=== PATIENT | male | born 1985 | race Caucasian/White ===

== ENCOUNTER 2020-01-31 09:28 | Outpatient (CLI) | payer MEDICARE, MEDICAID, SELFPAY ==
[2020-01-31 10:52] LABS: LDL Cholesterol Direct 64 mg/dL
[2020-01-31 11:15] LABS: Alanine Aminotransferase 65 U/L (4-50); Albumin Level 4.4 g/dL (3.5-5.1); Alkaline Phosphatase 94 U/L (38-126); Aspartate Amino Transferase 38 U/L (17-59); Bilirubin,Total 1.5 mg/dL (0.2-1.3); Blood Urea Nitrogen 21 mg/dL (9-20); Calcium 8.8 mg/dL (8.4-10.2); Carbon Dioxide 27 mmol/L (22-30); Chloride 106 mmol/L (98-107); Cholesterol 126 mg/dL (0-200); Estimated Glomerular Filt Rate > 60; Glucose 84 mg/dL (75-110); HDL Direct 26 mg/dL; Potassium 4.5 mmol/L (3.4-5.0); Sodium 139 mmol/L (137-145); Triglycerides 218 mg/dL (<150)
[2020-01-31 12:14] LABS: Hemoglobin A1C 4.8 % (<5.7)
== END 2020-01-31 09:29 | disposition home or self-care (01) ==
PROVIDERS: PCP Family Medicine Adolescent Medicine; Visit Provider Physician Assistant
DX: E11.9 Type 2 diabetes mellitus without complications (principal); I10 Essential (primary) hypertension; E78.01 Familial hypercholesterolemia
CPT/HCPCS: 36415; 80053; 80061; 83036

== ENCOUNTER 2020-03-25 13:49 | Emergency (ER) | payer MEDICARE, MEDICAID, SELFPAY ==
--- NOTE | ~2020-03-25 | XR_ITS ---
XR wrist RT min 3V 03/25/2020 14:27 INDICATION: Right wrist pain after recent trauma PROCEDURE: 4 views right wrist COMPARISON: No prior studies for comparison. FINDINGS: Fracture, dislocation or subluxation is not identified. The soft tissues appear within norm al limits. No foreign bodies are identified. IMPRESSION: 1: NO ACUTE BONE OR JOINT ABNORMALITY IDENTIFIED. Reviewed, dictated and finalized at location A.
[2020-03-25 13:52] VITALS: BP 128/94; PULSE 66; RESP 18; TEMP 36.7; O2SAT 98
--- NOTE | 2020-03-25 14:03 | ED.GENADULT ---
HPI - General Adult General Chief complaint: Extremity Injury, Upper Stated complaint: hand injury yesterday Time Seen by Provider: 03/25/20 13:50 Source: patient Mode of arrival: ambulatory Limitations: no limitations History of Present Illness HPI narrative: Patient is a 34-year-old male who presents to emergency department for evaluation of right wrist pain that began yesterday after falling onto the right wrist wall using his lawn more patient notes moderate aching pain worse with activity and movemen. Patient denies other injuries or complaints does note he has has intermittent numbness tingling in the hand patient has not taken anything for pain . t Related Data Home Medications Medication Instructions Recorded Confirmed clonazepam 1 mg PO BID 09/27/19 09/27/19 dicyclomine 20 mg PO Q6-8H PRN 09/27/19 09/27/19 glimepiride 4 mg PO DAILY 09/27/19 09/27/19 lamotrigine 150 mg PO BID 09/27/19 09/27/19 lisinopril 20 mg PO DAILY 09/27/19 09/27/19 metformin 1,000 mg PO BID 09/27/19 09/27/19 montelukast 10 mg PO DAILY 09/27/19 09/27/19 propranolol 160 mg PO DAILY 09/27/19 09/27/19 quetiapine [Seroquel] 200 mg PO BID 09/27/19 09/27/19 sumatriptan succinate 100 mg PO DIRECTED PRN 09/27/19 09/27/19 topiramate 50 mg PO BID 09/27/19 09/27/19 rosuvastatin mg 03/25/20 Allergies Allergy/AdvReac Type Severity Reaction Status Date / Time chlorpheniramine Allergy Unknown Other Verified 03/25/20 13:58 naproxen Allergy Unknown Other Verified 03/25/20 13:58 phenylephrine Allergy Unknown Other Verified 03/25/20 13:58 scopolamine Allergy Unknown Other Verified 03/25/20 13:58 ANTICHOLINERGICS,OTHER Allergy Unknown Other Uncoded 09/27/19 17:17 Review of Systems Review of Systems: All systems reviewed & are unremarkable except as noted in HPI and below PMFSH Past Medical History Medical History Eczema HTN (hypertension) Hyperlipidemia Mentally challenged Reflux gastritis Exam Narrative: Exam Narrative: GENERAL: Well-appearing, well-nourished, and in no acute distress. HEAD: Normocephalic, atraumatic. EYES: PERRLA and EOMI. EXTREMITIES: Normal range of motion. No edema. Tenderness of the right wrist no deformity noted SKIN: Warm, dry, no rash. NEURO: No focal deficits. Alert and oriented x3. Neurovascularly intact. Capillary refill less than 2 seconds PSYCH: Normal mood and affect. Course Course Emergency Course: Patient in the room aware of case findings treatment plan and diagnosis Vital Signs Vital signs: Vital Signs Temperature 98.1 F 03/25/20 13:52 Pulse Rate 66 03/25/20 13:52 Respiratory Rate 18 03/25/20 13:52 Blood Pressure 128/94 H 03/25/20 13:52 Pulse Oximetry 98 03/25/20 13:52 Temperature 98.1 F 03/25/20 13:52 Pulse Rate 66 03/25/20 13:52 Respiratory Rate 18 03/25/20 13:52 Blood Pressure 128/94 H 03/25/20 13:52 Pulse Oximetry 98 03/25/20 13:52 Medical Decision Making MDM Narrative Medical decision making narrative: Patients injury or pain is consistent with musculoskeletal etiology. No signs of neurological or vascular compromise on exam. Compartments and tisues are soft without signs of compartment syndrome. Pain is felt appropriate for further evaluation on an outpatient basis. Vital Signs Vital Signs: Vital Signs Temperature 98.1 F 03/25/20 13:52 Pulse Rate 66 03/25/20 13:52 Respiratory Rate 18 03/25/20 13:52 Blood Pressure 128/94 H 03/25/20 13:52 Pulse Oximetry 98 03/25/20 13:52 Temperature 98.1 F 03/25/20 13:52 Pulse Rate 66 03/25/20 13:52 Respiratory Rate 18 03/25/20 13:52 Blood Pressure 128/94 H 03/25/20 13:52 Pulse Oximetry 98 03/25/20 13:52 Imaging Data Radiologist's impression: ITS Impressions Wrist X-Ray 03/25/20 14:33 IMPRESSION: 1: NO ACUTE BONE OR JOINT ABNORMALITY IDENTIFIED. Discharge Plan Discharge Clinical Impression: Sprain an
[2020-03-25 15:01] VITALS: BP 107/76; PULSE 66; RESP 16; TEMP 36.4; O2SAT 95
== END 2020-03-25 15:19 | disposition home or self-care (01) ==
PROVIDERS: Emergency Provider Emergency Medicine; PCP Family Medicine Adolescent Medicine
DX: S63.501A Unspecified sprain of right wrist, initial encounter (principal); S66.911A Strain of unspecified muscle, fascia and tendon at wrist and hand level, right hand, initial encounter; I10 Essential (primary) hypertension; E78.5 Hyperlipidemia, unspecified; K21.9 Gastro-esophageal reflux disease without esophagitis; W18.39XA Other fall on same level, initial encounter; Y93.H2 Activity, gardening and landscaping
CPT/HCPCS: 73110; 99283

== ENCOUNTER 2021-01-15 12:08 | Outpatient (CLI) | payer MEDICARE, MEDICAID, SELFPAY ==
[2021-01-15 12:54] LABS: Alanine Aminotransferase 44 U/L (4-50); Albumin Level 4.3 g/dL (3.5-5.1); Alkaline Phosphatase 80 U/L (38-126); Anion Gap 7 mmol/L (8-16); Aspartate Amino Transferase 36 U/L (17-59); Bilirubin,Total 0.8 mg/dL (0.2-1.3); Blood Urea Nitrogen 19 mg/dL (9-20); Calcium 9.1 mg/dL (8.4-10.2); Carbon Dioxide 22 mmol/L (22-30); Chloride 112 mmol/L (98-107); Cholesterol 107 mg/dL (0-200); Estimated Glomerular Filt Rate > 60; Glucose 105 mg/dL (75-110); HDL Direct 31 mg/dL; Hemoglobin A1C 4.6 % (<5.7); Sodium 141 mmol/L (137-145); Triglycerides 144 mg/dL (<150)
[2021-01-15 13:08] LABS: LDL Cholesterol Direct 52 mg/dL
== END 2021-01-15 12:09 | disposition home or self-care (01) ==
PROVIDERS: PCP Family Medicine Adolescent Medicine; Visit Provider Physician Assistant
DX: E78.01 Familial hypercholesterolemia (principal); E11.9 Type 2 diabetes mellitus without complications; I10 Essential (primary) hypertension
CPT/HCPCS: 36415; 80053; 80061; 83036

== ENCOUNTER 2021-02-28 21:17 | Emergency (ER) | payer MEDICARE, MEDICAID, SELFPAY ==
--- NOTE | ~2021-02-28 | CT_ITS ---
EXAMINATION: CT abdomen pelvis w con EXAM DATE: 02/28/2021 22:52 INDICATION: Mid abdominal pain. TECHNIQUE: Spiral CT of the abdomen and pelvis was performed following intravenous injection of 100 m L Omnipaque 350. Axial, coronal and sagittal images of the abdomen and pelvis were reviewed. The do se-length product (DLP) for this examination was 1148.01 mGy-cm. The exposure was tailored according to patient size (auto mA exposure control), and iterative reconstruction (ASIR) was used as addition al dose reduction technique. Comparison is made to prior examination from 01/09/2015. FINDINGS: There is mild hepatic steatosis without suspicious focal lesion identified. Spleen, adrenal glands, pancreas are unremarkable. Gallbladder is unremarkable. No biliary obstruction. Portal an d splenic veins are patent. Kidneys enhance symmetrically. There is no hydronephrosis. Lobular marisela l contours bilaterally. The prostate is unremarkable. Small bilateral inguinal fat-containing hernia s. Some diffuse bladder wall thickening, could indicate chronic cystitis. Acute cystitis not excluda ble. There is no retroperitoneal or pelvic lymphadenopathy. The appendix is normal. The stomach and small bowel are unremarkable. There is expected amount of c olonic stool. No free intraperitoneal gas. The heart is normal in size. There are no pericardial or pleural effusions. The lung bases are unremarkable. The bones are unremarkable. IMPRESSION: 1. Mild diffuse bladder wall thickening, could indicate cystitis. Reviewed, dictated and finalized at location A.
[2021-02-28 21:24] VITALS: BP 124/81; PULSE 70; RESP 18; TEMP 36.2; O2SAT 100
[2021-02-28 21:40] LABS: Basophils Percent Auto 0.3 % (0.2-1.2); Eosinophils Absolute Auto 0.1 K/mm3 (0-0.3); Eosinophils Percent Auto 0.8 % (0-4.4); Hematocrit 46.6 % (42.0-52.0); Hemoglobin 16.1 g/dL (14.0-18.0); Immature Granulocyte Absolute 0.03 K/mm3 (0.00-0.031); Immature Granulocyte Percent A 0.3 % (0-0.5); Lymphocytes Absolute Auto 1.64 K/mm3 (0.9-3.2); Lymphocytes Percent Auto 16.1 % (18.3-44.2); Mean Corpuscular HGB Conc 34.5 g/dl (32-36); Mean Corpuscular Hemoglobin 31.1 pg (26-34); Mean Corpuscular Volume 90.1 fl (80-100); Mean Platelet Volume 9.6 fl (7.4-10.4); Monocytes Absolute Auto 0.4 K/mm3 (0.1-0.6); Monocytes Percent Auto 4.3 % (2.6-8.5); Neutrophils Percent Auto 78.2 % (45.5-73.1); Platelet Count Result 188 k/mm3 (150-375); Red Blood Count 5.17 M/mm3 (4.6-6.20); Red Cell Distribution Width 12.4 % (11.5-14.5); White Blood Count 10.2 K/mm3 (4.5-10.0)
[2021-02-28 21:56] LABS: Alanine Aminotransferase 60 U/L (4-50); Albumin Level 4.6 g/dL (3.5-5.1); Alkaline Phosphatase 88 U/L (38-126); Anion Gap 8 mmol/L (8-16); Aspartate Amino Transferase 38 U/L (17-59); Bilirubin,Total 1.3 mg/dL (0.2-1.3); Blood Urea Nitrogen 22 mg/dL (9-20); Calcium 9.1 mg/dL (8.4-10.2); Carbon Dioxide 25 mmol/L (22-30); Chloride 108 mmol/L (98-107); Estimated Glomerular Filt Rate 46; Glucose 138 mg/dL (75-110); Lipase 146 U/L (23-300); Sodium 141 mmol/L (137-145)
[2021-02-28 22:10] LABS: Add Urine Microscopic? YES; Appearance Urine Cloudy (Clear); Bacteria Urine Trace /hpf; Bilirubin Urine Negative (Negative); Blood Urine Negative (Negative); Color Urine Amber (Yellow); Glucose Urine UA Negative (Negative); Ketones Urine Negative (Negative); Leukocyte Esterase Ur Negative LEU/UL (Negative); Mucus Urine Heavy /lpf; Nitrate Urine Negative (Negative); Protein Urine 2+ mg/dL (Negative); RBC Urine 0-2 /hpf (0-2); Specific Grav Ur 1.027 (1.001-1.035); Squamous Epithelial Cell Urine Rare /hpf (Few); WBC Urine 0-3 /hpf
--- NOTE | 2021-02-28 22:20 | ED.GENADULT ---
HPI - General Adult General Chief complaint: Abdominal Pain Stated complaint: migraine, blood in stool and abd pain Time Seen by Provider: 02/28/21 22:16 Source: RN notes reviewed History of Present Illness HPI narrative: Patient presents emergency department from home for multiple complaints. Patient states over the past month has been having abdominal pain located around the periumbilical area associated with diarrhea. States that this is become worse today states that with this has been having intermittent blood in his stool that appears like popcorn patient also states he developed a frontal headache today consistent with his migraine headaches. States he took his home migraine medications well as Advil at home with no relief of his pain states is associated with nausea and vomiting denies any fevers or chills vision changes chest pain shortness of breath or any other symptoms Related Data Allergies Allergy/AdvReac Type Severity Reaction Status Date / Time No Known Allergies Allergy Verified 02/28/21 22:09 Review of Systems Review of Systems: Narrative: Gen.: Denies fevers or chills Eyes: Denies eye pain or visual change ENT: Denies congestion Respiratory: Denies shortness of breath or cough CV: Denies chest pain or palpitations GI: See HPI denies burning, urgency, frequency or hematuria Musculoskeletal: Denies back pain or muscle pain Neuro: Denies numbness, tingling, weakness or focal weakness reports headache Skin: Denies rash Except as documented, all other systems reviewed and negative [facility] Past Medical History Medical History (Updated 03/01/21 @ 01:40 by Nino Waters DO) ADHD Migraine headache Social History Social History (Updated 02/28/21 @ 22:21 by Nino Waters DO) Smoking status: Never smoker Exam Narrative: Exam Narrative: APPEARANCE: No acute distress, nontoxic, resting in bed EYES: EOMI, PERRL HEENT: Normocephalic, atraumatic, OMM RESPIRATORY: No respiratory distress Clear to auscultation bilaterally with no rhonchi wheezing or rales. CARDIOVASCULAR: Regular rate and rhythm without murmurs rubs or gallops. ABDOMINAL: Soft, nondistended, diffusely tender palpation no rebound or guarding Rectal: No hemorrhoids or fissures soft brown stool that is Hemoccult negative MUSCULOSKELETAl: Moves all extremities. No clubbing, cyanosis or edema. NEURO: Awake and alert x 4. Following commands, speech normal, no focal deficits SKIN:: Warm, dry. No rashes lesions or abrasions PSYCHIATRIC: Normal affect/mood, Course Course Emergency Course: : Discussed with Dr. Carranza for Dr. Santos presentation work-up discussed mildly elevated creatinine need for recheck as outpatient discussed CT results agrees with plan for Flagyl discharge to follow-up as an outpatient States she is feeling much better this time states headache has resolved Discussed with patient results of workup and diagnosis. Discussed need for follow-up with primary care, proper use of medication, and reasons to return to the emergency department. Patient understands and agrees to current treatment plan Vital Signs Vital signs: Vital Signs Temperature 97.2 F L 02/28/21 21:24 Pulse Rate 70 02/28/21 21:24 Respiratory Rate 18 02/28/21 21:24 Blood Pressure 124/81 02/28/21 21:24 Pulse Oximetry 100 02/28/21 21:24 Temperature 97.2 F L 02/28/21 21:24 Pulse Rate 70 02/28/21 21:24 Respiratory Rate 18 02/28/21 21:24 Blood Pressure 124/81 02/28/21 21:24 Pulse Oximetry 100 02/28/21 21:24 Medical Decision Making MDM Narrative Medical decision making narrative: Patient's headache was not sudden or maximal in onset. There are no focal deficits on exam. Subarachnoid hemorrhage is felt to be unlikely at this time. There is no history of fever and neck is supple to evaluation without meningismus. Meningitis is felt to be unlikely. No traumatic history or signs of trauma on evaluation. Risk factors for cerebral v
[2021-02-28] MEDS: SODIUM CHLORIDE 0.9% IV 1,000 ML 999 ML IV CONT (22:40)
[2021-02-28] MEDS: ONDANSETRON INJ 4 MG/2 ML VIAL IV PUSH (22:41)
[2021-03-01] MEDS: SODIUM CHLORIDE 0.9% IV 1,000 ML 999 ML IV CONT
[2021-03-01] MEDS: metroNIDAZOLE 250 MG TABLET 500 MG PO (01:34)
[2021-03-01] MEDS: PROMETHAZINE HCL 25 MG/ML AMPUL 12.5 MG IV PUSH (01:36)
[2021-03-01 02:01] VITALS: BP 119/79; PULSE 79; RESP 18; O2SAT 97
== END 2021-03-01 02:04 | disposition home or self-care (01) ==
PROVIDERS: Emergency Provider Emergency Medicine; PCP Family Medicine Adolescent Medicine
DX: K52.9 Noninfective gastroenteritis and colitis, unspecified (principal); G43.909 Migraine, unspecified, not intractable, without status migrainosus
CPT/HCPCS: 36415; 74177; 80053; 81001; 83690; 85025; 96361; 96365; 96375; 99284; A9270; J0131; J2405; J2550; J7030; Q9967

== ENCOUNTER 2021-03-18 10:09 | Outpatient (CLI) | payer MEDICARE, MEDICAID, SELFPAY ==
[2021-03-18 10:59] LABS: Add Urine Microscopic? YES; Appearance Urine Cloudy (Clear); Bilirubin Urine Negative (Negative); Blood Urine Negative (Negative); Color Urine Yellow (Yellow); Glucose Urine UA Negative (Negative); Ketones Urine Negative (Negative); Leukocyte Esterase Ur Negative LEU/UL (NEGATIVE); Mucus Urine Few /lpf; Nitrate Urine Negative (Negative); Protein Urine 1+ mg/dL (Negative); RBC Urine 0-2 /hpf (0-2); Specific Grav Ur 1.023 (1.001-1.035); Squamous Epithelial Cell Urine Rare /hpf (Few); Urobilinogen Urine Negative mg/dL (<2.0); WBC Urine 0-3 /hpf (0-3)
== END 2021-03-18 10:10 | disposition home or self-care (01) ==
PROVIDERS: PCP Family Medicine Adolescent Medicine; Visit Provider Physician Assistant
DX: R39.15 Urgency of urination (principal)
CPT/HCPCS: 81001; 87086

== ENCOUNTER 2021-06-23 17:43 | Emergency (ER) | payer MEDICARE, MEDICAID, SELFPAY ==
[2021-06-23 17:46] VITALS: BP 107/73; PULSE 77; RESP 18; TEMP 37; O2SAT 100
[2021-06-23] MEDS: TETANUS,DIPHTHERIA,AC PERTUSSIS ADULT (0.5 ML) BOOSTRIX IM (18:52)
[2021-06-23 18:53] LABS: Glucose Point of Care 116 mg/dl (65-105)
--- NOTE | 2021-06-23 19:20 | ED.SKABFB ---
HPI - Skin/Abscess/Foreign Bdy General Chief complaint: Skin/Abscess/Foreign Body Stated complaint: ? Spider Bite Time Seen by Provider: 06/23/21 18:32 History of Present Illness HPI narrative: Patient presents with concern for rash to the leg. He reports he was cutting his grass when his leg felt warm he looked down and saw some erythema in his leg felt heavy so he wanted come in for evaluation. He reports his initially had some itching to the area but that has now resolved and his symptoms are improving with exception of his leg feeling warm. Denies any fevers, chills, nausea, vomiting, dizziness Related Data Home Medications Medication Instructions Recorded Confirmed clonazepam 1 mg PO BID 09/27/19 09/27/19 dicyclomine 20 mg PO Q6-8H PRN 09/27/19 09/27/19 glimepiride 4 mg PO DAILY 09/27/19 09/27/19 lamotrigine 150 mg PO BID 09/27/19 09/27/19 lisinopril 20 mg PO DAILY 09/27/19 09/27/19 metformin 1,000 mg PO BID 09/27/19 09/27/19 montelukast 10 mg PO DAILY 09/27/19 09/27/19 propranolol 160 mg PO DAILY 09/27/19 09/27/19 quetiapine [Seroquel] 200 mg PO BID 09/27/19 09/27/19 sumatriptan succinate 100 mg PO DIRECTED PRN 09/27/19 09/27/19 topiramate 50 mg PO BID 09/27/19 09/27/19 rosuvastatin mg 03/25/20 Allergies Allergy/AdvReac Type Severity Reaction Status Date / Time chlorpheniramine Allergy Unknown Other Verified 06/23/21 17:50 naproxen Allergy Unknown Nose Bleed Verified 06/23/21 17:50 phenylephrine Allergy Unknown Other Verified 06/23/21 17:50 scopolamine Allergy Unknown Other Verified 06/23/21 17:50 ANTICHOLINERGICS,OTHER Allergy Unknown Other Uncoded 06/23/21 17:50 Review of Systems Review of Systems: CONSTITUTIONAL: Denies fever, chills, or sweats. EYES: Denies visual changes, redness, or discharge. ENT: Denies rhinorrhea, congestion, sore throat, or otalgia. CARDIOVASCULAR: Denies chest pain, palpitations, or edema. RESPIRATORY: Denies cough or dyspnea. GASTROINTESTINAL: Denies abdominal pain, nausea, vomiting, or diarrhea. GENITOURINARY: Denies dysuria or hematuria. SKIN: Denies current itching. MUSCULOSKELETAL: Denies back pain, joint pain, or myalgia. NEUROLOGIC: Denies headache, numbness, dizziness, or weakness. PSYCHIATRIC: Denies anxiety or depression. All systems reviewed & are unremarkable except as noted in HPI and below PMFSH Past Medical History Medical History (Updated 06/23/21 @ 19:24 by Akil Diaz MD) Eczema HTN (hypertension) Hyperlipidemia Mentally challenged Reflux gastritis Exam Narrative: GENERAL: Well-appearing, well-nourished, and in no acute distress. HEAD: Normocephalic, atraumatic. EYES: PERRLA and EOMI. ENT: Nares clear, no rhinorrhea or epistaxis. Mucous membranes moist. NECK: Supple. No adenopathy or masses. No carotid bruits or JVD ABDOMEN: Soft, nontender, nondistended, normal active bowel sounds. EXTREMITIES: Normal range of motion. No edema. SKIN: Small area of erythema on the anterior aspect of the lower leg approximately 2 cm x 2 cm there is no focal fluctuance there is no open or draining wounds there is no significant tenderness. NEURO: No focal deficits. Alert and oriented x3. PSYCH: Normal mood and affect. Course Reevaluation(s) Reevaluation #1: Patient looks clinically well glucose is reassuring Tdap was administered outpatient plan reviewed with patient Date: 06/23/21 Time: 19:22 Vital Signs Vital signs: Vital Signs Temperature 37.0 C 06/23/21 17:46 Pulse Rate 77 06/23/21 17:46 Respiratory Rate 18 06/23/21 17:46 Blood Pressure 107/73 06/23/21 17:46 Pulse Oximetry 100 06/23/21 17:46 Temperature 37.0 C 06/23/21 17:46 Pulse Rate 77 06/23/21 17:46 Respiratory Rate 18 06/23/21 17:46 Blood Pressure 107/73 06/23/21 17:46 Pulse Oximetry 100 06/23/21 17:46 MDM - Skin/Abscess/Foreign Bdy MDM Narrative Medical decision making narrative: H&P as above, vss, pt looks clinically well, exam without significant tende
== END 2021-06-23 19:33 | disposition home or self-care (01) ==
PROVIDERS: Emergency Provider Emergency Medicine; PCP Family Medicine Adolescent Medicine
DX: L25.9 Unspecified contact dermatitis, unspecified cause (principal); I10 Essential (primary) hypertension; E78.5 Hyperlipidemia, unspecified; Z23 Encounter for immunization
CPT/HCPCS: 82948; 90471; 90715; 99283

== ENCOUNTER 2021-07-06 19:22 | Emergency (ER) | payer MEDICARE, MEDICAID, SELFPAY ==
[2021-07-06 19:34] VITALS: BP 117/79; PULSE 68; RESP 16; TEMP 36.6; O2SAT 100
--- NOTE | 2021-07-06 19:51 | ED.GENADULT ---
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 He also reports being stung on right index finger. He reports right upper eyelid swelling, erythema, and itching. Related Data Home Medications Medication Instructions Recorded Confirmed clonazepam 1 mg PO BID 09/27/19 07/06/21 lamotrigine 150 mg PO BID 09/27/19 07/06/21 lisinopril 20 mg PO DAILY 09/27/19 07/06/21 metformin 1,000 mg PO BID 09/27/19 07/06/21 montelukast 10 mg PO DAILY 09/27/19 07/06/21 propranolol 160 mg PO DAILY 09/27/19 07/06/21 quetiapine [Seroquel] 200 mg PO BID 09/27/19 07/06/21 sumatriptan succinate 100 mg PO DIRECTED PRN 09/27/19 07/06/21 topiramate 50 mg PO BID 09/27/19 07/06/21 rosuvastatin 20 mg PO DAILY 03/25/20 07/06/21 Adult One Daily Multivitamin 1 cap PO DAILY 07/06/21 07/06/21 Allergies Allergy/AdvReac Type Severity Reaction Status Date / Time chlorpheniramine Allergy Unknown Other Verified 07/06/21 19:37 naproxen Allergy Unknown Nose Bleed Verified 07/06/21 19:37 phenylephrine Allergy Unknown Other Verified 07/06/21 19:37 scopolamine Allergy Unknown Other Verified 07/06/21 19:37 ANTICHOLINERGICS,OTHER Allergy Unknown Other Uncoded 07/06/21 19:37 Review of Systems Review of Systems: Denies fever, chills, sweats, change in appetite, malaise, poor p.o. intake, recent weight loss, change in appetite, myalgias, lymphadenopathy, LOC, dizziness, vision changes, eye drainage, burning sensation, petechiae, blistering, streaking, warmth, lesions, easy bruising, lip/tongue/throat swelling, facial swelling, abdominal pain, nausea, vomiting, numbness, tingling, loss of sensation, cough, wheezing, chest pain, and heart palpitations/murmurs. [facility] Past Medical History Medical History (Updated 07/06/21 @ 20:07 by Randall Gomez, OLI, ) Eczema HTN (hypertension) Hyperlipidemia Mentally challenged Reflux gastritis Comments I have reviewed and agree with the patient's past medical, surgical, social, and family hx as documented by the RN. There is no relevant family history pertinent to the presenting complaint. Exam Narrative: GENERAL: Well-appearing, well-nourished, and in no acute distress. HEAD: Normocephalic, atraumatic. No facial swelling appreciated. EYES: PERRLA and EOMI. Moderate erythema and swelling noted to right upper eyelid. Small puncture wound consistent with insect sting noted to lateral aspect of right upper eyelid. Puncture wound measures approximately 1 mm in size. No evidence of drainage. ENT: Nares clear, no rhinorrhea or epistaxis.Mucous membranes moist and pink. Uvula is midline without erythema and swelling. No evidence of obstruction, petechial rash, cobblestoning, lesions, ulcers, erythema, swelling, exudates, peritonsillar abscess, tenting, or drooling. Breath odor and voice normal. NECK: Supple. No Lymphadenopathy or nuchal rigidity appreciated. CHEST: Bilateral lung conn are clear to auscultation. No respiratory distress. No evidence of cough or pleuritic cp upon examination. HEART: Regular rate and rhythm. No murmur, gallop, or rub heard. EXTREMITIES: Normal range of motion. No edema. SKIN: Warm, dry. Right index finger with mild erythema. Small puncture wound noted to medial aspect of proximal phalanx of right index finger. Puncture wound consistent with insect sting. Measures approx 1 mm in size. No evidence of cellulitis, abscess, streaking, induration, abrasions/lacerations, petechiae, hematoma, contusion, drainage, or bleeding. NEURO: No focal deficits. Alert and oriented x3. Course Vital Signs Vital signs: Vital Signs Tempera
[2021-07-06] MEDS: methylPREDNISolone SOD SUCC 125 MG VIAL IM (20:02)
== END 2021-07-06 20:17 | disposition home or self-care (01) ==
PROVIDERS: Emergency Provider Nurse Practitioner Family; PCP Family Medicine Adolescent Medicine
DX: T63.441A Toxic effect of venom of bees, accidental (unintentional), initial encounter (principal); I10 Essential (primary) hypertension; E78.5 Hyperlipidemia, unspecified; F99 Mental disorder, not otherwise specified; K21.9 Gastro-esophageal reflux disease without esophagitis
CPT/HCPCS: 96372; 99213; G0463; J2930

== ENCOUNTER 2022-06-05 19:09 | Emergency (ER) | payer MEDICARE, MEDICAID, SELFPAY ==
[2022-06-05 19:20] VITALS: BP 124/95; PULSE 69; RESP 16; TEMP 36.6; O2SAT 100
--- NOTE | 2022-06-05 19:30 | ED.SKABFB ---
HPI - Skin/Abscess/Foreign Bdy General Chief complaint: Skin/Abscess/Foreign Body Stated complaint: chemical burn Time Seen by Provider: 06/05/22 19:30 Source: patient, RN notes reviewed and old records reviewed Mode of arrival: ambulatory History of Present Illness HPI narrative: Patient reports he was cleaning at his grandmother's house using oxy-clean and he had it in his pocket and it broke going onto his skin on his right upper thigh, which occurred last night. patient reports that he went and showered immediately after it happened. Patient has red irregular shaped irritated skin area to the lateral aspect of his right thigh with no present drainage noted, small scab area noted, area measures 14 cm X 4 cm. patient denies any acute pain to area or any chills or sweats, denies any fevers. MD complaint: rash Onset (ago): day(s) (1) Tetanus up to date: yes Location: RLE (lateral thigh) Related Data Home Medications Medication Instructions Recorded Confirmed clonazepam 1 mg tablet 1 mg PO BID 09/27/19 06/05/22 quetiapine 200 mg tablet (Seroquel) 200 mg PO BID 09/27/19 06/05/22 Allergies Allergy/AdvReac Type Severity Reaction Status Date / Time chlorpheniramine Allergy Unknown Other Verified 06/05/22 19:18 naproxen Allergy Unknown Nose Bleed Verified 06/05/22 19:18 phenylephrine Allergy Unknown Other Verified 06/05/22 19:18 scopolamine Allergy Unknown Other Verified 06/05/22 19:18 ANTICHOLINERGICS,OTHER Allergy Unknown Other Uncoded 06/05/22 19:18 [facility] Past Medical History Medical History (Updated 06/05/22 @ 20:00 by Debora Enrique NP) ADHD Anxiety and depression Diabetes type 2, controlled Eczema History of arm fracture left distal radius 04/1990 History of chickenpox 04/1990 HTN (hypertension) Mentally challenged Migraine headache Reflux gastritis Surgical History Surgical History (Updated 05/11/22 @ 08:07 by Earnest Santos MD) History of tonsillectomy (2007) Social History Social History (Updated 06/05/22 @ 20:00 by Debora Enrique NP) Smoking status: Never smoker Substance use type: does not use Living arrangements: with family Gender identity (if verbalized by the patient): Male Comments At time of signature, agree with nursing past medical, surgical, social and family history. There is no relevant family history pertinent to the presenting complaint Exam Narrative: GENERAL: Well-appearing, well-nourished, and in no acute distress. HEAD: Normocephalic, atraumatic. EYES: PERRLA and EOMI. ENT: Nares clear, no rhinorrhea or epistaxis. Mucous membranes moist. TMs normal with good light reflex throat pink with no exudates or lesions no tonsils present NECK: Supple. No lymphadenopathy CHEST: Clear to auscultation. No respiratory distress. No cough or congestion SaO2 100% on room air HEART: Regular rate and rhythm. No murmur heard. Normal peripheral pulses. ABDOMEN: Soft, nontender, nondistended, normal active bowel sounds. EXTREMITIES: Normal range of motion. No edema. SKIN: Warm, dry, no rash. 14 cm x 4 cm red irritated area to lateral right thigh no drainage noted some scabbing denies any acute pain to area NEURO: No focal deficits. Alert and oriented x3. Course Course Level of Care: Express Care Visit Vital Signs Vital signs: Vital Signs Temperature 36.6 C 06/05/22 19:20 Pulse Rate 69 06/05/22 19:20 Respiratory Rate 16 06/05/22 19:20 Blood Pressure 124/95 H 06/05/22 19:20 Pulse Oximetry 69 L 06/05/22 19:20 Temperature 36.6 C 06/05/22 19:20 Pulse Rate 69 06/05/22 19:20 Respiratory Rate 16 06/05/22 19:20 Blood Pressure 124/95 H 06/05/22 19:20 Pulse Oximetry 69 L 06/05/22 19:20 MDM - Skin/Abscess/Foreign Bdy Differential Diagnosis Differential diagnosis: Likely abscess of skin or subcutaneous tissue, cellulitis, eczema and contact dermatitis Medical Records Attestation: I reviewed the patient's medical records. Critical C
== END 2022-06-05 19:48 | disposition home or self-care (01) ==
PROVIDERS: Emergency Provider Registered Nurse; PCP Family Medicine Adolescent Medicine
DX: L24.0 Irritant contact dermatitis due to detergents (principal); E11.9 Type 2 diabetes mellitus without complications; I10 Essential (primary) hypertension; F41.9 Anxiety disorder, unspecified; F32.A Depression, unspecified; F79 Unspecified intellectual disabilities
CPT/HCPCS: 99213; G0463

== ENCOUNTER 2022-08-03 15:22 | Outpatient (CLI) | payer MEDICARE, MEDICAID, SELFPAY ==
[2022-08-03 16:07] LABS: Hemoglobin A1C 5.6 % (<5.7)
[2022-08-03 16:13] LABS: Alanine Aminotransferase 49 U/L (6-50); Albumin Level 4.8 g/dL (3.5-5.1); Alkaline Phosphatase 99 U/L (38-126); Anion Gap 13 mmol/L (8-16); Aspartate Amino Transferase 35 U/L (17-59); Bilirubin,Total 1.2 mg/dL (0.2-1.3); Blood Urea Nitrogen 25 mg/dL (9-20); Calcium 9.6 mg/dL (8.4-10.2); Carbon Dioxide 18 mmol/L (22-30); Chloride 111 mmol/L (98-107); Cholesterol 160 mg/dL (0-200); Estimated Glomerular Filt Rate > 60; Glucose 118 mg/dL (65-110); HDL Direct 36 mg/dL; Potassium 4.1 mmol/L (3.4-5.0); Sodium 142 mmol/L (137-145); Triglycerides 143 mg/dL (<150)
[2022-08-03 16:24] LABS: LDL Cholesterol Direct 81 mg/dL
== END 2022-08-03 15:23 | disposition home or self-care (01) ==
PROVIDERS: PCP Family Medicine Adolescent Medicine; Visit Provider Family Medicine Adolescent Medicine
DX: G62.9 Polyneuropathy, unspecified (principal); E11.9 Type 2 diabetes mellitus without complications; K76.0 Fatty (change of) liver, not elsewhere classified; E78.01 Familial hypercholesterolemia; I10 Essential (primary) hypertension
CPT/HCPCS: 36415; 80053; 80061; 82607; 83036; 84443

== ENCOUNTER 2023-02-05 13:52 | Emergency (ER) | payer MEDICARE, MEDICAID, SELFPAY ==
[2023-02-05 14:42] VITALS: BP 131/94; PULSE 71; RESP 16; TEMP 36.9; O2SAT 99
--- NOTE | 2023-02-05 15:16 | ED.URI ---
HPI - URI/Sore Throat General Chief Complaint: Upper Respiratory Infection Stated Complaint: CHEST CONGESITON/VOMITING Time Seen by Provider: 02/05/23 15:16 Source: patient and RN notes reviewed Mode of arrival: ambulatory Limitations: no limitations History of Present Illness HPI Narrative: 37-year-old male with a history of diabetes and hypertension presented for complaint of sinus congestion, drainage, and cough for about 1 month. Reports a brief episode of vomiting last week, which resolved on its own. He denies associated shortness of breath, nausea, diarrhea, fevers or chills. Reports taking multiple [id number] medications for symptoms. Denies sick contacts. MD elicited complaint: cough Related Data Home Medications Medication Instructions Recorded Confirmed clonazepam 1 mg tablet 1 mg PO BID 09/27/19 02/05/23 quetiapine 200 mg tablet (Seroquel) 200 mg PO TID 07/27/22 02/05/23 lamotrigine 150 mg tablet 150 mg PO DAILY 02/05/23 02/05/23 Allergies Allergy/AdvReac Type Severity Reaction Status Date / Time chlorpheniramine Allergy Unknown Other Verified 02/05/23 15:12 naproxen Allergy Unknown Nose Bleed Verified 02/05/23 15:12 phenylephrine Allergy Unknown Other Verified 02/05/23 15:12 scopolamine Allergy Unknown Other Verified 02/05/23 15:12 ANTICHOLINERGICS,OTHER Allergy Unknown Other Uncoded 02/05/23 15:12 Review of Systems Review of Systems: CONSTITUTIONAL: Denies malaise, chills, sweats, fever EYES: Denies visual changes, redness, or discharge ENT: Reports rhinorrhea, congestion, sinus pain, denies otalgia, sore throat CARDIOVASCULAR: Denies chest pain, palpitations, edema RESPIRATORY: Reports cough, post nasal drainage. Denies dyspnea GASTROINTESTINAL: Denies abdominal pain, nausea, vomiting, diarrhea SKIN: Denies rash or itching MUSCULOSKELETAL: Denies myalgia NEUROLOGIC: Denies headache PMFSH Past Medical History Medical History ADHD Anxiety and depression Diabetes type 2, controlled Eczema History of arm fracture left distal radius 04/1990 History of chickenpox 04/1990 HTN (hypertension) Mentally challenged Migraine headache Reflux gastritis Surgical History Surgical History History of tonsillectomy (2007) Social History Social History Smoking status: Never smoker Second hand tobacco smoke exposure: No Alcohol intake: never Substance use: never Substance use type: does not use Living arrangements: with family Occupation/Education: other Gender identity (if verbalized by the patient): Male Exam Narrative: GENERAL: mildly Ill-appearing, nontoxic no acute distress. HEAD: Normocephalic EYES: PERRLA, conjunctivae clear ENT: Mucous membranes moist. TMs pearly riojas with dull light reflex bilaterally; no tragal tenderness. Oropharynx without lesions or exudate CHEST: Clear to auscultation, breath sounds equal. No wheezing, rhonchi, rales, or stridor. No respiratory distress, speaks in full sentences. HEART: Regular rate and rhythm. No murmur heard. SKIN: Warm, dry, no rash. NEURO: Alert and oriented x3. PSYCH: Normal mood and affect Course Course Emergency Course: Patient is aware of diagnosis, understands and agrees to treatment plan. Anticipatory guidance given. Patient agrees to follow-up as directed and is aware of reasons to seek care at the emergency department. Portions of this record may have been created with voice recognition software Level of Care: Express Care Visit Vital Signs Vital signs: Vital Signs Temperature 98.4 F 02/05/23 14:42 Pulse Rate 71 02/05/23 14:42 Respiratory Rate 16 02/05/23 14:42 Blood Pressure 131/94 H 02/05/23 14:42 Pulse Oximetry 99 02/05/23 14:42 Temperature 98.4 F 02/05/23 14:42 Pulse Rate 71 02/05/23 14:42 Respiratory Rate
== END 2023-02-05 15:26 | disposition home or self-care (01) ==
PROVIDERS: Emergency Provider Nurse Practitioner Family; PCP Family Medicine Adolescent Medicine
DX: J06.9 Acute upper respiratory infection, unspecified (principal); F41.9 Anxiety disorder, unspecified; F32.A Depression, unspecified; I10 Essential (primary) hypertension; E11.9 Type 2 diabetes mellitus without complications
CPT/HCPCS: 99213; G0463

== ENCOUNTER 2023-04-19 11:04 | Emergency (ER) | payer MEDICARE, MEDICAID, SELFPAY ==
--- NOTE | 2023-04-19 11:11 | ED.URI ---
HPI - URI/Sore Throat General Chief Complaint: Upper Respiratory Infection Stated Complaint: congestion,cough Time Seen by Provider: 04/19/23 11:55 Source: patient and RN notes reviewed Mode of arrival: ambulatory Limitations: no limitations History of Present Illness HPI Narrative: 38-year-old male presents with concern for cough, chest congestion, vomiting for 1 week. Reports he has been using DayQuil and NyQuil without relief. Reports he is able to keep down rice and Sprite. He has not vomited last couple days. He denies abdominal pain, headache, fever, aches, chills, sweats, sick contacts MD elicited complaint: cough and sore throat Related Data Home Medications Medication Instructions Recorded Confirmed clonazepam 1 mg tablet 1 mg PO BID 09/27/19 04/19/23 quetiapine 200 mg tablet (Seroquel) 200 mg PO TID 07/27/22 04/19/23 lamotrigine 150 mg tablet 150 mg PO DAILY 02/05/23 04/19/23 Allergies Allergy/AdvReac Type Severity Reaction Status Date / Time chlorpheniramine Allergy Unknown Other Verified 04/19/23 11:22 naproxen Allergy Unknown Nose Bleed Verified 04/19/23 11:22 phenylephrine Allergy Unknown Other Verified 04/19/23 11:22 scopolamine Allergy Unknown Other Verified 04/19/23 11:22 ANTICHOLINERGICS,OTHER Allergy Unknown Other Uncoded 04/19/23 11:22 Review of Systems Review of Systems: CONSTITUTIONAL: Reports malaise. Denies chills, sweats, or fever. EYES: Denies visual changes, redness, or discharge. ENT: Reports rhinorrhea, congestion, sore throat. Sinus pain, otalgia CARDIOVASCULAR: Denies chest pain, palpitations, or edema. RESPIRATORY: Reports cough. Denies dyspnea. GASTROINTESTINAL: Denies abdominal pain, diarrhea. Reports nausea and vomiting SKIN: Denies rash or itching. MUSCULOSKELETAL: Reports myalgia. NEUROLOGIC: Denies headache. All systems reviewed & are unremarkable except as noted in HPI and below PMFSH Past Medical History Medical History ADHD Anxiety and depression Diabetes type 2, controlled Eczema History of arm fracture left distal radius 04/1990 History of chickenpox 04/1990 HTN (hypertension) Mentally challenged Migraine headache Reflux gastritis Surgical History Surgical History History of tonsillectomy (2008) Social History Social History Smoking status: Never smoker Second hand tobacco smoke exposure: No Alcohol intake: never Substance use: never Substance use type: does not use Living arrangements: with family Occupation/Education: other Gender identity (if verbalized by the patient): Male Comments At time of signature, agree with nursing past medical, surgical, social and family history. There is no relevant family history pertinent to the presenting complaint Exam Narrative: GENERAL: Well-appearing, well-nourished, and in no acute distress. HEAD: Normocephalic EYES: PERRLA, conjunctivae clear ENT: Nares clear, clear discharge. Mucous membranes moist. TM pearly riojas with dull light reflex bilaterally; no tragal tenderness. Oropharynx erythematous without lesions. Tonsils not enlarged and without exudate, no drooling, no hoarseness, no trismus, uvula midline. NECK: Supple. No lymphadenopathy CHEST: Clear to auscultation, breath sounds equal. No wheezing, rhonchi, rales, or stridor. No respiratory distress, speaks in full sentences. HEART: Regular rate and rhythm. No murmur heard. SKIN: Warm, dry, no rash. NEURO: Alert and oriented x3. PSYCH: Normal mood and affect Course Course Emergency Course: Patient is aware of diagnosis, understands and agrees to treatment plan. Anticipatory guidance given. Patient agrees to follow-up as directed and is aware of reasons to seek care at the emergency department. Portions of this record may have been created with voice recogni
[2023-04-19 11:17] VITALS: BP 111/85; PULSE 75; RESP 16; TEMP 36.4; O2SAT 100
== END 2023-04-19 12:16 | disposition home or self-care (01) ==
PROVIDERS: Emergency Provider Nurse Practitioner; PCP Family Medicine Adolescent Medicine
DX: J02.0 Streptococcal pharyngitis (principal); F41.9 Anxiety disorder, unspecified; F32.A Depression, unspecified; E11.9 Type 2 diabetes mellitus without complications; I10 Essential (primary) hypertension; Z20.822 Contact with and (suspected) exposure to COVID-19
CPT/HCPCS: 87426; 87804; 87880; 99213; C9803; G0463

== ENCOUNTER 2023-08-12 12:44 | Emergency (ER) | payer MEDICARE, MEDICAID, SELFPAY ==
--- NOTE | 2023-08-12 12:53 | ED.URI ---
HPI - URI/Sore Throat General Chief Complaint: Upper Respiratory Infection Stated Complaint: Nausea;Congestion;Pain on right of face Source: patient and RN notes reviewed History of Present Illness HPI Narrative: 38 yo M presents to urgent care with mom at side. Pt states he has been sick with a runny nose since some day last week. Pt states it has gotten worse now and he is unable to breathe out of the right side of his nose. Pt states it feels like there is something blocking his right side of nose. Pt also reports a slight sore throat and nausea. Denies any vomiting, fevers, diarrhea, chest pain, or SOB. Related Data Home Medications Medication Instructions Recorded Confirmed clonazepam 1 mg tablet 1 mg PO BID 09/27/19 08/12/23 quetiapine 200 mg tablet (Seroquel) 200 mg PO TID 07/27/22 08/12/23 lamotrigine 150 mg tablet 150 mg PO DAILY 02/05/23 08/12/23 Allergies Allergy/AdvReac Type Severity Reaction Status Date / Time chlorpheniramine Allergy Unknown Other Verified 08/12/23 12:55 naproxen Allergy Unknown Nose Bleed Verified 08/12/23 12:55 phenylephrine Allergy Unknown Other Verified 08/12/23 12:55 scopolamine Allergy Unknown Other Verified 08/12/23 12:55 ANTICHOLINERGICS,OTHER Allergy Unknown Other Uncoded 08/12/23 12:55 Review of Systems Review of Systems: Pertinent positives and pertinent negatives per HPI. [facility] Past Medical History Medical History ADHD Anxiety and depression Diabetes type 2, controlled Eczema History of arm fracture left distal radius 04/1990 History of chickenpox 04/1990 HTN (hypertension) Mentally challenged Migraine headache Reflux gastritis Surgical History Surgical History History of tonsillectomy (2007) Social History Social History Smoking status: Never smoker Second hand tobacco smoke exposure: No Alcohol intake: never Substance use: never Substance use type: does not use Living arrangements: with family Occupation/Education: other Gender identity (if verbalized by the patient): Male Comments At the time of my signature, I reviewed and agree with the nursing past medical, surgical, social, and family history. There is no relevant family history pertinent to the patient complaint. Exam Narrative: GENERAL: This is a well-nourished, well-developed patient, in no apparent distress. HEAD: normocephalic, atraumatic. EYES: Sclera clear/white. Vision is grossly intact. EARS: External ears normal, auditory canals clear and without drainage, TMs normal without perforation. Hearing grossly intact. NOSE: 1 cm polyp noted to right lateral nare. tenderness noted to right maxillary sinus. THROAT: Mucous membranes moist, posterior pharynx clear. NECK: Neck supple, non-tender without lymphadenopathy, masses or thyromegaly. CARDIOVASCULAR: Regular rate and rhythm without murmurs, gallops, or rubs. RESPIRATORY: Clear to auscultation. Breath sounds equal bilaterally. No wheezes, rales, or rhonchi. GASTROINTESTINAL: Abdomen soft, non-tender, nondistended. Bowel sounds are active. No hepato-splenomegaly, or palpable masses. No guarding. SKIN: erythremic skin over nose, uncertain if this is normal for pt or not. NEURO: awake, alert, and oriented to person, place and time. There were no obvious focal neurologic abnormalities. Course Course Level of Care: Express Care Visit Vital Signs Vital signs: reviewed MDM - URI/Sore Throat MDM Narrative Medical decision making narrative: take the antibiotics as directed. Increase your Vitamin C and water and electrolyte intake. Follow up with ENT if symptoms persist after antibiotics are complete. Differential Diagnosis Differential diagnosis: Likely upper respiratory infection, sinusitis and viral infection Critical Care Time Critical Care
[2023-08-12 12:57] VITALS: BP 115/90; PULSE 74; RESP 16; TEMP 35.9; O2SAT 100
== END 2023-08-12 13:11 | disposition home or self-care (01) ==
PROVIDERS: Emergency Provider Nurse Practitioner Family; PCP Family Medicine Adolescent Medicine
DX: J33.9 Nasal polyp, unspecified (principal); B34.9 Viral infection, unspecified; J32.9 Chronic sinusitis, unspecified; E11.9 Type 2 diabetes mellitus without complications; I10 Essential (primary) hypertension; F41.9 Anxiety disorder, unspecified; F32.A Depression, unspecified; F79 Unspecified intellectual disabilities
CPT/HCPCS: 99213; G0463

== ENCOUNTER 2023-10-23 18:03 | Emergency (ER) | payer MEDICARE, MEDICAID, SELFPAY ==
[2023-10-23 18:16] VITALS: BP 113/84; PULSE 69; RESP 16; TEMP 37.7; O2SAT 100
--- NOTE | 2023-10-23 18:18 | ED.URI ---
HPI - URI/Sore Throat General Chief Complaint: Upper Respiratory Infection Stated Complaint: COUGH/CONGESTION/VOMITING Time Seen by Provider: 10/23/23 18:18 Source: patient, RN notes reviewed and old records reviewed Mode of arrival: ambulatory Limitations: no limitations History of Present Illness HPI Narrative: 38 year old male presents to [facility] care accompanied by mother with complaint of cough with congestion nasal drainage for 2 week duration. Mother reports that patient has been taking OTC medications without improvement. Patient reports 3 day history of vomiting with no diarrhea or any complaints of abdominal pain. Patient reports that he has been able to keep some food and fluids down today. Patient reports no known recent fevers, chills or any body aches.Patient reports some chest discomfort when he vomits. MD elicited complaint: cough and other (congestion and vomiting) Pertinent past history: pneumonia and other (strep) Onset (ago): week(s) (2) Severity: moderate Able to tolerate fluids by mouth: Yes Treatments prior to arrival: cold medicine Related Data Home Medications Medication Instructions Recorded Confirmed clonazepam 1 mg tablet 1 mg PO BID 09/27/19 08/16/23 quetiapine 200 mg tablet (Seroquel) 200 mg PO TID 07/27/22 08/16/23 lamotrigine 150 mg tablet 150 mg PO DAILY 02/05/23 08/16/23 montelukast 10 mg tablet 10 mg PO DAILY 08/16/23 08/16/23 (Singulair) Allergies Allergy/AdvReac Type Severity Reaction Status Date / Time chlorpheniramine Allergy Unknown Other Verified 10/23/23 18:13 naproxen Allergy Unknown Nose Bleed Verified 10/23/23 18:13 phenylephrine Allergy Unknown Other Verified 10/23/23 18:13 scopolamine Allergy Unknown Other Verified 10/23/23 18:13 ANTICHOLINERGICS,OTHER Allergy Unknown Other Uncoded 10/23/23 18:13 Review of Systems Review of Systems: CONSTITUTIONAL:Reports malaise, chills, sweats, or fever. EYES: Denies visual changes, redness, or discharge. ENT: Reports rhinorrhea, congestion, sinus pain, no otalgia and some sore throat. CARDIOVASCULAR: Denies chest pain, palpitations, or edema.states chest soreness whe he vomits RESPIRATORY: Reports cough.? Denies dyspnea. GASTROINTESTINAL: Denies abdominal pain, positive for nausea, vomiting,no diarrhea SKIN: Denies rash or itching. MUSCULOSKELETAL: Denies myalgia. NEUROLOGIC: Denies headache. All systems reviewed & are unremarkable except as noted in HPI and below PMFSH Past Medical History Medical History ADHD Anxiety and depression Diabetes type 2, controlled Eczema History of arm fracture left distal radius 04/1990 History of chickenpox 04/1990 HTN (hypertension) Mentally challenged Migraine headache Reflux gastritis Surgical History Surgical History History of tonsillectomy (2007) Family History Family History Other Diabetes mellitus Heart disease Hypertension Social History Social History Smoking status: Never smoker Second hand tobacco smoke exposure: No Alcohol intake: never Substance use: never Substance use type: does not use Lack of Transportation: No Lack of Food: Never True Current Housing: I Have Housing Concerned About Future Housing: No Difficulty Paying Gas/Electric Bills: No Difficulty Paying for Meds: No Currently Unemployed: No Education: High School Diploma/GED Difficulty w/ Childcare or Family Care: No Living arrangements: with family Occupation/Education: other Gender identity (if verbalized by the patient): Male Comments At time of signature, agree with nursing past medical, surgical, social and family history. There is no relevant family history pertinent to the presenting complaint Exam Narrative: GEN
== END 2023-10-23 18:58 | disposition home or self-care (01) ==
PROVIDERS: Emergency Provider Registered Nurse; PCP Family Medicine Adolescent Medicine
DX: J06.9 Acute upper respiratory infection, unspecified (principal); R11.2 Nausea with vomiting, unspecified; E11.9 Type 2 diabetes mellitus without complications; I10 Essential (primary) hypertension; F41.9 Anxiety disorder, unspecified; F32.A Depression, unspecified; F79 Unspecified intellectual disabilities
CPT/HCPCS: 87081; 87880; 99213; G0463

== ENCOUNTER 2023-11-15 12:30 | Outpatient (CLI) | payer MEDICARE, MEDICAID, SELFPAY ==
[2023-11-15 13:06] LABS: Alanine Aminotransferase 38 U/L (6-50); Albumin Level 4.4 g/dL (3.5-5.1); Alkaline Phosphatase 103 U/L (38-126); Anion Gap 10 mmol/L (8-16); Aspartate Amino Transferase 32 U/L (17-59); Bilirubin,Total 1.7 mg/dL (0.2-1.3); Blood Urea Nitrogen 24 mg/dL (9-20); Carbon Dioxide 24 mmol/L (22-30); Chloride 104 mmol/L (98-107); Cholesterol 143 mg/dL (0-200); Estimated Glomerular Filt Rate > 60; Glucose 248 mg/dL (65-110); HDL Direct 41 mg/dL; Sodium 138 mmol/L (137-145); Triglycerides 165 mg/dL (<150)
[2023-11-15 13:17] LABS: LDL Cholesterol Direct 73 mg/dL
[2023-11-15 13:21] LABS: Hemoglobin A1C 7.4 % (<5.7)
== END 2023-11-15 12:31 | disposition home or self-care (01) ==
PROVIDERS: PCP Family Medicine Adolescent Medicine; Visit Provider Nurse Practitioner Family
DX: E11.42 Type 2 diabetes mellitus with diabetic polyneuropathy (principal); K76.0 Fatty (change of) liver, not elsewhere classified; E78.01 Familial hypercholesterolemia
CPT/HCPCS: 36415; 80053; 80061; 82607; 83036

== ENCOUNTER 2023-12-20 10:34 | Emergency (ER) | payer MEDICARE, MEDICAID, SELFPAY ==
--- NOTE | ~2023-12-20 | XR_ITS ---
XR chest 2V DATE: 12/20/2023 11:03 INDICATION: Productive cough for one month TECHNIQUE: 2 views COMPARISON: 10/06/2016 CT pulmonary scan 10/06/2016 PA and lateral chest FINDINGS: There is minimal infiltrate or atelectasis at the lung bases. The lungs otherwise appear cl ear. No pleural effusion or pulmonary vascular congestion or pneumothorax. Normal heart size. No hilar or mediastinal enlargement. Included skeletal structures are unremarkable. IMPRESSION: Minimal infiltrate or atelectasis at the lung bases Reviewed, dictated and finalized at location L. [facility] [employer]
--- NOTE | 2023-12-20 10:40 | ED.URI ---
HPI - URI/Sore Throat General Chief Complaint: Upper Respiratory Infection Stated Complaint: Covid test Time Seen by Provider: 12/20/23 10:50 Source: patient Mode of arrival: ambulatory Limitations: no limitations History of Present Illness HPI Narrative: Carlos is a 38-year-old male patient presenting to the clinic today with complaints of a cough and nasal congestion x1 month. Mother reports symptoms have been going on for 1 month. Patient reports he is bringing up some green phlegm. Denies any fever or chills. Does report a sore throat as well. MD elicited complaint: cough, sore throat and nasal congestion Related Data Home Medications Medication Instructions Recorded Confirmed clonazepam 1 mg tablet 1 mg PO BID 09/27/19 12/20/23 quetiapine 200 mg tablet (Seroquel) 200 mg PO TID 07/27/22 12/20/23 lamotrigine 150 mg tablet 150 mg PO DAILY 02/05/23 12/20/23 montelukast 10 mg tablet 10 mg PO DAILY 08/16/23 12/20/23 (Singulair) fluorometholone 0.1 % eye 1 drp ophthalmic (eye) DIRECTED 12/20/23 12/20/23 drops,suspension Allergies Allergy/AdvReac Type Severity Reaction Status Date / Time chlorpheniramine Allergy Unknown Other Verified 12/20/23 10:57 naproxen Allergy Unknown Nose Bleed Verified 12/20/23 10:57 phenylephrine Allergy Unknown Other Verified 12/20/23 10:57 scopolamine Allergy Unknown Other Verified 12/20/23 10:57 ANTICHOLINERGICS,OTHER Allergy Unknown Other Uncoded 12/20/23 10:57 Review of Systems Review of Systems: Pertinent positives per HPI. Patient denies any fever, chills, rash, headache, visual changes, dizziness, chest pain, palpitations, diarrhea, constipation, abdominal pain, or any urinary issues. [facility] Past Medical History Medical History ADHD Anxiety and depression Diabetes type 2, controlled Eczema History of arm fracture left distal radius 04/1990 History of chickenpox 04/1990 HTN (hypertension) Mentally challenged Migraine headache Reflux gastritis Surgical History Surgical History History of tonsillectomy (2007) Family History Family History Other Diabetes mellitus Heart disease Hypertension Social History Social History Smoking status: Never smoker Second hand tobacco smoke exposure: No Alcohol intake: never Substance use: never Substance use type: does not use Lack of Transportation: No Lack of Food: Never True Current Housing: I Have Housing Concerned About Future Housing: No Difficulty Paying Gas/Electric Bills: No Difficulty Paying for Meds: No Currently Unemployed: No Education: High School Diploma/GED Difficulty w/ Childcare or Family Care: No Living arrangements: with family Occupation/Education: other Gender identity (if verbalized by the patient): Male Comments At the time of my signature, I reviewed and agree with the nursing past medical, surgical, social, and family history. There is no relevant family history pertinent to the patient complaint. Exam Narrative: General: Well-developed, obese, in no apparent distress Head: Normocephalic, atraumatic Eyes: Pupils equally round and reactive to light bilaterally, EOM intact, sclera and conjunctive clear, no discharge, lids normal Ears: TMs intact and congested, ear canals clear, no drainage, grossly hearing normal. Nose: Nares patent, clear discharge, no inflammation, no sinus tenderness. Mouth: Oral pharynx may without lesions or masses, good dentition, MMM. Neck: Supple, trachea midline, no enlargement of anterior or posterior cervical nodes, no thyroid masses or goiter palpable. Cardio: Regular rate and rhythm, s1 and s2 normal, no murmur appreciated. Resp: Diminished in the lower bases, no rhonchi, rales, wheez
[2023-12-20 10:43] VITALS: BP 117/86; PULSE 73; RESP 16; TEMP 36.6; O2SAT 97
[2023-12-20 10:49] VITALS: BP 117/86; PULSE 73; RESP 16; TEMP 36.6; O2SAT 97
== END 2023-12-20 11:25 | disposition home or self-care (01) ==
PROVIDERS: Emergency Provider Nurse Practitioner Family; PCP Family Medicine Adolescent Medicine
DX: J02.0 Streptococcal pharyngitis (principal); J18.9 Pneumonia, unspecified organism; Z20.822 Contact with and (suspected) exposure to COVID-19; F41.9 Anxiety disorder, unspecified; F32.A Depression, unspecified; E11.9 Type 2 diabetes mellitus without complications; Z79.84 Long term (current) use of oral hypoglycemic drugs; I10 Essential (primary) hypertension; F79 Unspecified intellectual disabilities
CPT/HCPCS: 71046; 87426; 87804; 87880; 99213; G0463

== ENCOUNTER 2024-04-11 13:15 | Emergency (ER) | payer MEDICARE, MEDICAID, SELFPAY ==
--- NOTE | ~2024-04-11 | XR_ITS ---
EXAMINATION: XR chest 2V DATE: 04/11/2024 13:51 INDICATION: Coarse lower lung sounds. Cough. TECHNIQUE: Frontal and lateral views of the chest were obtained. COMPARISON: Chest 2 views 12/20/2023, CT abdomen and pelvis 02/28/2021 FINDINGS: There is no pneumonia, pleural effusion, or pneumothorax. The heart size is normal. IMPRESSION: 1. No acute cardiopulmonary disease. Reviewed, dictated and finalized at location A.
[2024-04-11 13:25] VITALS: BP 127/88; PULSE 69; RESP 14; TEMP 36.2; O2SAT 99
--- NOTE | 2024-04-11 13:33 | ED.URI ---
HPI - URI/Sore Throat General Chief Complaint: Upper Respiratory Infection Stated Complaint: COUGH/CONGESTION Time Seen by Provider: 04/11/24 13:33 Source: patient, RN notes reviewed and old records reviewed Mode of arrival: ambulatory Limitations: no limitations History of Present Illness HPI Narrative: 39-year-old male to Express Care for sinus congestion, headache, productive cough for 2 weeks. Patient endorses history pneumonia earlier this year. Patient states that he has tried various [id number] medications without much relief. Patient denies chest pain, shortness of breath, ear pain, GI complaints. Patient able to tolerate fluids by mouth. Respirations even and nonlabored. No signs of acute distress. Related Data Home Medications Medication Instructions Recorded Confirmed clonazepam 1 mg tablet 1 mg PO BID 09/27/19 04/11/24 quetiapine 200 mg tablet (Seroquel) 200 mg PO TID 07/27/22 04/11/24 lamotrigine 150 mg tablet 150 mg PO DAILY 02/05/23 04/11/24 montelukast 10 mg tablet 10 mg PO DAILY 08/16/23 04/11/24 (Singulair) Allergies Allergy/AdvReac Type Severity Reaction Status Date / Time chlorpheniramine Allergy Unknown Other Verified 04/11/24 13:25 naproxen Allergy Unknown Nose Bleed Verified 04/11/24 13:25 phenylephrine Allergy Unknown Other Verified 04/11/24 13:25 scopolamine Allergy Unknown Other Verified 04/11/24 13:25 ANTICHOLINERGICS,OTHER Allergy Unknown Other Uncoded 04/11/24 13:25 Review of Systems Review of Systems: All systems reviewed & are unremarkable except as noted in HPI and below Constitutional: Constitutional: Reports as per HPI and Reports headache(s) Eyes: Eyes: Reports no additional eye complaints ENT: Reports as per HPI and Reports nasal congestion Cardiovascular: Cardiovascular: Reports no additional cardiovascular complaints, Denies chest pain and Denies dyspnea Respiratory: Respiratory: Reports as per HPI, Reports cough and Denies dyspnea Musculoskeletal: Musculoskeletal: Reports no additional musculoskeletal complaints Neurologic: Reports system reviewed and no additional complaints, except as documented Psychiatric: Psychiatric: Reports no additional psychiatric complaints PMFSH Past Medical History Medical History ADHD Anxiety and depression Diabetes type 2, controlled Eczema History of arm fracture left distal radius 04/1990 History of chickenpox 04/1990 HTN (hypertension) Mentally challenged Migraine headache Reflux gastritis Surgical History Surgical History History of tonsillectomy (2007) Family History Family History Other Diabetes mellitus Heart disease Hypertension Social History Social History Smoking status: Never smoker Second hand tobacco smoke exposure: No Alcohol intake: never Substance use: never Substance use type: does not use Lack of Transportation: No Lack of Food: Never True Current Housing: I Have Housing Concerned About Future Housing: No Difficulty Paying Gas/Electric Bills: No Difficulty Paying for Meds: No Currently Unemployed: No Education: High School Diploma/GED Difficulty w/ Childcare or Family Care: No Living arrangements: with family Occupation/Education: other Gender identity (if verbalized by the patient): Male Comments At the time of my signature, I reviewed and agree with the nursing past medical, surgical, social, and family history. There is no relevant family history pertinent to the patient complaint. Exam Const: General: cooperative, no acute distress, alert, tired appearing, uncomfortable and well nourished Nutritional Appearance: well nourished Orientation/consciousness: patient oriented x3 Limitations: no limitatio
== END 2024-04-11 14:15 | disposition home or self-care (01) ==
PROVIDERS: Emergency Provider Nurse Practitioner Family; PCP Family Medicine Adolescent Medicine
DX: J01.90 Acute sinusitis, unspecified (principal); E11.9 Type 2 diabetes mellitus without complications; I10 Essential (primary) hypertension; F41.9 Anxiety disorder, unspecified; F32.A Depression, unspecified
CPT/HCPCS: 71046; 99213; G0463

== ENCOUNTER 2024-06-09 11:03 | Emergency (ER) | payer MEDICARE, MEDICAID, SELFPAY ==
[2024-06-09 11:12] VITALS: BP 112/74; PULSE 71; RESP 16; TEMP 35.8; O2SAT 99
--- NOTE | 2024-06-09 11:38 | ED.SKABFB ---
HPI - Skin/Abscess/Foreign Bdy General Chief complaint: Skin/Abscess/Foreign Body Stated complaint: INSECT BITE Time Seen by Provider: 06/09/24 11:41 Source: patient, RN notes reviewed and old records reviewed Mode of arrival: ambulatory Limitations: no limitations History of Present Illness HPI narrative: patient presents with complaints of right arm redness and swelling. He reports that he was stung by a flying insect, he is unsure whether it was a wasp or a bee, 2 days ago. Reports that a stinger was left in him, he did remove this. He has been taking Benadryl daily since the time of the incident, but awakened this morning to find redness, swelling, warmth to the arm, moving upward. He denies other injury and trauma. He denies any fever, chills, sweats. He voices no other concerns or complaints right now Related Data Home Medications Medication Instructions Recorded Confirmed clonazepam 1 mg tablet 1 mg PO BID 09/27/19 06/09/24 quetiapine 200 mg tablet (Seroquel) 200 mg PO TID 07/27/22 06/09/24 lamotrigine 150 mg tablet 150 mg PO DAILY 02/05/23 06/09/24 Allergies Allergy/AdvReac Type Severity Reaction Status Date / Time chlorpheniramine Allergy Unknown Other Verified 06/09/24 11:37 naproxen Allergy Unknown Nose Bleed Verified 06/09/24 11:37 phenylephrine Allergy Unknown Other Verified 06/09/24 11:37 scopolamine Allergy Unknown Other Verified 06/09/24 11:37 ANTICHOLINERGICS,OTHER Allergy Unknown Other Uncoded 06/09/24 11:37 Review of Systems Review of Systems: All systems reviewed & are unremarkable except as noted in HPI and below Constitutional: Constitutional: Reports as per HPI and Reports no additional constitutional complaints ENT: Reports system reviewed and no additional complaints, except as documented Cardiovascular: Cardiovascular: Reports no additional cardiovascular complaints Respiratory: Respiratory: Reports no additional respiratory complaints Gastrointestinal: Gastrointestinal: Reports no additional gastrointestinal complaints Musculoskeletal: Musculoskeletal: Reports as per HPI, Denies deformity, Denies arthralgias and Denies limited range of motion Integumentary/Breasts: Skin/Breast: Reports change in pigmentation PMFSH Past Medical History Medical History ADHD Anxiety and depression Diabetes type 2, controlled Eczema History of arm fracture left distal radius 04/1990 History of chickenpox 04/1990 HTN (hypertension) Mentally challenged Migraine headache Reflux gastritis Surgical History Surgical History History of tonsillectomy (2007) Family History Family History Other Diabetes mellitus Heart disease Hypertension Social History Social History Smoking status: Never smoker Second hand tobacco smoke exposure: No Alcohol intake: never Substance use: never Substance use type: does not use Lack of Transportation: No Lack of Food: Never True Current Housing: I Have Housing Concerned About Future Housing: No Difficulty Paying Gas/Electric Bills: No Difficulty Paying for Meds: No Currently Unemployed: No Education: High School Diploma/GED Difficulty w/ Childcare or Family Care: No Living arrangements: with family Occupation/Education: other Gender identity (if verbalized by the patient): Male Comments At the time of my signature, I reviewed and agree with the nursing past medical, surgical, social, and family history. There is no relevant family history pertinent to the patient complaint. Exam Const: General: cooperative, no acute distress, alert and awake Orientation/consciousness: oriented to person, oriented to place and oriented to time HENMT: Head: normal to inspection Resp: Effort & Inspection
== END 2024-06-09 11:47 | disposition home or self-care (01) ==
PROVIDERS: Emergency Provider Nurse Practitioner Family; PCP Family Medicine Adolescent Medicine
DX: L03.113 Cellulitis of right upper limb (principal); E11.9 Type 2 diabetes mellitus without complications; I10 Essential (primary) hypertension; F99 Mental disorder, not otherwise specified; F41.9 Anxiety disorder, unspecified; F32.A Depression, unspecified
CPT/HCPCS: 99213; G0463

== ENCOUNTER 2024-06-12 08:45 | Outpatient (CLI) | payer MEDICARE, MEDICAID, SELFPAY ==
[2024-06-12 09:16] LABS: Hematocrit 46.4 % (42.0-52.0); Hemoglobin 15.5 g/dL (14.0-18.0); Mean Corpuscular HGB Conc 33.4 g/dl (32-36); Mean Corpuscular Hemoglobin 30.4 pg (26-34); Mean Platelet Volume 9.7 fl (7.4-10.4); Platelet Count Result 168 k/mm3 (150-375); Red Cell Distribution Width 12.5 % (11.5-14.5)
[2024-06-12 09:29] LABS: Alanine Aminotransferase 30 U/L (6-50); Albumin Level 4.5 g/dL (3.5-5.1); Alkaline Phosphatase 105 U/L (38-126); Anion Gap 11 mmol/L (4-12); Aspartate Amino Transferase 24 U/L (17-59); Bilirubin,Total 1.3 mg/dL (0.2-1.3); Blood Urea Nitrogen 23 mg/dL (9-20); Calcium 8.9 mg/dL (8.4-10.2); Carbon Dioxide 26 mmol/L (22-30); Chloride 102 mmol/L (98-107); Cholesterol 125 mg/dL (0-200); Estimated Glomerular Filt Rate > 60; Glucose 173 mg/dL (65-110); HDL Direct 35 mg/dL; Potassium 3.9 mmol/L (3.4-5.0); Sodium 139 mmol/L (137-145); Triglycerides 179 mg/dL (<150)
[2024-06-12 09:40] LABS: LDL Cholesterol Direct 63 mg/dL
[2024-06-12 09:44] LABS: Creatinine Urine 196.6 mg/dL
[2024-06-12 09:49] LABS: MALB Creatinine Ratio < 3.1 mg/g (0-30); Microalbumin Urine Random < 6.0 mg/L (0-16.7)
[2024-06-12 10:19] LABS: Hemoglobin A1C 7.6 % (<5.7)
== END 2024-06-12 08:46 | disposition home or self-care (01) ==
PROVIDERS: PCP Family Medicine Adolescent Medicine; Visit Provider Nurse Practitioner Family
DX: E11.9 Type 2 diabetes mellitus without complications (principal); E78.01 Familial hypercholesterolemia; G40.409 Other generalized epilepsy and epileptic syndromes, not intractable, without status epilepticus; G43.909 Migraine, unspecified, not intractable, without status migrainosus; I10 Essential (primary) hypertension
CPT/HCPCS: 36415; 80053; 80061; 82043; 83036; 84443; 85027

== ENCOUNTER 2024-06-26 19:44 | Emergency (ER) | payer MEDICARE, MEDICAID, SELFPAY ==
--- NOTE | ~2024-06-26 | CT_ITS ---
Non-contrast CT scan of the Abdomen and Pelvis Clinical indication: Left flank pain, hematuria Technique: 2.5 mm axial scans were obtained through the abdomen and pelvis without intravenous or or al contrast. Dose reduction technique was used on this scan by utilizing automated exposure control a nd iterative reconstruction technique. The dose-length product (DLP) was 1003.56 mGy-cm. COMPARISON: 02/28/2021 Findings: Images through the lung bases reveal no abnormalities. There is a 3 mm stone which is either at the left UVJ, with just within the urinary bladder. No left hydroureteronephrosis. There is a 2 mm nonobstructing right renal stone. No right ureteral stone or r ight hydronephrosis. The liver, spleen, pancreas, gallbladder, and adrenals appear normal. There is no aortic aneurysm. There is no evidence of bowel obstruction. Normal appendix. Images through the pelvis were performed. There is no evidence of ascites or lymphadenopathy. Urinary bladder otherwise unremarkable. No pelvic mass seen. Impression: 3 mm stone which is either at the left UVJ, or else just within the urinary bladder. No significant l eft hydronephrosis. 2 mm nonobstructing right renal stone. Reviewed, dictated and finalized at location . Impression: 3 mm stone which is either at the left UVJ, or else just within the urinary brandon dder. No significant left hydronephrosis. 2 mm nonobstructing right renal stone.
[2024-06-26 19:48] VITALS: BP 125/78; PULSE 91; RESP 16; TEMP 36.7; O2SAT 100
[2024-06-26 20:21] LABS: Basophils Percent Auto 0.5 % (0.2-1.2); Eosinophils Percent Auto 0.5 % (0-4.4); Hematocrit 47.9 % (42.0-52.0); Hemoglobin 15.7 g/dL (14.0-18.0); Immature Granulocyte Absolute 0.02 K/mm3 (0.00-0.031); Immature Granulocyte Percent A 0.3 % (0-0.5); Lymphocytes Absolute Auto 2.08 K/mm3 (0.9-3.2); Lymphocytes Percent Auto 26.4 % (18.3-44.2); Mean Corpuscular HGB Conc 32.8 g/dl (32-36); Mean Corpuscular Hemoglobin 29.9 pg (26-34); Mean Corpuscular Volume 91.2 fl (80-100); Mean Platelet Volume 9.4 fl (7.4-10.4); Monocytes Absolute Auto 0.6 K/mm3 (0.1-0.6); Neutrophils Absolute Auto 5.2 K/mm3 (1.3-6.7); Neutrophils Percent Auto 65.3 % (45.5-73.1); Platelet Count Result 227 k/mm3 (150-375); Red Blood Count 5.25 M/mm3 (4.6-6.20); Red Cell Distribution Width 12.2 % (11.5-14.5); White Blood Count 7.9 K/mm3 (4.5-10.0)
[2024-06-26 20:32] LABS: Alanine Aminotransferase 43 U/L (6-50); Albumin Level 5.1 g/dL (3.5-5.1); Alkaline Phosphatase 117 U/L (38-126); Anion Gap 14 mmol/L (4-12); Aspartate Amino Transferase 35 U/L (17-59); Bilirubin,Total 1.7 mg/dL (0.2-1.3); Blood Urea Nitrogen 25 mg/dL (9-20); Carbon Dioxide 26 mmol/L (22-30); Chloride 99 mmol/L (98-107); Estimated CRCL calculation 58 ml/min; Estimated Glomerular Filt Rate 37; Glucose 173 mg/dL (65-110); Lipase 160 U/L (23-300); Potassium 4.8 mmol/L (3.4-5.0); Sodium 139 mmol/L (137-145)
[2024-06-26 21:10] LABS: Add Urine Microscopic? YES; Appearance Urine Turbid (Clear); Bacteria Urine None Seen /hpf; Bilirubin Urine 1+ (Negative); Blood Urine 3+ (Negative); Color Urine Dark Yellow (Yellow); Glucose Urine UA Negative (Negative); Ketones Urine Trace mg/dL (Negative); Leukocyte Esterase Ur 1+ LEU/UL (Negative); Mucus Urine Present /lpf; Need Manual Microscopic Reviewed; Nitrate Urine Negative (Negative); Non Pathogenic Casts >20; Protein Urine 1+ mg/dL (Negative); RBC Urine >100 /hpf (0-2); Specific Grav Ur 1.024 (1.001-1.035); Squamous Epithelial Cell Urine None Seen /hpf (Few)
--- NOTE | 2024-06-27 02:12 | ED.GENADULT ---
HPI - General Adult General Chief complaint: Urogenital-Male Stated complaint: hematuria Time Seen by Provider: 06/27/24 02:07 Source: patient Mode of arrival: ambulatory Limitations: no limitations History of Present Illness HPI narrative: This is a 39-year-old male With PMH of DM type 2 who presents to the ED for chief complaint of left flank pain beginning around 1400 today. Reports that shortly after he saw some blood in his urine. States the pain radiates from the lower left abdomen into the left flank. States it was difficult to urinate. denies N/ V/ D, fevers, chills, chest pain, cough. Related Data Home Medications Medication Instructions Recorded Confirmed clonazepam 1 mg tablet 1 mg PO BID 09/27/19 06/09/24 quetiapine 200 mg tablet (Seroquel) 200 mg PO TID 07/27/22 06/09/24 lamotrigine 150 mg tablet 150 mg PO DAILY 02/05/23 06/09/24 Allergies Allergy/AdvReac Type Severity Reaction Status Date / Time chlorpheniramine Allergy Unknown Other Verified 06/27/24 02:42 naproxen Allergy Unknown Nose Bleed Verified 06/27/24 02:42 phenylephrine Allergy Unknown Other Verified 06/27/24 02:42 scopolamine Allergy Unknown Other Verified 06/27/24 02:42 ANTICHOLINERGICS,OTHER Allergy Unknown Other Uncoded 06/27/24 02:42 Review of Systems Review of Systems: All systems as dictated in HPI [facility] Past Medical History Medical History ADHD Anxiety and depression Diabetes type 2, controlled Eczema History of arm fracture left distal radius 04/1990 History of chickenpox 04/1990 HTN (hypertension) Mentally challenged Migraine headache Reflux gastritis Surgical History Surgical History History of tonsillectomy (2007) Family History Family History Other Diabetes mellitus Heart disease Hypertension Social History Social History Smoking status: Never smoker Second hand tobacco smoke exposure: No Alcohol intake: never Substance use: never Substance use type: does not use Lack of Transportation: No Lack of Food: Never True Current Housing: I Have Housing Concerned About Future Housing: No Difficulty Paying Gas/Electric Bills: No Difficulty Paying for Meds: No Currently Unemployed: No Education: High School Diploma/GED Difficulty w/ Childcare or Family Care: No Living arrangements: with family Occupation/Education: other Gender identity (if verbalized by the patient): Male Exam Narrative: GENERAL: Well-appearing, well-nourished, and in no acute distress. HEAD: Normocephalic, atraumatic. EYES: PERRLA and EOMI. ENT: Nares clear, no rhinorrhea or epistaxis. Mucous membranes moist. Oropharynx without tonsillar hypertrophy exudate or other lesions. NECK: Supple. No adenopathy or masses. CHEST: No respiratory distress. Clear to auscultation. No wheezes rales or rhonchi HEART: Regular rate and rhythm. No murmur heard. Normal peripheral pulses. ABDOMEN: Soft, nontender, nondistended, normal active bowel sounds. MSK: Normal range of motion. No edema. SKIN: Warm, dry, no rash. NEURO: Alert and oriented x4. No focal deficits. PSYCH: Normal mood and affect. Course Vital Signs Vital signs: Vital Signs Temperature 98.0 F 06/26/24 19:48 Pulse Rate 91 06/26/24 19:48 Respiratory Rate 16 06/26/24 19:48 Blood Pressure 125/78 06/26/24 19:48 Pulse Oximetry 100 06/26/24 19:48 Oxygen Delivery Room Air 06/26/24 19:48 Temperature 98.0 F 06/26/24 19:48 Pulse Rate 70 06/27/24 02:41 Respiratory Rate 18 06/27/24 02:41 Blood Pressure 126/86 06/27/24 02:41 Pulse Oximetry 100 06/27/24 02:41 Oxygen Delivery Room Air 06/26/24 19:48 Medical Decision Making MDM Narrative Medical decision making narrat
[2024-06-27 02:41] VITALS: BP 126/86; PULSE 70; RESP 18; O2SAT 100
[2024-06-27] MEDS: MORPHINE SULFATE (*CRX) 4 MG/ML INJ IV PUSH (02:51)
[2024-06-27] MEDS: ONDANSETRON INJ 4 MG/2 ML VIAL IV PUSH (02:51)
== END 2024-06-27 03:59 | disposition home or self-care (01) ==
PROVIDERS: Emergency Medicine; Emergency Provider Physician Assistant; PCP Family Medicine Adolescent Medicine
DX: N13.2 Hydronephrosis with renal and ureteral calculous obstruction (principal); I10 Essential (primary) hypertension; E11.9 Type 2 diabetes mellitus without complications; F41.9 Anxiety disorder, unspecified; F32.A Depression, unspecified; F90.9 Attention-deficit hyperactivity disorder, unspecified type; Z79.84 Long term (current) use of oral hypoglycemic drugs; Z79.899 Other long term (current) drug therapy
CPT/HCPCS: 36415; 74176; 80053; 81001; 83690; 85025; 87086; 96374; 96375; 99284; J2270; J2405

== ENCOUNTER 2024-07-17 12:59 | Outpatient (CLI) | payer MEDICARE, MEDICAID, SELFPAY ==
--- NOTE | ~2024-07-17 | CT_ITS ---
EXAMINATION: CT abdomen pelvis wo con DATE: 07/17/2024 13:42 INDICATION: Calculus of kidney. TECHNIQUE: Computed tomography (CT) of the abdomen and pelvis was performed without intravenous contr ast. Automated exposure control and iterative reconstruction technique were employed. The dose-length product was 543.43 mGy-cm. COMPARISON: CT abdomen and pelvis 06/27/24 FINDINGS: The visualized portions of lung bases demonstrate mild atelectasis. No pleural effusion. Th e heart size is normal. There is a trace pericardial effusion. There is mild bilateral gynecomastia. The liver, gallbladder, spleen, pancreas, and adrenal glands are normal. There is cortical thinning o f the kidneys. There is a 2 mm stone in right kidney. There are no dilated loops of bowel. The append ix is normal. There are no pathologically enlarged lymph nodes. There is no free intraperitoneal flui d. There is mild thoracic and lumbar spondylosis. IMPRESSION: 1. 2 mm nonobstructing right kidney stone. Reviewed, dictated and finalized at location A.
[2024-07-17 14:06] LABS: Uric Acid 5.1 mg/dL (3.5-8.5)
== END 2024-07-17 13:00 | disposition home or self-care (01) ==
LOC: ANHIMG 13:01
PROVIDERS: PCP Family Medicine Adolescent Medicine; Visit Provider Family Medicine Adolescent Medicine
DX: N20.0 Calculus of kidney (principal)
CPT/HCPCS: 36415; 74176; 84550

== ENCOUNTER 2024-09-28 13:32 | Emergency (ER) | payer MEDICARE, MEDICAID, SELFPAY ==
--- NOTE | ~2024-09-28 | XR_ITS ---
EXAMINATION: XR chest 2V 09/28/2024 15:02 INDICATION: Cough PROCEDURE: View chest COMPARISON: Comparison to multiple prior studies sequentially, with oldest reviewed study dated 09/21. FINDINGS: The lungs are clear. The cardiomediastinal silhouette is within normal limits. There are no pleural effusions. There is no pneumothorax suspected. IMPRESSION: 1: NO ACUTE CARDIOPULMONARY DISEASE. Reviewed, dictated and finalized at location B. [employer]
[2024-09-28 14:25] VITALS: BP 134/99; PULSE 69; RESP 17; TEMP 37; O2SAT 98
--- NOTE | 2024-09-28 14:38 | ED_ITS ---
HPI - URI/Sore Throat General Chief Complaint: Upper Respiratory Infection Stated Complaint: nasal congestion Time Seen by Provider: 09/28/24 14:39 Source: patient and RN notes reviewed Mode of arrival: ambulatory Limitations: no limitations History of Present Illness HPI Narrative: 39-year-old male presents with concern for nasal congestion, cough for 5 days. He has concern for pneumonia. He denies fever, body aches, chills, sweats. Reports postnasal drainage and nasal congestion. Reports she has tried [id number] cold medicines without relief MD elicited complaint: cough and nasal congestion Related Data Home Medications Medication Instructions Recorded Confirmed clonazepam 1 mg tablet 1 mg PO BID 09/27/19 07/11/24 quetiapine 200 mg tablet (Seroquel) 200 mg PO TID 07/27/22 07/11/24 lamotrigine 150 mg tablet 150 mg PO DAILY 02/05/23 07/11/24 Allergies Allergy/AdvReac Type Severity Reaction Status Date / Time chlorpheniramine Allergy Unknown Other Verified 09/28/24 14:59 naproxen Allergy Unknown Nose Bleed Verified 09/28/24 14:59 phenylephrine Allergy Unknown Other Verified 09/28/24 14:59 scopolamine Allergy Unknown Other Verified 09/28/24 14:59 ANTICHOLINERGICS,OTHER Allergy Unknown Other Uncoded 09/28/24 14:59 Review of Systems Review of Systems: CONSTITUTIONAL: Reports malaise, chills, sweats. Denies fever. EYES: Denies visual changes, redness, or discharge. ENT: Reports rhinorrhea, congestion. Denies sinus pain, otalgia and sore throat. CARDIOVASCULAR: Denies chest pain, palpitations, or edema. RESPIRATORY: Reports cough. Denies dyspnea. GASTROINTESTINAL: Denies abdominal pain, nausea, vomiting, diarrhea SKIN: Denies rash or itching. MUSCULOSKELETAL: Reports myalgia. NEUROLOGIC: Reports headache. All systems reviewed & are unremarkable except as noted in HPI and below PMFSH Past Medical History Medical History (Updated 09/28/24 @ 15:17 by Ramona Macario NP) ADHD Anxiety and depression Diabetes type 2, controlled Eczema History of arm fracture left distal radius 04/1990 History of chickenpox 04/1990 History of urinary stone (06/2024) Left ureteral stone HTN (hypertension) Mentally challenged Migraine headache Reflux gastritis Surgical History Surgical History History of tonsillectomy (2008) Family History Family History Other Diabetes mellitus Heart disease Hypertension Social History Social History Smoking status: Never smoker Second hand tobacco smoke exposure: No Alcohol intake: never Substance use: never Substance use type: does not use Lack of Transportation: No Lack of Food: Never True Current Housing: I Have Housing Concerned About Future Housing: No Difficulty Paying Gas/Electric Bills: No Difficulty Paying for Meds: No Currently Unemployed: No Education: High School Diploma/GED Difficulty w/ Childcare or Family Care: No Living arrangements: with family Occupation/Education: other Gender identity (if verbalized by the patient): Male Comments At time of signature, agree with nursing past medical, surgical, social and family history. There is no relevant family history pertinent to the presenting complaint Exam Narrative: GENERAL: Well-appearing, well-nourished, and in no acute distress. HEAD: Normocephalic EYES: PERRLA, conjunctivae clear ENT: Nares clear. Mucous membranes moist. TM pearly riojas with dull light reflex bilaterally; no tragal tenderness. Oropharynx not erythematous without lesions. Tonsils not enlarged and without exudate, no drooling, no hoarseness, no trismus, uvula midline. NECK: Supple. No lymphadenopathy CHEST: Clear to auscultation, breath sounds equal. No wheezing, rhonchi, rales, or stridor. No respiratory distress, speaks in full sentences. HEART: Regular rate and rhythm. No murmur heard. SKIN: Warm, dry, no rash. NEURO: Alert and oriented x3. PSYCH: Normal mood and affect Course Course Emergency Course: Patient is aware of diagnosis, understands and agrees to treatment plan. Anticipatory guidance given. Patient agrees to follow-up as directed and is aware of reasons to seek care at the emergency department. Portions of this record may have been created with voice recognition software Level of Care: Express Care Visit Vital Signs Vital signs: Vital Signs Temperature 98.6 F 09/28/24 14:25 Pulse Rate 69 09/28/24 14:25 Respiratory Rate 17 09/28/24 14:25 Blood Pressure 134/99 H 09/28/24 14:25 Pulse Oximetry 98 09/28/24 14:25 Temperature 98.6 F 09/28/24 14:25 Pulse Rate 69 09/28/24 14:25 Respiratory Rate 17 09/28/24 14:25 Blood Pressure 134/99 H 09/28/24 14:25 Pulse Oximetry 98 09/28/24 14:25 Reviewed. MDM - URI/Sore Throat MDM Narrative Medical decision making narrative: Differential diagnosis considered: Estrada virus, strep pharyngitis, allergic rhinitis, upper respiratory tract infection, sinusitis, rhinosinusitis, nasopharyngitis. viral pharyngitis, otitis media, otitis externa, pneumonia, bronchitis, viral cough syndrome, viral syndrome, and influenza. Exam findings show no acute concerns or changes; patient is non-toxic appearing and is in no distress. Patient is appropriate for outpatient treatment and follow-up. Lab Data Attestation: I reviewed the patient's lab results. Critical Care Time Critical Care Time Critical Care Time: No Discharge Plan Discharge Clinical Impression: Upper respiratory infection Patient Disposition: Home, Self-Care Condition: Stable Instructions: Upper Respiratory Infection (ED) Additional Instructions: Your chest x-ray is normal, you do not have pneumonia Viral illness may last between 7-21 days; antibiotics do not cure viral illness and are NOT recommended at this time. Recommend antihistamine such as Benadryl at night time and Zyrtec or [place]ow during the day Also, recommend symptomatic treatment includes: rest, fluids, and increase humidity of the air at home. Recommend Acetaminophen as directed on the bottle to reduce fever, pain, headache. Avoid smoking/second-hand smoke. Please schedule a follow-up visit with your personal physician for further evaluation and treatment within 3-5days. Including recheck and discussion of your blood pressure. If your symptoms persist, change or worsen significantly before you can contact your personal physician then please, without delay, go to the emergency department for further evaluation. Prescriptions: New dextromethorphan-guaifenesin [Mucinex DM] 60-1,200 mg tablet extended release 12 hr 1 tablet PO Q12H Qty: 12 0RF No Action clonazepam 1 mg tablet 1 mg PO BID quetiapine [Seroquel] 200 mg tablet 200 mg PO TID lamotrigine 150 mg tablet 150 mg PO DAILY (DME) blood-glucose meter [Accu-Chek Merary Plus Meter] [facility] [place] See Rx Instructions .Route Qty: 1 0RF Rx Instructions: two times daily montelukast [Singulair] 10 mg tablet 10 mg PO DAILY Qty: 90 3RF hydrocodone-acetaminophen 5-325 mg tablet 1 tablet PO Q8H PRN (Reason: pain) Qty: 12 0RF ondansetron 4 mg tablet,disintegrating 4 mg PO Q8H PRN (Reason: nausea and vomiting) Qty: 10 0RF (DME) Accu-Chek Guide test strips Strip See Rx Instructions .ROUTE .COMPLEX Qty: 100 0RF Dose Instruction: USE TO TEST BLOOD SUGAR TWICE DAILY Rx Instructions: USE TO TEST BLOOD SUGAR TWICE DAILY (DME) lancets [Accu-Chek Softclix Lancets] [facility] [place] See Rx Instructions .ROUTE .COMPLEX Qty: 100 12RF Dose Instruction: USE TO TEST BLOOD SUGAR TWICE DAILY Rx Instructions: USE TO TEST BLOOD SUGAR TWICE DAILY propranolol 160 mg capsule,extended release 24 hr 160 mg PO DAILY Qty: 90 3RF pantoprazole 40 mg tablet,delayed release (DR/EC) See Rx Instructions .ROUTE .COMPLEX Qty: 180 2RF Dose Instruction: TAKE 1 TABLET BY MOUTH TWICE DAILY Rx Instructions: TAKE 1 TABLET BY MOUTH TWICE DAILY glimepiride 2 mg tablet See Rx Instructions .ROUTE .COMPLEX Qty: 90 1RF Dose Instruction: TAKE 1 TABLET BY MOUTH EVERY MORNING WITH BREAKFAST Rx Instructions: TAKE 1 TABLET BY MOUTH EVERY MORNING WITH BREAKFAST ezetimibe 10 mg tablet See Rx Instructions .ROUTE .COMPLEX Qty: 90 1RF Dose Instruction: TAKE 1 TABLET BY MOUTH DAILY Rx Instructions: TAKE 1 TABLET BY MOUTH DAILY metformin 500 mg tablet extended release 24 hr 1,000 mg PO BID Qty: 360 2RF eletriptan 40 mg tablet See Rx Instructions PO .COMPLEX Qty: 14 2RF Rx Instructions: take 1 tab at onset of headache; if no relief, may repeat 1 tab after at least 2 hrs; max = 2 tabs/24 hrs PO nortriptyline 25 mg capsule 25 mg PO QHS Qty: 90 2RF tamsulosin [Flomax] 0.4 mg capsule 0.4 mg PO DAILY Qty: 20 0RF rosuvastatin 20 mg tablet 20 mg PO DAILY Qty: 90 2RF lisinopril 20 mg tablet 20 mg PO DAILY Qty: 90 2RF Follow-up/Referrals: Earnest Santos MD [Primary Care Provider] - Time of Disposition: 15:19
== END 2024-09-28 15:25 | disposition home or self-care (01) ==
PROVIDERS: Emergency Provider Nurse Practitioner; PCP Family Medicine Adolescent Medicine
DX: J06.9 Acute upper respiratory infection, unspecified (principal); E11.9 Type 2 diabetes mellitus without complications; I10 Essential (primary) hypertension; F41.9 Anxiety disorder, unspecified; F79 Unspecified intellectual disabilities
CPT/HCPCS: 71046; 99213; G0463

== ENCOUNTER 2024-10-02 09:23 | Outpatient (CLI) | payer MEDICARE, MEDICAID, SELFPAY ==
[2024-10-02 10:02] LABS: Basophils Percent Auto 0.7 % (0.2-1.2); Eosinophils Absolute Auto 0.1 K/mm3 (0-0.3); Eosinophils Percent Auto 1.6 % (0-4.4); Hematocrit 43.8 % (42.0-52.0); Immature Granulocyte Absolute 0.02 K/mm3 (0.00-0.031); Immature Granulocyte Percent A 0.4 % (0-0.5); Lymphocytes Absolute Auto 2.07 K/mm3 (0.9-3.2); Lymphocytes Percent Auto 36.6 % (18.3-44.2); Mean Corpuscular HGB Conc 34.2 g/dl (32-36); Mean Corpuscular Hemoglobin 30.4 pg (26-34); Mean Corpuscular Volume 88.8 fl (80-100); Mean Platelet Volume 9.4 fl (7.4-10.4); Monocytes Absolute Auto 0.5 K/mm3 (0.1-0.6); Monocytes Percent Auto 8.1 % (2.6-8.5); Neutrophils Percent Auto 52.6 % (45.5-73.1); Platelet Count Result 164 k/mm3 (150-375); Red Blood Count 4.93 M/mm3 (4.6-6.20); Red Cell Distribution Width 12.7 % (11.5-14.5); White Blood Count 5.7 K/mm3 (4.5-10.0)
[2024-10-02 10:05] LABS: Alanine Aminotransferase 34 U/L (6-50); Albumin Level 4.4 g/dL (3.5-5.1); Alkaline Phosphatase 92 U/L (38-126); Anion Gap 7 mmol/L (4-12); Aspartate Amino Transferase 26 U/L (17-59); Bilirubin,Total 1.5 mg/dL (0.2-1.3); Blood Urea Nitrogen 18 mg/dL (9-20); Calcium 8.7 mg/dL (8.4-10.2); Carbon Dioxide 31 mmol/L (22-30); Chloride 103 mmol/L (98-107); Cholesterol 113 mg/dL (0-200); Estimated Glomerular Filt Rate > 60; Glucose 130 mg/dL (65-110); HDL Direct 36 mg/dL; Potassium 4.2 mmol/L (3.4-5.0); Sodium 141 mmol/L (137-145); Triglycerides 104 mg/dL (<150)
[2024-10-02 10:16] LABS: LDL Cholesterol Direct 53 mg/dL
[2024-10-02 10:24] LABS: Hemoglobin A1C 6.7 % (<5.7)
== END 2024-10-02 09:24 | disposition home or self-care (01) ==
PROVIDERS: PCP Family Medicine Adolescent Medicine
DX: Z79.899 Other long term (current) drug therapy (principal)
CPT/HCPCS: 36415; 80053; 80061; 83036; 84443; 85025

== ENCOUNTER 2024-11-28 14:11 | Emergency (ER) | payer MEDICARE, MEDICAID, SELFPAY ==
--- NOTE | 2024-11-28 14:13 | ED_ITS ---
HPI - URI/Sore Throat General Chief Complaint: Upper Respiratory Infection Stated Complaint: BODY ACHES/SORE THROAT Time Seen by Provider: 11/28/24 14:37 Source: patient and RN notes reviewed Mode of arrival: ambulatory Limitations: no limitations History of Present Illness HPI Narrative: 39-year-old male presents with concern sore throat, body aches, head congestion, cough. Reports symptoms for about 4 days. MD elicited complaint: sore throat Related Data Home Medications ?Medication ?Instructions ?Recorded ?Confirmed ?Last Taken ?Type clonazepam 1 mg tablet 1 mg PO BID 09/27/19 11/28/24 Unknown History quetiapine 200 mg tablet (Seroquel) 200 mg PO TID 07/27/22 11/28/24 Unknown History lamotrigine 150 mg tablet 150 mg PO DAILY 02/05/23 11/28/24 Unknown History Allergies Allergy/AdvReac Type Severity Reaction Status Date / Time chlorpheniramine Allergy Unknown Other Verified 11/28/24 14:18 naproxen Allergy Unknown Nose Bleed Verified 11/28/24 14:18 phenylephrine Allergy Unknown Other Verified 11/28/24 14:18 scopolamine Allergy Unknown Other Verified 11/28/24 14:18 ANTICHOLINERGICS,OTHER Allergy Unknown Other Uncoded 11/28/24 14:18 Review of Systems Review of Systems: CONSTITUTIONAL: Denies malaise, chills, sweats, or fever. EYES: Denies visual changes, redness, or discharge. ENT: Reports rhinorrhea, congestion, and sore throat. CARDIOVASCULAR: Denies chest pain, palpitations, or edema. RESPIRATORY: Reports cough. Denies dyspnea. GASTROINTESTINAL: Denies abdominal pain, nausea, vomiting, diarrhea SKIN: Denies rash or itching. MUSCULOSKELETAL: Reports myalgia. NEUROLOGIC: Denies headache. All systems reviewed & are unremarkable except as noted in HPI and below PMFSH Past Medical History Medical History (Updated 11/28/24 @ 14:45 by Ramona Macario NP) History of urinary stone (06/2024) Left ureteral stone Anxiety and depression History of arm fracture left distal radius 04/1990 History of chickenpox 04/1990 Diabetes type 2, controlled Migraine headache ADHD Eczema Reflux gastritis HTN (hypertension) Mentally challenged Surgical History Surgical History History of tonsillectomy (2007) Family History Family History Other Diabetes mellitus Heart disease Hypertension Social History Social History Smoking status: Never smoker Second hand tobacco smoke exposure: No Alcohol intake: never Substance use: never Substance use type: does not use Lack of Transportation: No Lack of Food: Never True Current Housing: I Have Housing Concerned About Future Housing: No Difficulty Paying Gas/Electric Bills: No Difficulty Paying for Meds: No Currently Unemployed: No Education: High School Diploma/GED Difficulty w/ Childcare or Family Care: No Living arrangements: with family Occupation/Education: other Gender identity (if verbalized by the patient): Male Comments At time of signature, agree with nursing past medical, surgical, social and family history. There is no relevant family history pertinent to the presenting complaint Exam Narrative: GENERAL: Well-appearing, well-nourished, and in no acute distress. HEAD: Normocephalic EYES: PERRLA, conjunctivae clear ENT: Nares clear. Mucous membranes moist. TM pearly riojas with dull light reflex bilaterally; no tragal tenderness. Oropharynx not erythematous without lesions. Tonsils not present, no drooling, no hoarseness, no trismus, uvula midline. NECK: Supple. No lymphadenopathy CHEST: Clear to auscultation, breath sounds equal. No wheezing, rhonchi, rales, or stridor. No respiratory distress, speaks in full sentences. HEART: Regular rate and rhythm. No murmur heard. SKIN: Warm, dry, no rash. NEURO: Alert and oriented x3. PSYCH: Normal mood and affect Course Course Emergency Course: Patient is aware of diagnosis, understands and agrees to treatment plan. Anticipatory guidance given. Patient agrees to follow-up as directed and is aware of reasons to seek care at the emergency department. Portions of this record may have been created with voice recognition software Level of Care: Express Care Visit Vital Signs Vital signs: Reviewed. MDM - URI/Sore Throat MDM Narrative Medical decision making narrative: Differential diagnosis considered: Estrada virus, strep pharyngitis, allergic rhinitis, upper respiratory tract infection, sinusitis, rhinosinusitis, nasopharyngitis. viral pharyngitis, otitis media, otitis externa, pneumonia, bronchitis, viral cough syndrome, viral syndrome, and influenza. Exam findings show no acute concerns or changes; patient is non-toxic appearing and is in no distress. Patient is appropriate for outpatient treatment and follow-up. Lab Data Attestation: I reviewed the patient's lab results. Critical Care Time Critical Care Time Critical Care Time: No Discharge Plan Discharge Clinical Impression: Acute streptococcal pharyngitis Patient Disposition: Home, Self-Care Condition: Stable Instructions: Antibiotic Form, Strep Throat (ED) Additional Instructions: -Take the medication as prescribed. Throw away the toothbrush after 24hours of antibiotic. -Eat and drink things that are easy to swallow, like tea or soup, or popsicles to suck on. -Oral rinses such as: Salt water gargles and/or may use topical anesthetic (eg. Chloraseptic spray) or lozenges to relieve dryness or throat pain). -Take Tylenol and ibuprofen as needed for pain and fever as directed. -Frequent hand washing or hand travel ticketing reviewer is one of the best ways to prevent spread of infection. -Follow up with primary care provider in 2-3 days if condition is not improving; or seek ER visit if you have trouble breathing, cannot drink enough fluids, have muffled voice, difficulty opening your mouth, or severe swelling. Patient Language: Bruneian Prescriptions: New penicillin V potassium 500 mg tablet 500 mg PO Q12H 10 Days Qty: 20 0RF No Action clonazepam 1 mg tablet 1 mg PO BID quetiapine [Seroquel] 200 mg tablet 200 mg PO TID lamotrigine 150 mg tablet 150 mg PO DAILY dextromethorphan-guaifenesin [Mucinex DM] 60-1,200 mg tablet extended release 12 hr 1 tablet PO Q12H Qty: 12 0RF (DME) blood-glucose meter [Accu-Chek Merary Plus Meter] Misc See Rx Instructions .Route Qty: 1 0RF Rx Instructions: two times daily montelukast [Singulair] 10 mg tablet 10 mg PO DAILY Qty: 90 3RF hydrocodone-acetaminophen 5-325 mg tablet 1 tablet PO Q8H PRN (Reason: pain) Qty: 12 0RF (DME) Accu-Chek Guide test strips Strip See Rx Instructions .ROUTE .COMPLEX Qty: 100 0RF Dose Instruction: USE TO TEST BLOOD SUGAR TWICE DAILY Rx Instructions: USE TO TEST BLOOD SUGAR TWICE DAILY (DME) lancets [Accu-[place]k [place]cl[place] Lancets[place] [facility] [place]TE .COMPLEX Qty: 100 12RF Dose Instruction: USE TO TEST BLOOD SUGAR TWICE DAILY Rx Instructions: USE TO TEST BLOOD SUGAR TWICE DAILY propranolol 160 mg capsule,extended release 24 hr 160 mg PO DAILY Qty: 90 3RF metformin 500 mg tablet extended release 24 hr 1,000 mg PO BID Qty: 360 2RF eletriptan 40 mg tablet See Rx Instructions PO .COMPLEX Qty: 14 2RF Rx Instructions: take 1 tab at onset of headache; if no relief, may repeat 1 tab after at least 2 hrs; max = 2 tabs/24 hrs PO nortriptyline 25 mg capsule 25 mg PO QHS Qty: 90 2RF tamsulosin [Flomax] 0.4 mg capsule 0.4 mg PO DAILY Qty: 20 0RF rosuvastatin 20 mg tablet 20 mg PO DAILY Qty: 90 2RF lisinopril 20 mg tablet 20 mg PO DAILY Qty: 90 2RF ezetimibe 10 mg tablet 10 mg PO DAILY Qty: 90 2RF glimepiride 2 mg tablet 2 mg PO DAILY Qty: 90 2RF pantoprazole 40 mg tablet,delayed release (DR/EC) See Rx Instructions .ROUTE .COMPLEX Qty: 180 2RF Dose Instruction: TAKE 1 TABLET BY MOUTH TWICE DAILY Rx Instructions: TAKE 1 TABLET BY MOUTH TWICE DAILY Follow-up/Referrals: Earnest Santos MD [Primary Care Provider] - Time of Disposition: 14:45
[2024-11-28 14:27] VITALS: BP 136/84; PULSE 126; RESP 16; TEMP 36.3; O2SAT 100
[2024-11-28 14:45] LABS: EDCOVIDSCREEN Negative (Negative); EDINFLUASCREEN Negative (Negative); EDINFLUBSCREEN Negative (Negative); EDSTREPNEGPOS1 Negative (Negative)
== END 2024-11-28 14:48 | disposition home or self-care (01) ==
PROVIDERS: Emergency Provider Nurse Practitioner; PCP Family Medicine Adolescent Medicine
DX: J02.0 Streptococcal pharyngitis (principal); I10 Essential (primary) hypertension; Z79.899 Other long term (current) drug therapy; Z20.822 Contact with and (suspected) exposure to COVID-19
CPT/HCPCS: 87426; 87804; 87880; 99213; G0463

== ENCOUNTER 2024-12-22 09:07 | Emergency (ER) | payer MEDICARE, MEDICAID, SELFPAY ==
[2024-12-22 09:18] VITALS: BP 117/87; PULSE 78; RESP 16; TEMP 36.6; O2SAT 100
--- NOTE | 2024-12-22 09:27 | ED.URI ---
HPI - URI/Sore Throat General Chief Complaint: Upper Respiratory Infection Stated Complaint: Flu Symptoms Time Seen by Provider: 12/22/24 09:25 Source: patient Mode of arrival: ambulatory Limitations: no limitations History of Present Illness HPI Narrative: Carlos is a 39-year-old male patient presenting to the clinic today with complaints of flu-like symptoms. He reports he has sore throat, body aches, chills, fatigue, nausea, diarrhea, and burning with urination. Burning with urination is been over the past 3 days. His other symptoms he states has been going on for approximately 2 weeks. He has had influenza A exposure. History of kidney stones. MD elicited complaint: sore throat and nasal congestion Related Data Home Medications ?Medication ?Instructions ?Recorded ?Confirmed ?Last Taken ?Type clonazepam 1 mg tablet 1 mg PO BID 09/27/19 11/28/24 Unknown History quetiapine 200 mg tablet (Seroquel) 200 mg PO TID 07/27/22 11/28/24 Unknown History lamotrigine 150 mg tablet 150 mg PO DAILY 02/05/23 11/28/24 Unknown History clonazepam 0.5 mg tablet mg 12/22/24 Unknown History Allergies Allergy/AdvReac Type Severity Reaction Status Date / Time chlorpheniramine Allergy Unknown Other Verified 12/22/24 09:17 naproxen Allergy Unknown Nose Bleed Verified 12/22/24 09:17 phenylephrine Allergy Unknown Other Verified 12/22/24 09:17 scopolamine Allergy Unknown Other Verified 12/22/24 09:17 ANTICHOLINERGICS,OTHER Allergy Unknown Other Uncoded 12/22/24 09:17 Review of Systems Review of Systems: Pertinent positives per HPI. Patient denies any rash, headache, visual changes, dizziness, shortness of breath, chest pain, palpitations, constipation, abdominal pain. [facility] Past Medical History Medical History History of urinary stone (06/2024) Left ureteral stone Anxiety and depression History of arm fracture left distal radius 04/1990 History of chickenpox 04/1990 Diabetes type 2, controlled Migraine headache ADHD Eczema Reflux gastritis HTN (hypertension) Mentally challenged Surgical History Surgical History History of tonsillectomy (2007) Family History Family History Other Diabetes mellitus Heart disease Hypertension Social History Social History Smoking status: Never smoker Second hand tobacco smoke exposure: No Alcohol intake: never Substance use: never Substance use type: does not use Lack of Transportation: No Lack of Food: Never True Current Housing: I Have Housing Concerned About Future Housing: No Difficulty Paying Gas/Electric Bills: No Difficulty Paying for Meds: No Currently Unemployed: No Education: High School Diploma/GED Difficulty w/ Childcare or Family Care: No Living arrangements: with family Occupation/Education: other Gender identity (if verbalized by the patient): Male Comments At the time of my signature, I reviewed and agree with the nursing past medical, surgical, social, and family history. There is no relevant family history pertinent to the patient complaint. Exam Narrative: General: Well-developed, well nourished, in no apparent distress Head: Normocephalic, atraumatic Eyes: Pupils equally round and reactive to light bilaterally, EOM intact, sclera and conjunctive clear, no discharge, lids normal Ears: TMs intact and clear, ear canals clear, no drainage, grossly hearing normal. Nose: Nares patent, clear nasal discharge, no inflammation, no sinus tenderness. Mouth: Oral pharynx red without lesions or masses, good dentition, MMM. Neck: Supple, trachea midline, no enlargement of anterior or posterior cervical nodes, no thyroid masses or goiter palpable. Cardio: Regular rate and rhythm, s1 and s2 normal, no murmur appreciated. Resp: Clear to auscultation bilaterally, no rhonchi, rales, wheezing or rubs Abdomen: Soft, pliable, bowel sounds present in all quadrants, suprapubic tender to palpation, no organomegly, no CVAT tenderness. Course Course Emergency Course: Portions of this record may have been created with voice recognition software. Level of Care: Express Care Visit Vital Signs Vital signs: Vital Signs Oxygen Delivery Room Air 12/22/24 09:15 Temperature 36.6 C 12/22/24 09:18 Pulse Rate 78 12/22/24 09:18 Respiratory Rate 16 02/01/25 09:18 Blood Pressure 117/87 02/01/25 09:18 Pulse Oximetry 100 12/22/24 09:18 Oxygen Delivery Room Air 12/22/24 09:15 Vital signs reviewed MDM - URI/Sore Throat MDM Narrative Medical decision making narrative: At the time of visit patient is resting comfortably on the exam table. Patient appears to be nontoxic. Labs: COVID, influenza, strep, and urinalysis was performed.. COVID influenza and strep testing was negative. We will send strep for culture. Urinalysis shows trace of ketones, 1+ glucose, and protein 1+. Plan: I suspect patient has viral syndrome/gastroenteritis. Prescription for Zofran was sent to pharmacy. Supportive measures were discussed with the patient and they voiced understanding discharge instructions and agrees to treatment plan. Return precautions reviewed Differential Diagnosis Differential diagnosis: Likely upper respiratory infection, otitis media, sinusitis, viral infection, bronchitis, influenza, pharyngitis and other (UTI) Lab Data Labs: Lab Results 12/22/24 Range/Units 09:36 POC Urine Color Yellow POC Urine Clarity Clear POC Urine pH 5.5 POC Ur Specif [place] 1.025 POC Urine Protein 1+ (Negative) POC Ur Glucose (UA) 1+ (Negative) POC Urine Ketones Trace (Negative) POC Urine Blood Negative (Negative) POC Urine Nitrite Negative (Negative) POC Urine Bilirubin Negative (Negative) POC Urine Urobilinogen 0.2 POC U Leukocyte Esteras Negative (Negative) POC Influenza A Ag Negative (Negative) POC Influenza B Ag Negative (Negative) POC SARS CoV-2 Ag Negative (Negative) POC Grp A Strep Screen Negative (Negative) Discharge Plan Discharge Clinical Impression: Gastroenteritis, Acute viral syndrome Patient Disposition: Home, Self-Care Condition: Stable Instructions: Antibiotic Form, Gastroenteritis (ED), Viral Syndrome (ED) Additional Instructions: COVID, influenza, and strep test were all negative in the clinic today. We will send strep for culture if this comes back positive we will contact you in place you on antibiotics at that time. Urinalysis shows 1+ protein, trace of ketone, and 1+ glucose. We will send urine for culture. Keep a tight control in your blood sugars. Take prescription medications only as prescribed-ondansetron May take Imodium as needed for diarrhea as long as there is no blood in your stool. Increase fluids and stay well hydrated Tylenol/motrin for pain/fever Flonase and OTC antihistamines as directed Vicks vapor rub to open sinuses Sinus rinses for congestion Cepacol spray, cough drops, throat lozenges, warm tea with honey/lemon, gargle salt water to soothe throat BRAT diet for diarrhea Clear liquids x 24 hours then advance as tolerated for nausea/vomiting Go to the ED if you develop a worsening in your condition- high fever not controlled by Tylenol or Motrin, dehydration, weakness, lethargy, shortness of breath, or chest pain. Follow up with your PCP in 3-5 days if symptoms persist. Patient Language: Albanian Prescriptions: New ondansetron 4 mg tablet,disintegrating 4 mg PO Q6H PRN (Reason: nausea and vomiting) 3 Days Qty: 12 0RF No Action clonazepam 1 mg tablet 1 mg PO BID quetiapine [Seroquel] 200 mg tablet 200 mg PO TID clonazepam 0.5 mg tablet lamotrigine 150 mg tablet 150 mg PO DAILY dextromethorphan-guaifenesin [Mucinex DM] 60-1,200 mg tablet extended release 12 hr 1 tablet PO Q12H Qty: 12 0RF (DME) blood-glucose meter [Accu-Chek Merary Plus Meter] [facility] [place] See Rx Instructions .Route Qty: 1 0RF Rx Instructions: two times daily montelukast [Singulair] 10 mg tablet 10 mg PO DAILY Qty: 90 3RF (DME) Accu-Chek Guide test strips Strip See Rx Instructions .ROUTE .COMPLEX Qty: 100 0RF Dose Instruction: USE TO TEST BLOOD SUGAR TWICE DAILY Rx Instructions: USE TO TEST BLOOD SUGAR TWICE DAILY (DME) lancets [Accu-Chek Softclix Lancets] [facility] [place] See Rx Instructions .ROUTE .COMPLEX Qty: 100 12RF Dose Instruction: USE TO TEST BLOOD SUGAR TWICE DAILY Rx Instructions: USE TO TEST BLOOD SUGAR TWICE DAILY propranolol 160 mg capsule,extended release 24 hr 160 mg PO DAILY Qty: 90 3RF metformin 500 mg tablet extended release 24 hr 1,000 mg PO BID Qty: 360 2RF eletriptan 40 mg tablet See Rx Instructions PO .COMPLEX Qty: 14 2RF Rx Instructions: take 1 tab at onset of headache; if no relief, may repeat 1 tab after at least 2 hrs; max = 2 tabs/24 hrs PO nortriptyline 25 mg capsule 25 mg PO QHS Qty: 90 2RF tamsulosin [Flomax] 0.4 mg capsule 0.4 mg PO DAILY Qty: 20 0RF rosuvastatin 20 mg tablet 20 mg PO DAILY Qty: 90 2RF lisinopril 20 mg tablet 20 mg PO DAILY Qty: 90 2RF ezetimibe 10 mg tablet 10 mg PO DAILY Qty: 90 2RF glimepiride 2 mg tablet 2 mg PO DAILY Qty: 90 2RF pantoprazole 40 mg tablet,delayed release (DR/EC) See Rx Instructions .ROUTE .COMPLEX Qty: 180 2RF Dose Instruction: TAKE 1 TABLET BY MOUTH TWICE DAILY Rx Instructions: TAKE 1 TABLET BY MOUTH TWICE DAILY Follow-up/Referrals: Earnest Santos MD [Primary Care Provider] - Time of Disposition: 09:51 Quality NIHSS Nursing Documentation ED NIHSS nursing documentation: reviewed/agree
[2024-12-22 09:38] LABS: EDCOVIDSCREEN Negative (Negative); EDINFLUASCREEN Negative (Negative); EDINFLUBSCREEN Negative (Negative); EDSTREPNEGPOS1 Negative (Negative); EDUAAPPEAR Clear; EDUABILI Negative (Negative); EDUABLOOD Negative (Negative); EDUACOLOR1 Yellow; EDUAGLUCOSE 1+ (Negative); EDUAKETONE Trace (Negative); EDUALEUKO Negative (Negative); EDUANITRATE Negative (Negative); EDUAPH 5.5; EDUAPROTEIN 1+ (Negative); EDUASPGRAVITY 1.025; EDUAUROBILI 0.2
== END 2024-12-22 09:52 | disposition home or self-care (01) ==
PROVIDERS: Emergency Provider Nurse Practitioner Family; PCP Family Medicine Adolescent Medicine
DX: K52.9 Noninfective gastroenteritis and colitis, unspecified (principal); B34.9 Viral infection, unspecified; Z20.822 Contact with and (suspected) exposure to COVID-19; E11.9 Type 2 diabetes mellitus without complications; I10 Essential (primary) hypertension; F41.9 Anxiety disorder, unspecified; F32.A Depression, unspecified; F79 Unspecified intellectual disabilities
CPT/HCPCS: 81003; 87081; 87086; 87426; 87804; 87880; 99213; G0463

== ENCOUNTER 2025-05-03 10:29 | Inpatient (IN) | payer MEDICARE, MEDICAID, SELFPAY ==
[2025-05-03] VITALS (10 sets, daily range): BP systolic 123–143; BP diastolic 83–95; PULSE 66–75; RESP 14–22; TEMP 36.1–36.5; O2SAT 93–99; BMI 29.7
--- NOTE | ~2025-05-03 | MR_ITS ---
EXAMINATION: MR brain/brain stem wo con DATE: 05/04/2025 15:57 INDICATION: Strokelike symptoms TECHNIQUE: Magnetic resonance imaging (MRI) of the brain and brainstem was performed without intraven ous contrast, utilizing standard technique. COMPARISON: 06/24/2010. FINDINGS: Restricted diffusion is identified within the right temporoparietal lobe, within the distribution of the right middle cerebral artery, consistent with acute cerebral infarction. No additional restricted diffusion is present. No abnormal signal intensity on gradient echo imaging to suggest acute or subacute hemorrhage. Marked enlargement of the pituitary gland, an interval change from 2009 examination. No abnormal signal intensity is identified within the periventricular white matter. The ventricles are symmetric and normal in size. There are no abnormal extra-axial fluid collections. Flow voids are seen in the cerebral arteries on the T2-weighted sequences consistent with their expec liam patency. Visualized orbits and soft tissues are unremarkable. IMPRESSION: Acute cerebral infarction involving the right middle cerebral artery. Marked enlargement of the pituitary gland, as detailed above. Reviewed, dictated and finalized at location A.
--- NOTE | ~2025-05-03 | XR_ITS ---
XR abdomen/kub 1V Ordering provider: Schuyler Lynn MD History: . Constipation . Comparison: August 23, 2010 FINDINGS: BOWEL: Residual contrast seen in the large bowel. Nonobstructive bowel gas pattern. ORGANOMEGALY: None. SIGNIFICANT PATHOLOGIC CALCIFICATIONS: None. OTHER: No free air is seen under the diaphragm. IMPRESSION: NO ACUTE ABDOMINAL FINDINGS. Fecal material seen in the right side of the colon which may indicate constipation. Reviewed, dictated and finalized at location A. IMPRESSION: NO ACUTE ABDOMINAL FINDINGS. Fecal material seen in the right side of the colon which may indicate constipat ion.
--- NOTE | ~2025-05-03 | XR_ITS ---
MODIFIED ESOPHAGRAM HISTORY: Stroke TECHNIQUE: Modified barium esophagram was performed on 05/06/2025. I administered fluoroscopy and perf ormed the exam with speech pathologist. Patient was seated for lateral fluoroscopic imaging for darryl stion of thin liquids, pudding, solids and quantified amounts, followed by thin liquids in uncontroll ed amounts. This was recorded on tape. A single fluoroscopic spot image was also recorded. The DAP fo r this procedure was 1.64 Gycm2. The amount of fluoroscopy time used during this procedure was 3.0 mi nutes. FINDINGS: Oral stage: The oral stage is severely delayed with delayed oral transit on all consistencies. Reduce d labial seal/lip tension and reduced lingual movement. Bolus formation was best with pudding consist ency.. Pharyngeal stage: Reduced laryngeal elevation and adduction. Reduced tongue base retraction. There is vallecular residue. Laryngeal penetration and aspiration with thin liquids. Cervical/esophageal stage: Adequate function. IMPRESSION: Oropharyngeal dysphagia with laryngeal penetration and aspiration with thin liquids. Ple ase correlate with speech pathologist findings and specific feeding recommendations. Reviewed, dictated and finalized at location A. IMPRESSION: Oropharyngeal dysphagia with laryngeal penetration and aspiration w ith thin liquids. Please correlate with speech pathologist findings and specif ic feeding recommendations.
--- NOTE | ~2025-05-03 | CT_ITS ---
Non-contrast Head CT History: CVA Technique: Axial non-contrast imaging of the brain was performed. Dose reduction technique was used on this scan by utilizing automated exposure control and iterative reconstruction technique. The dose -length product (DLP) was 605.33 mGy-cm. Findings: There is no evidence of intracranial hemorrhage, mass lesion, or acute infarct. Brain par enchyma appears normal. The ventricles and subarachnoid spaces are normal in size. The calvarium ap pears normal. The visualized paranasal sinuses and mastoid air cells are clear. Impression: No significant abnormality seen. Case discussed with Dr. Hale at 10:45 AM on 05/03/2025. Reviewed, dictated and finalized at location . Impression: No significant abnormality seen. Case discussed with Dr. Hale at 10:45 AM on 05/03/2025.
--- NOTE | ~2025-05-03 | XR_ITS ---
XR chest 1V portable 05/03/2025 10:58 Indication: Slurred speech and facial droop Procedure: AP portable chest Comparison: 09/28/2024 Findings: Low lung volumes, consistent with expiratory film. Bibasilar infiltrates may represent atel ectasis or less likely pneumonia. No pleural effusion or pneumothorax. Impression: 1: Bibasilar infiltrates may represent atelectasis or less likely pneumonia. Reviewed, dictated and finalized at location B. Impression: 1: Bibasilar infiltrates may represent atelectasis or less likely pneumonia.
--- NOTE | ~2025-05-03 | CT_ITS ---
EXAMINATION: CTA BRAIN/CAROTID DATE: 05/03/2025 10:45 INDICATION: Left-sided facial droop and slurred speech TECHNIQUE: Computed tomographic angiography (CTA) of the head and neck was performed with 100 mL Omni paque-350 intravenous contrast. Multiplanar reconstructions and maximum intensity projection 3D-recon structions of the carotid arteries and of the intracranial arteries were created by the technologist on a separate workstation. Precontrast CT of the head was also obtained. Automated exposure control and iterative reconstruction technique were employed.The dose-length product was 1099.41 mGy-cm. COMPARISON: None. FINDINGS: Carotid arteries: Visualized aortic arch antegrade vessels arising from the arch are normal in caliber with no atherosc lerotic plaque or dissection. There is no atherosclerotic plaque with 0% stenosis of the right and le ft carotid bulbs relative to normal distal artery lumen diameter (NASCET criteria). Normal azygos lob e and fissure at the medial right apex. Cervical soft tissues are unremarkable. Likely positional str aightening of the normal cervical lordosis with minimal spondylosis. Intracranial arteries Vertebral arteries are codominant. There is no hemodynamically significant stenosis in the vertebral, basilar and internal carotid arteries. Both A1 and P1 segments are patent. The right A1 segment is r elatively small with likely collateral flow to the more distal right anterior cerebral artery supplie d via a patent anterior communicating artery. There are no aneurysms identified. Cerebral arterial a rborization appears symmetric. No abnormally enhancing brain lesions identified. IMPRESSION: 1. No evident atherosclerotic plaque with 0% stenosis of the right and left carotid bulbs relative to normal distal artery lumen diameter (NASCET criteria). 2. Unremarkable cerebral CT angiogram with no hemodynamically significant stenosis, thrombosis or ane urysm. Reviewed, dictated and finalized at location A. IMPRESSION: 1. No evident atherosclerotic plaque with 0% stenosis of the right and left car otid bulbs relative to normal distal artery lumen diameter (NASCET criteria). 2. Unremarkable cerebral CT angiogram with no hemodynamically significant steno sis, thrombosis or aneurysm.
--- NOTE | ~2025-05-03 | XR_ITS ---
EXAMINATION: XR chest 2V 05/04/2025 08:07 INDICATION: Aspiration. PROCEDURE: 2 view chest COMPARISON: 05/03/2015 FINDINGS: Shallow inspiration with crowding of the pulmonary vessels. Allowing for confluence of vess els, no definite infiltrates are identified. The cardiomediastinal silhouette is within normal limits . There are no pleural effusions. There is no pneumothorax suspected. IMPRESSION: 1: NO ACUTE CARDIOPULMONARY DISEASE. Reviewed, dictated and finalized at location B.
--- NOTE | 2025-05-03 10:29 | ECG_ITS ---
Test Date: 2025-05-03 11:06:41 Measurements Intervals [place] Rate: 67 P: -79 NH: 201 QRS: -5 QRSD: 117 T: -1 QT: 390 QTc: 413 Interpretive Statements SINUS RHYTHM INTRAVENTRICULAR CONDUCTION DELAY BORDERLINE T WAVE ABNORMALITY- INFERIOR LEADS BORDERLINE ECG No previous ECG available for comparison Electronically Signed On 05-03-2025 11:17:24 CDT by Jeremie Martinez D.O.
--- NOTE | 2025-05-03 10:34 | ED_ITS ---
HPI - Neuro Symptoms/Deficit General Chief Complaint: Suspected CVA Stated Complaint: r/o CVA Time Seen by Provider: 05/03/25 10:31 History of Present Illness HPI Narrative: 40-year-old male with no prior history CVA presents to the emergency department for evaluation for left-sided deficit. Patient states when he went to bed last night at 11:00 p.m. he had no deficit when he woke up this morning he has left- sided facial droop left arm weakness. Patient does have prior history of grand mal seizures. Related Data Home Medications ?Medication ?Instructions ?Recorded ?Confirmed ?Last Taken ?Type quetiapine 200 mg tablet (Seroquel) 200 mg PO HS 07/27/22 05/03/25 Unknown History lamotrigine 150 mg tablet 150 mg PO BID 02/05/23 05/03/25 Unknown History clonazepam 0.5 mg tablet 0.5 mg PO BID 12/22/24 05/03/25 05/02/25 History eletriptan 40 mg tablet See Rx Instructions PO .COMPLEX 05/03/25 05/03/25 Unknown History PRN migraine headache propranolol 160 mg capsule,24 160 mg PO HS 05/03/25 05/03/25 Unknown History hr,extended release Allergies Allergy/AdvReac Type Severity Reaction Status Date / Time chlorpheniramine Allergy Unknown Other Verified 05/03/25 15:22 naproxen Allergy Unknown Nose Bleed Verified 05/03/25 15:22 phenylephrine Allergy Unknown Other Verified 05/03/25 15:22 scopolamine Allergy Unknown Other Verified 05/03/25 15:22 ANTICHOLINERGICS,OTHER Allergy Unknown Other Uncoded 05/03/25 15:22 Review of Systems 2 Review of Systems: All systems reviewed & are unremarkable except as noted in HPI and below PMFSH Past Medical History Medical History History of urinary stone (06/2024) Left ureteral stone Anxiety and depression History of arm fracture left distal radius 04/1990 History of chickenpox 04/1990 Diabetes type 2, controlled Migraine headache ADHD Eczema Reflux gastritis HTN (hypertension) Mentally challenged Surgical History Surgical History History of tonsillectomy (2007) Family History Family History (Updated 05/03/25 @ 15:12 by Shanda Moscoso RN) Mother Diabetes mellitus Hypertension Pulmonary embolism Seizure Father Diabetes mellitus Heart disease Hypertension Grandparent Diabetes mellitus Heart disease Hypertension Kidney failure Social History Social History Smoking status: Never smoker Second hand tobacco smoke exposure: No Alcohol intake: never Substance use: never Substance use type: does not use Do You Feel Safe in your Home?: Yes Lack of Transportation: No Lack of Food: Never True Current Housing: I Have Housing Concerned About Future Housing: No Difficulty Paying Gas/Electric Bills: No Difficulty Paying for Meds: No Currently Unemployed: No Education: Don't Know Difficulty w/ Childcare or Family Care: No Living arrangements: with family Occupation/Education: other Gender identity (if verbalized by the patient): Male Spiritual care concerns: No Exam 2 Narrative: APPEARANCE: Well appearing, no pain, no distress, well-nourished. HEAD: normocephalic, atraumatic. EYES: PERRLA/EOMI, conjunctivae clear. NOSE: Normal no drainage EARS:TMS clear with good light reflex. THROAT: Pharynx clear, no exudate. NECK: Supple. No adenopathy, no masses. RESPIRATORY: Airway patent, respirations nonlabored. Clear to auscultation bilaterally, no rales, rhonchi, wheezing. CARDIOVASCULAR: Regular rate and rhythm without murmurs rubs or gallops. ABDOMINAL: Soft, nontender, nondistended, normal bowel sounds MUSCULOSKELETAL: Moves all extremities. Strength/ROM intact, No edema, No calf tenderness. NEURO: Left-sided facial droop, left arm weakness SKIN: Warm, dry. Normal Color Course Vital Signs Vital signs: Vital Signs Temperature 97.5 F L 05/03/25 10:50 Pulse Rate 66 05/03/25 10:50 Respiratory Rate 18 05/03/25 10:50 Blood Pressure 136/95 H 05/03/25 10:50 Pulse Oximetry 99 05/03/25 10:50 Oxygen Delivery Room Air 05/03/25 10:50 Temperature 97.5 F L 05/03/25 14:00 Pulse Rate 68 05/03/25 16:52 Respiratory Rate 18 05/03/25 14:00 Blood Pressure 123/83 05/03/25 14:00 Pulse Oximetry 95 05/03/25 14:00 Oxygen Delivery Room Air 05/03/25 10:50 MDM - Neuro Symptoms/Deficit MDM Narrative Medical decision making narrative: 40-year-old male present to the emergency department for evaluation for left- sided weakness for the last normal approximately 11:00 p.m. or 12 hours prior to arrival. CT and CTA were negative for acute abnormalities. Patient still does have left-sided facial droop left arm flaccid paralysis with no significant involvement of the left leg. Patient failed his swallow study so he was treated with rectal aspirin. Patient and family are updated the results of the imaging and plan for admission. MRI was ordered. Patient was admitted for further stroke evaluation. Differential Diagnosis Differential diagnosis: Likely other (TIA, CVA, epilepsy, Ruddy's paralysis) Lab Data Attestation: I reviewed the patient's lab results. 05/03/25 11:22 05/03/25 11:22 Labs: Lab Results 05/03/25 05/03/25 05/03/25 Range/Units 10:33 10:37 11:22 WBC 5.9 (4.5-10.0) K/mm3 RBC 4.69 (4.6-6.20) M/mm3 Hgb 14.2 (14.0-18.0) g/dL Hct 41.6 L (42.0-52.0) % MCV 88.7 (80-100) fl MCH 30.3 (26-34) pg MCHC 34.1 (32-36) g/dl RDW 12.3 (11.5-14.5) % Plt Count 150 (150-375) k/mm3 MPV 9.6 (7.4-10.4) fl Immature Gran % (Auto) 1.4 H (0-0.5) % Neut % (Auto) 54.5 (45.5-73.1) % Lymph % (Auto) 34.1 (18.3-44.2) % [place] % (Auto) 7.4 (2.6-8.5) % Eos % (Auto) 1.9 (0-4.4) % Baso % (Auto) 0.7 (0.2-1.2) % Lymph # (Auto) 2.02 (0.9-3.2) K/mm3 [place] # (Auto) 0.4 (0.1-0.6) K/mm3 Eos # (Auto) 0.1 (0-0.3) K/mm3 Baso # (Auto) 0.0 (0.0-0.1) K/mm3 Abs Immat Gran (auto) 0.08 H (0.00-0.031) K/mm3 Absolute Neuts (auto) 3.2 (1.3-6.7) K/mm3 Absolute Nucleated RBC 0.000 (0.0-0.012) K/mm3 Nucleated RBC % 0.0 (0.0-0.2) % PT 12.8 (11.1-14.7) Seconds INR 1.0 APTT 24.6 (22.3-36.8) Seconds Sodium 133 L (137-145) mmol/L Potassium 4.1 (3.4-5.0) mmol/L Chloride 101 (98-107) mmol/L Carbon Dioxide 23 (22-30) mmol/L Anion Gap 9 (4-12) mmol/L BUN 20 (9-20) mg/dL Creatinine 1.10 0.95 (0.8-1.5) mg/dL Estim Creat Clear Calc Not Reportable 118 Estimated GFR > 60 > 60 (59 - ) Glucose 324 H (65-110) mg/dL POC Capillary Glucose 315 H (65-105) mg/dl Calcium 8.6 (8.4-10.2) mg/dL Total Bilirubin 1.0 (0.2-1.3) mg/dL AST 33 (17-59) U/L ALT 47 (6-50) U/L Alkaline Phosphatase 112 (38-126) U/L Troponin I < 0.012 (0.000-0.034) ng/mL Total Protein 6.0 L (6.3-8.2) g/dL Albumin 3.8 (3.5-5.1) g/dL Imaging Data Radiologist's impression: Impressions Head CT 05/03/25 10:45 Impression: No significant abnormality seen. Case discussed with Dr. Hale at 10:45 AM on 05/03/2025. Head/Neck CTA 05/03/25 11:11 IMPRESSION: 1. No evident atherosclerotic plaque with 0% stenosis of the right and left carotid bulbs relative to normal distal artery lumen diameter (NASCET criteria). 2. Unremarkable cerebral CT angiogram with no hemodynamically significant stenosis, thrombosis or aneurysm. Chest X-Ray 05/03/25 11:12 Impression: 1: Bibasilar infiltrates may represent atelectasis or less likely pneumonia. ECG Data EKG #1: EKG Interpretation: normal rate, sinus rhythm, non-specific ST changes, normal QRS, normal QT and NL axis Discharge Plan Discharge Clinical Impression: Acute CVA (cerebrovascular accident), Pneumonia Patient Disposition: Still a Patient Condition: Serious Quality Stroke Scale Stroke Scale 1: 1a Level of consciousness: alert-0 1b Level of consciousness questions: answers both correctly-0 1c Level of consciousness commands: obeys both correctly-0 2 Best gaze: normal-0 3 Visual: no visual loss-0 4 Facial palsy: partial paralysis-2 5a Motor: left arm: no movement-4 5b Motor: right arm: no drift-0 6a Motor: left leg: no drift-0 6b Motor: right leg: no drift-0 7 Limb ataxia: present in one limb-1 8 Sensory: normal-0 9 Best language: some loss of fluency-1 10 Dysarthria: slurs some words-1 11 Extinction and inattention: no abnormality-0 Level:: 9
[2025-05-03 10:42] LABS: Estimated Glomerular Filt Rate > 60
[2025-05-03 10:54] LABS: Glucose Point of Care 315 mg/dl (65-105)
--- NOTE | 2025-05-03 11:22 | PC.NURSE ---
Bedside report received from Jeanne BROWNE
[2025-05-03 11:31] LABS: Basophils Percent Auto 0.7 % (0.2-1.2); Eosinophils Absolute Auto 0.1 K/mm3 (0-0.3); Eosinophils Percent Auto 1.9 % (0-4.4); Hematocrit 41.6 % (42.0-52.0); Hemoglobin 14.2 g/dL (14.0-18.0); Immature Granulocyte Absolute 0.08 K/mm3 (0.00-0.031); Immature Granulocyte Percent A 1.4 % (0-0.5); Lymphocytes Absolute Auto 2.02 K/mm3 (0.9-3.2); Lymphocytes Percent Auto 34.1 % (18.3-44.2); Mean Corpuscular HGB Conc 34.1 g/dl (32-36); Mean Corpuscular Hemoglobin 30.3 pg (26-34); Mean Corpuscular Volume 88.7 fl (80-100); Mean Platelet Volume 9.6 fl (7.4-10.4); Monocytes Absolute Auto 0.4 K/mm3 (0.1-0.6); Monocytes Percent Auto 7.4 % (2.6-8.5); Neutrophils Absolute Auto 3.2 K/mm3 (1.3-6.7); Neutrophils Percent Auto 54.5 % (45.5-73.1); Platelet Count Result 150 k/mm3 (150-375); Red Blood Count 4.69 M/mm3 (4.6-6.20); Red Cell Distribution Width 12.3 % (11.5-14.5); White Blood Count 5.9 K/mm3 (4.5-10.0)
[2025-05-03 11:41] LABS: Alanine Aminotransferase 47 U/L (6-50); Albumin Level 3.8 g/dL (3.5-5.1); Alkaline Phosphatase 112 U/L (38-126); Anion Gap 9 mmol/L (4-12); Aspartate Amino Transferase 33 U/L (17-59); Blood Urea Nitrogen 20 mg/dL (9-20); Calcium 8.6 mg/dL (8.4-10.2); Carbon Dioxide 23 mmol/L (22-30); Chloride 101 mmol/L (98-107); Estimated CRCL calculation 118 ml/min; Estimated Glomerular Filt Rate > 60; Glucose 324 mg/dL (65-110); Partial Thromboplastin Time 24.6 Seconds (22.3-36.8); Potassium 4.1 mmol/L (3.4-5.0); Prothrombin Time 12.8 Seconds (11.1-14.7); Sodium 133 mmol/L (137-145)
[2025-05-03 11:54] LABS: Troponin I < 0.012 ng/mL (0.000-0.034)
--- NOTE | 2025-05-03 12:14 | PC.NURSE ---
Patient failed swallow study
[2025-05-03] MEDS: ONDANSETRON INJ 4 MG/2 ML VIAL IV PUSH (12:34)
[2025-05-03] MEDS: LACTATED RINGERS 1,000 ML 125 ML IV CONT ×2 (12:37→20:49)
[2025-05-03] MEDS: ASPIRIN 300 MG SUPPOSITORY RECTAL (12:59)
[2025-05-03 13:13] LABS: Magnesium 1.9 mg/dL (1.6-2.3)
[2025-05-03] MEDS: AZITHROMYCIN 500 MG/NS 250 ML 500 MG/250 ML BAG 250 MG IVPB (13:18)
--- NOTE | 2025-05-03 13:36 | P.HP_ITS ---
H&P: HPI History of Present Illness Date/Time: 05/03/25 13:36 Chief Complaint: Left-sided deficits Narrative: 40-year-old male past medical history of diabetes type 2, ADHD, hypertension and mentally challenged presents the hospital with left-sided facial droop and left arm weakness. Last seen wall was 11:00 p.m. last night. Patient woke up this morning and family knows of left facial droop and left arm weakness and brought him to the hospital. Patient states that he was in an able to drink this morning or take his pills. He states that normally has no issues with swallowing or his left arm mobility. Denies fever chills Lab work shows sodium of 133, glucose 324, TSH pending. CT have no acute findings, CTA no acute findings,No evident atherosclerotic plaque with 0% stenosis of the right and left carotid bulbs relative to normal distal artery lumen diameter (NASCET criteria). EKG shows sinus rhythm with borderline T-wave abnormalities rate of 67. Chest x-ray shows infiltrates possibly atelectasis versus pneumonia. Review of Systems Review of Systems: 12 systems were reviewed and are negativ e except for as per HPI. [facility] Past Medical History Medical History History of urinary stone (06/2024) Left ureteral stone Anxiety and depression History of arm fracture left distal radius 04/1990 History of chickenpox 04/1990 Diabetes type 2, controlled Migraine headache ADHD Eczema Reflux gastritis HTN (hypertension) Mentally challenged Surgical History Surgical History History of tonsillectomy (2007) Family History Family History (Updated 05/03/25 @ 15:12 by Shanda Moscoso RN) Mother Diabetes mellitus Hypertension Pulmonary embolism Seizure Father Diabetes mellitus Heart disease Hypertension Grandparent Diabetes mellitus Heart disease Hypertension Kidney failure Social History Social History Smoking status: Never smoker Second hand tobacco smoke exposure: No Alcohol intake: never Substance use: never Substance use type: does not use Do You Feel Safe in your Home?: Yes Lack of Transportation: No Lack of Food: Never True Current Housing: I Have Housing Concerned About Future Housing: No Difficulty Paying Gas/Electric Bills: No Difficulty Paying for Meds: No Currently Unemployed: No Education: Don't Know Difficulty w/ Childcare or Family Care: No Living arrangements: with family Occupation/Education: other Gender identity (if verbalized by the patient): Male Spiritual care concerns: No Meds Home Medications and Allergies Home Medications ?Medication ?Instructions ?Recorded ?Confirmed ?Type quetiapine 200 mg tablet (Seroquel) 200 mg PO HS 07/27/22 05/03/25 History lamotrigine 150 mg tablet 150 mg PO BID 02/05/23 05/03/25 History blood-glucose meter (Accu-Chek #1 ea 08/16/23 05/03/25 Rx Merary Plus Meter) blood sugar diagnostic (Accu-Chek #100 strips 10/03/23 05/03/25 Rx Guide test strips) lancets (Accu-Chek Softclix #100 ea 10/03/23 05/03/25 Rx Lancets) rosuvastatin 20 mg tablet 20 mg PO DAILY #90 tabs 08/13/24 05/03/25 Rx lisinopril 20 mg tablet 20 mg PO DAILY #90 tabs 09/10/24 05/03/25 Rx ezetimibe 10 mg tablet 10 mg PO DAILY #90 tabs 10/15/24 05/03/25 Rx glimepiride 2 mg tablet 2 mg PO DAILY #90 tabs 10/15/24 05/03/25 Rx pantoprazole 40 mg tablet,delayed See Rx Instructions .Route 10/15/24 05/03/25 Rx release .COMPLEX #180 tabs clonazepam 0.5 mg tablet 0.5 mg PO BID 12/22/24 05/03/25 History metformin 500 mg tablet,extended 1,000 mg (2 x 500 mg) PO BID #360 01/14/25 05/03/25 Rx release 24 hr tabs montelukast 10 mg tablet 10 mg PO DAILY #90 tabs 03/09/25 05/03/25 Rx (Singulair) nortriptyline 25 mg capsule 25 mg PO QHS #90 caps 03/10/25 05/03/25 Rx eletriptan 40 mg tablet See Rx Instructions PO .COMPLEX 05/03/25 05/03/25 History PRN migraine headache propranolol 160 mg capsule,24 160 mg PO HS 05/03/25 05/03/25 History hr,extended release Allergies Allergy/AdvReac Type Severity Reaction Status Date / Time chlorpheniramine Allergy Unknown Other Verified 05/03/25 15:22 naproxen Allergy Unknown Nose Bleed Verified 05/03/25 15:22 phenylephrine Allergy Unknown Other Verified 05/03/25 15:22 scopolamine Allergy Unknown Other Verified 05/03/25 15:22 ANTICHOLINERGICS,OTHER Allergy Unknown Other Uncoded 05/03/25 15:22 Vital Signs Vital Signs - 24 hr 05/03/25 10:50 05/03/25 12:00 05/03/25 12:11 Temperature 97.5 F L Pulse Rate 66 68 Respiratory Rate 18 19 Blood Pressure 136/95 H 143/91 H Pulse Oximetry 99 94 94 Oxygen Delivery Room Air Exam Narrative: General: well appearing, appears stated age. HEENT: normocephalic, atraumatic. Mucous membranes moist. EOMI, PERRLA, bilateral sclera anicteric, no conjunctival injection. Neck supple without JVD, lymphadenopathy, or bruit. Asymmetrical smile, dysarthria Respiratory: clear to ascultation bilaterally. No rales/rhonic/wheezes. Cardiovascular: Regular rate and rhythm, normal S1-S2 upon ascultation. No murmurs, rubs, or clicks. PMI is nondisplaced, capillary refill less than 3 second. Abdomen: Soft, round, no pulsatile masses, nondistended and nontender. No rebound, no guarding. No CVA tenderness, no hepatosplenomegaly. Bowel sounds present to all four quadrants. No high pitch or tinkling sounds, resonant to percussion. Extremities: No cyanosis, clubbing, or edema present. Pulses are palpable 2/2. Right arm 5/5, left arm 4/5, lower extremities 5/5 Neuro: Alert and orientated x 4. PERRLA. Cranial nerves 2-12 intact without focal deficit. Skin: Warm, dry, and intact, without rash, erythema, or lesion. Psych: pleasant, cooperative, normal speech, normal affect, no hallucinations, no dysarthia H&P: Results Labs Labs: Short CBC 05/03/25 Range/Units 11:22 WBC 5.9 (4.5-10.0) K/mm3 Hgb 14.2 (14.0-18.0) g/dL Hct 41.6 L (42.0-52.0) % Plt Count 150 (150-375) k/mm3 BMP 05/03/25 05/03/25 10:37 11:22 Sodium 133 L Potassium 4.1 Chloride 101 Carbon Dioxide 23 BUN 20 Creatinine 1.10 0.95 Glucose 324 H Calcium 8.6 Cardiac Enzymes 05/03/25 Range/Units 11:22 Troponin I < 0.012 (0.000-0.034) ng/mL Liver Function 05/03/25 Range/Units 11:22 Total Bilirubin 1.0 (0.2-1.3) mg/dL AST 33 (17-59) U/L ALT 47 (6-50) U/L Alkaline Phosphatase 112 (38-126) U/L Albumin 3.8 (3.5-5.1) g/dL Assessment and Plan Assessment and plan (1) Acute CVA (cerebrovascular accident): Code(s): I63.9 - Cerebral infarction, unspecified Status: Acute Assessment and Plan: Outside of window for tPA Neurology consult MR brain in the morning Swallow study by speech. Foods and crushed medications PT OT Aspirin (2) Aspiration pneumonia: Code(s): J69.0 - Pneumonitis due to inhalation of food and vomit Status: Acute Assessment and Plan: Atelectasis versus pneumonia on chest x-ray read however it appears to be and right lower lobe were aspiration pneumonia is most likely Patient has failed bedside swallow Pureed Diet crush meds Repeat chest x-ray in a.m. Blood cultures pending Continue Rocephin, azithromycin changed to doxy due to patient being on Seroquel (3) HTN (hypertension): Code(s): I10 - Essential (primary) hypertension Status: Acute Assessment and Plan: Continue lisinopril (4) Diabetes type 2, controlled: Code(s): E11.9 - Type 2 diabetes mellitus without complications Status: Acute Assessment and Plan: Puree Diet A.c. HS Accu-Cheks SSI Hold oral metformin (5) Grand mal seizure disorder: Code(s): G40.409 - Other generalized epilepsy and epileptic syndromes, not intractable, without status epilepticus Status: Acute Assessment and Plan: Continue Klonopin and nortriptyline Plan Unable to crush Flomax willing to restart once patient is able swallow whole pills Quality VTE Prophylaxis VTE prophylaxis: mechanical ordered and pharmacologic ordered Stroke Date of last known normal: 05/02/25 Time of last known normal: 11:00 Stroke Scale Stroke scale date:: 05/03/25 Stroke scale time:: 20:00 1a Level of conciousness: alert-0 1b Level of consciousness: answers both correctly-0 1c Level of consciousness: obeys both correctly-0 2 Best gaze: normal-0 3 Visual: no visual loss-0 4 Facial palsy: minor paralysis-1 5a Motor: left arm: drift-1 5b Motor: right arm: no drift-0 6a Motor: left leg: no drift-0 6b Motor: right leg: no drift-0 7 Limb ataxia: present in one limb-1 8 Sensory: pinprick less sharp-1 9 Best language: some loss of fluency-1 10 Dysarthria: slurs some words-1 11 Extinction and inattention: no abnormality-0 Level:: 6 Hospitalist [facility] Advance Care Plan I have confirmed that the patient's Advanced Care Plan is present, code status is documented, or surrogate decision maker is listed in patient medical record.: Yes Medication Reconciliation I have utilized all available resources to obtain, update and review the patients current medications (includes all prescriptions, OTC, herbals, cannabis, and nutritional supplements).: Yes
--- NOTE | 2025-05-03 15:08 | ADMGEN ---
This patient, Carlos Cohn, was admitted to 3 [facility] Surg Room 326-01. Patient/family oriented to hospital policies and general routines including ID bracelet, bed and alarms, visiting hours, pain management, procedures, bathroom and other care routines, personal items, smoking policy, room service/diet, and visiting hours. Information on how to activate the Rapid Response Team has been discussed. Patient/Family are encouraged to report perceived risks to care and to ask questions if they do not understand what they are told or what they should do. Report from trent in ER.
--- NOTE | 2025-05-03 15:37 | PCSTNOTE ---
Please refer to the Bedside Swallow Evaluation in the EMR. Please note, silent aspiration cannot be ruled out at bedside. The patient is a 40 yr old male admitted with new onset CVA with left side weakness and left facial droop. Orders received to complete a BSS exam and r/o aspiration risk. The patient was positioned upright in bed, with family present. The patient was then presented trials of water via tsp, water controlled cup amounts by BILLING ADMINISTRATOR, and puree texture (applesauce & pudding). When presented initial tsp amount thin liquid and puree textures the patient had an open mouth posture with some difficulty completing labial seal. Oral transit was delayed but the swallow reflex appeared timely and vocal quality was clear. When presented tsp trials of pudding the patient had a notably delayed oral transit time with the bolus remaining on the anterior portion of the tongue. Verbal cues were need to initiate oral transit. Again once swallow initiation was complete for pudding and applesauce trials the swallow initiation appeared timely with a clear vocal quality. Additional trials of puree applesauce were attempted to increase oral awareness with a more tart taste and presented on the right side of the mouth with some improvement in oral awareness, oral transit, and reduced oral residual. Again swallow reflex was timely once initiated with a clear vocal quality following. When presented small controlled sips by BILLING ADMINISTRATOR of thin liquid via a cup the patient had loss of liquid due to decreased labial seal on the left and right but was able to transfer the bolus posteriorly for the swallow and swallow initiation appeared timely with a clear vocal quality following. Reviewed results and recommendations with nursing and the patient's parent present in the room. Recommendations Include: 1. Puree Diet (Level 4) 2. Thin Liquid (Level 0) 3. Tsp amounts liquid and puree 4. Staff to assist with all feeding 5. Positioned Upright 6. Slow rate of presentation 7. Alternate bites and drinks 8. Crushed Medication 8. Speech therapy to initiate oral motor exercises, Speech Communication Evaluation, Re-assess Swallow function if oral awareness improves.
[2025-05-03] MEDS: PROPRANOLOL HCL 40 MG TABLET PO ×2 (16:52→22:59)
[2025-05-03] MEDS: clonazePAM (*CRX) 0.5 MG TABLET PO (16:52)
[2025-05-03 18:32] LABS: Glucose Point of Care 238 mg/dl (65-105)
[2025-05-03] MEDS: INSULIN ASPART (*BKC) 100 UNITS/ML SUB-Q (18:40)
[2025-05-03] MEDS: NORTRIPTYLINE HCL 25 MG CAPSULE PO (20:44)
[2025-05-03] MEDS: lamoTRIgine 50 MG TABLET 150 MG PO (20:44)
--- NOTE | 2025-05-03 22:28 | ECG_ITS ---
Test Date: 2025-05-03 22:54:17 Measurements Intervals [place] Rate: 64 P: 21 IN: 206 QRS: -9 QRSD: 119 T: 1 QT: 393 QTc: 407 Interpretive Statements SINUS RHYTHM BORDERLINE AV CONDUCTION DELAY INTRAVENTRICULAR CONDUCTION DELAY BORDERLINE T WAVE ABNORMALITY- INFERIOR LEADS BORDERLINE ECG Compared to ECG 05/03/2025 11:06:41 No significant changes Electronically Signed On 05-04-2025 07:17:06 CDT by Jeremie Martinez D.O.
[2025-05-03 22:50] LABS: Glucose Point of Care 126 mg/dl (65-105)
[2025-05-03] MEDS: ACETAMINOPHEN 325 MG TABLET 650 MG PO (22:54)
[2025-05-04] VITALS (11 sets, daily range): BP systolic 124–144; BP diastolic 87–94; PULSE 62–78; RESP 16–20; TEMP 36.1–36.7; O2SAT 98–100
[2025-05-04] MEDS: LACTATED RINGERS 1,000 ML 125 ML IV CONT ×2 (04:48→18:13)
[2025-05-04] MEDS: PROPRANOLOL HCL 40 MG TABLET PO ×3 (05:33→18:13)
[2025-05-04] MEDS: ACETAMINOPHEN 325 MG TABLET 650 MG PO ×2 (05:33→20:27)
[2025-05-04 06:34] LABS: Basophils Percent Auto 0.4 % (0.2-1.2); Eosinophils Absolute Auto 0.2 K/mm3 (0-0.3); Eosinophils Percent Auto 1.9 % (0-4.4); Hematocrit 43.6 % (42.0-52.0); Immature Granulocyte Absolute 0.06 K/mm3 (0.00-0.031); Immature Granulocyte Percent A 0.7 % (0-0.5); Lymphocytes Absolute Auto 1.96 K/mm3 (0.9-3.2); Lymphocytes Percent Auto 23.3 % (18.3-44.2); Mean Corpuscular HGB Conc 34.4 g/dl (32-36); Mean Corpuscular Hemoglobin 30.4 pg (26-34); Mean Corpuscular Volume 88.4 fl (80-100); Mean Platelet Volume 9.6 fl (7.4-10.4); Monocytes Absolute Auto 0.6 K/mm3 (0.1-0.6); Monocytes Percent Auto 7.6 % (2.6-8.5); Neutrophils Absolute Auto 5.6 K/mm3 (1.3-6.7); Neutrophils Percent Auto 66.1 % (45.5-73.1); Platelet Count Result 167 k/mm3 (150-375); Red Blood Count 4.93 M/mm3 (4.6-6.20); Red Cell Distribution Width 12.1 % (11.5-14.5); White Blood Count 8.4 K/mm3 (4.5-10.0)
[2025-05-04 06:47] LABS: Anion Gap 9 mmol/L (4-12); Blood Urea Nitrogen 17 mg/dL (9-20); Calcium 8.6 mg/dL (8.4-10.2); Carbon Dioxide 25 mmol/L (22-30); Chloride 102 mmol/L (98-107); Estimated CRCL calculation 126 ml/min; Estimated Glomerular Filt Rate > 60; Glucose 178 mg/dL (65-110); Potassium 3.8 mmol/L (3.4-5.0); Sodium 136 mmol/L (137-145)
[2025-05-04 07:54] LABS: Glucose Point of Care 237 mg/dl (65-105)
[2025-05-04] MEDS: lamoTRIgine 50 MG TABLET 150 MG PO ×2 (09:17→20:28)
[2025-05-04] MEDS: EZETIMIBE 10 MG TABLET PO (09:17)
[2025-05-04] MEDS: ACETAMINOPHEN/BUTALBITAL/CAFFEINE 325-50-40 MG TABLET (FIORICET) 1 TAB PO (09:18)
[2025-05-04] MEDS: ROSUVASTATIN 20 MG TABLET PO (09:18)
[2025-05-04] MEDS: MONTELUKAST SODIUM 10 MG TABLET PO (09:19)
[2025-05-04] MEDS: clonazePAM (*CRX) 0.5 MG TABLET PO ×2 (09:19→18:13)
[2025-05-04] MEDS: lisinopriL 20 MG TABLET PO (09:19)
[2025-05-04] MEDS: ENOXAPARIN 40 MG/0.4 ML SYRINGE SUB-Q (09:19)
[2025-05-04] MEDS: INSULIN ASPART (*BKC) 100 UNITS/ML SUB-Q ×3 (09:30→18:13)
[2025-05-04 11:56] LABS: Glucose Point of Care 271 mg/dl (65-105)
--- NOTE | 2025-05-04 13:42 | P.PNIM_ITS ---
Progress Note: A&P Assessment and Plan (1) Acute CVA (cerebrovascular accident): Code(s): I63.9 - Cerebral infarction, unspecified Status: Acute Assessment and Plan: Outside of window for tPA Neurology consult MR brain in the morning Swallow study by speech. Foods and crushed medications PT OT Aspirin (2) Aspiration pneumonia: Code(s): J69.0 - Pneumonitis due to inhalation of food and vomit Status: Acute Assessment and Plan: Atelectasis versus pneumonia on chest x-ray read however it appears to be and right lower lobe were aspiration pneumonia is most likely Patient has failed bedside swallow Pureed Diet crush meds Repeat chest x-ray in a.m. Blood cultures pending Continue Rocephin, azithromycin changed to doxy due to patient being on Seroquel (3) HTN (hypertension): Code(s): I10 - Essential (primary) hypertension Status: Acute Assessment and Plan: Continue lisinopril (4) Diabetes type 2, controlled: Code(s): E11.9 - Type 2 diabetes mellitus without complications Status: Acute Assessment and Plan: Puree Diet A.c. HS Accu-Cheks SSI Hold oral metformin (5) Grand mal seizure disorder: Code(s): G40.409 - Other generalized epilepsy and epileptic syndromes, not intractable, without status epilepticus Status: Acute Assessment and Plan: Continue Klonopin and nortriptyline Plan Unable to crush Flomax willing to restart once patient is able swallow whole pills Subjective Date/time seen: 05/04/25 13:42 Interval history: Pending MRI. Patient has a left-sided upper extremity weakness. Discussed with Neurology. Review of Systems Review of Systems: 12 systems were reviewed and are negativ e except for as per HPI. Exam Narrative: General: well appearing, appears stated age. HEENT: normocephalic, atraumatic. Mucous membranes moist. EOMI, PERRLA, bilateral sclera anicteric, no conjunctival injection. Neck supple without JVD, lymphadenopathy, or bruit. Asymmetrical smile, dysarthria Respiratory: clear to ascultation bilaterally. No rales/rhonic/wheezes. Cardiovascular: Regular rate and rhythm, normal S1-S2 upon ascultation. No murmurs, rubs, or clicks. PMI is nondisplaced, capillary refill less than 3 second. Abdomen: Soft, round, no pulsatile masses, nondistended and nontender. No rebound, no guarding. No CVA tenderness, no hepatosplenomegaly. Bowel sounds present to all four quadrants. No high pitch or tinkling sounds, resonant to percussion. Extremities: No cyanosis, clubbing, or edema present. Pulses are palpable 2/2. Right arm 5/5, left arm 4/5, lower extremities 5/5 Neuro: Alert and orientated x 4. PERRLA. Cranial nerves 2-12 intact without focal deficit. Skin: Warm, dry, and intact, without rash, erythema, or lesion. Psych: pleasant, cooperative, normal speech, normal affect, no hallucinations, no dysarthia Objective Data Vital Signs Vital Signs: Vital Signs - 24 hr 05/03/25 14:00 05/03/25 16:00 05/03/25 16:52 Temperature 97.5 F L Pulse Rate 75 75 68 Respiratory Rate 18 Blood Pressure 123/83 Pulse Oximetry 95 Oxygen Delivery 05/03/25 20:00 05/03/25 21:07 05/03/25 22:59 Temperature 97.0 F L Pulse Rate 75 66 66 Respiratory Rate 22 H Blood Pressure 131/85 Pulse Oximetry 98 Oxygen Delivery 05/04/25 00:00 05/04/25 05:11 05/04/25 05:33 Temperature 98.0 F Pulse Rate 67 63 63 Respiratory Rate 16 Blood Pressure 124/87 Pulse Oximetry 98 Oxygen Delivery 05/04/25 08:00 05/04/25 08:00 05/04/25 08:52 Temperature Pulse Rate 78 Respiratory Rate Blood Pressure Pulse Oximetry Oxygen Delivery Room Air Room Air 05/04/25 11:24 Temperature Pulse Rate 65 Respiratory Rate Blood Pressure Pulse Oximetry Oxygen Delivery Intake/Output Intake/Output: Intake & Output 05/01/25 05/02/25 05/03/25 05/04/25 23:59 23:59 23:59 23:59 Intake Total 1420 1097.9 Output Total 200 300 Balance 1220 797.9 Meds/Results Medications: Active Medications Generic Name Dose Route Start Last Admin Trade Name Freq PRN Reason Stop Dose Admin Acetaminophen 650 mg 05/03/25 22:47 05/04/25 05:33 Acetaminophen 325 Mg Tablet PO 650 mg Q4H PRN Administration Mild Pain (1-3) or Fever Clonazepam 0.5 mg 05/03/25 17:00 05/04/25 09:19 Clonazepam (*Crx) 0.5 Mg Tablet PO 0.5 mg BID GILDARDO Administration Dextrose 12.5 gm 05/03/25 13:58 Dextrose 50% 25 Gm/50 Ml Syringe IV PUSH PRN PRN Hypoglycemia Protocol Ezetimibe 10 mg 05/04/25 09:00 05/04/25 09:17 Ezetimibe 10 Mg Tablet PO 10 mg DAILY GILDARDO Administration Enoxaparin Sodium 40 mg 05/04/25 09:00 05/04/25 09:19 Enoxaparin 40 Mg/0.4 Ml Syringe SUB-Q 40 mg DAILY GILDARDO Administration Glucagon 1 mg 05/03/25 13:58 Glucagon For Inj 1 Mg Vial IM PRN PRN Hypoglycemia Protocol Glucose 15 gm 05/03/25 13:58 Glucose Oral Gel 15 Gm Of Glucse In 37.5 Gm Tube PO PRN PRN Hypoglycemia Protocol Ceftriaxone Sodium 1 gm in 50 mls @ 100 mls/hr 05/04/25 12:00 05/04/25 11:23 Rocephin 1 Gm/Ns 50 Ml IVPB 100 mls/hr Q24H GILDARDO Administration Lactated Ringer's 1,000 mls @ 125 mls/hr 05/03/25 12:30 05/04/25 04:48 Lr - Lactated Ringers Iv IV CONT 125 mls/hr .Q8H GILDARDO Administration Dextrose 1,000 mls @ 100 mls/hr 05/03/25 13:58 Dextrose 5% 1,000 Ml IVPB PRN PRN Hypoglycemia Protocol Insulin Aspart 2 - 5 units 05/04/25 08:00 05/04/25 12:44 Insulin Aspart (*Bkc) 100 Units/Ml SUB-Q 3 units TIDWM GILDARDO Administration Protocol Lamotrigine 150 mg 05/03/25 21:00 05/04/25 09:17 Lamotrigine 50 Mg Tablet PO 150 mg Q12HR GILDAROD Administration Lisinopril 20 mg 05/04/25 09:00 05/04/25 09:19 Lisinopril 20 Mg Tablet PO 20 mg DAILY GILDARDO Administration Montelukast Sodium 10 mg 05/04/25 09:00 05/04/25 09:19 Montelukast Sodium 10 Mg Tablet PO 10 mg DAILY GILDARDO Administration Nortriptyline HCl 25 mg 05/03/25 21:00 05/03/25 20:44 Nortriptyline Hcl 25 Mg Capsule PO 25 mg QHS GILDARDO Administration Propranolol HCl 40 mg 05/03/25 18:00 05/04/25 11:24 Propranolol Hcl 40 Mg Tablet PO 40 mg Q6HR GILDARDO Administration Quetiapine Fumarate 200 mg 05/04/25 21:00 Quetiapine Fumarate 100 Mg Tablet PO HS [facility] Rosuvastatin Calcium 20 mg 05/04/25 09:00 05/04/25 09:18 Rosuvastatin 20 Mg Tablet PO 20 mg DAILY GILDARDO Administration Radiology Results: ITS Impressions Head CT 05/03/25 10:45 Impression: No significant abnormality seen. Case discussed with Dr. Hale at 10:45 AM on 05/03/2025. Head/Neck CTA 05/03/25 11:11 IMPRESSION: 1. No evident atherosclerotic plaque with 0% stenosis of the right and left carotid bulbs relative to normal distal artery lumen diameter (NASCET criteria). 2. Unremarkable cerebral CT angiogram with no hemodynamically significant stenosis, thrombosis or aneurysm. Chest X-Ray 05/04/25 08:09 IMPRESSION: 1: NO ACUTE CARDIOPULMONARY DISEASE. Labs Labs: Laboratory Results - last 24 hr 05/03/25 05/03/25 05/03/25 12:39 18:29 22:46 WBC RBC Hgb Hct MCV MCH MCHC RDW Plt Count MPV Immature Gran % (Auto) Neut % (Auto) Lymph % (Auto) [place] % (Auto) Eos % (Auto) Baso % (Auto) Lymph # (Auto) [place] # (Auto) Eos # (Auto) Baso # (Auto) Abs Immat Gran (auto) Absolute Neuts (auto) Absolute Nucleated RBC Nucleated RBC % Sodium Potassium Chloride Carbon Dioxide Anion Gap BUN Creatinine Estim Creat Clear Calc Estimated GFR Glucose POC Capillary Glucose 238 H 126 H Calcium TSH (Reflex) 2.110 05/04/25 05/04/25 05/04/25 06:02 07:47 11:51 WBC 8.4 RBC 4.93 Hgb 15.0 Hct 43.6 MCV 88.4 MCH 30.4 MCHC 34.4 RDW 12.1 Plt Count 167 MPV 9.6 Immature Gran % (Auto) 0.7 H Neut % (Auto) 66.1 Lymph % (Auto) 23.3 [place] % (Auto) 7.6 Eos % (Auto) 1.9 Baso % (Auto) 0.4 Lymph # (Auto) 1.96 [place] # (Auto) 0.6 Eos # (Auto) 0.2 Baso # (Auto) 0.0 Abs Immat Gran (auto) 0.06 H Absolute Neuts (auto) 5.6 Absolute Nucleated RBC 0.000 Nucleated RBC % 0.0 Sodium 136 L Potassium 3.8 Chloride 102 Carbon Dioxide 25 Anion Gap 9 BUN 17 Creatinine 0.79 Estim Creat Clear Calc 126 Estimated GFR > 60 Glucose 178 H POC Capillary Glucose 237 H 271 H Calcium 8.6 TSH (Reflex) Quality VTE Prophylaxis VTE prophylaxis: mechanical ordered and pharmacologic ordered Hospitalist MIPS Advance Care Plan I have confirmed that the patient's Advanced Care Plan is present, code status is documented, or surrogate decision maker is listed in patient medical record.: Yes Medication Reconciliation I have utilized all available resources to obtain, update and review the patients current medications (includes all prescriptions, OTC, herbals, cannabis, and nutritional supplements).: Yes
[2025-05-04] MEDS: ONDANSETRON INJ 4 MG/2 ML VIAL IV PUSH (13:55)
[2025-05-04 16:41] LABS: Glucose Point of Care 245 mg/dl (65-105)
--- NOTE | 2025-05-04 17:07 | PC.NURSE ---
On 05/04/25, the PHYSICAL LABORATORY ASSISTANT, [Jennifer COLLINS ], provided care and completed [employer] documentation on this patient. I have reviewed the PHYSICAL LABORATORY ASSISTANT's documentation and agree with the findings.
--- NOTE | 2025-05-04 17:43 | P.CONNEU_ITS ---
Assessment and Plan Assessment and plan (1) Right middle cerebral artery stroke: Code(s): I63.511 - Cerebral infarction due to unspecified occlusion or stenosis of right middle cerebral artery Status: Acute (2) Migraine headache: Code(s): G43.909 - Migraine, unspecified, not intractable, without status migrainosus Status: Acute (3) Grand mal seizure disorder: Code(s): G40.409 - Other generalized epilepsy and epileptic syndromes, not intractable, without status epilepticus Status: Acute (4) ADHD: Code(s): F90.9 - Attention-deficit hyperactivity disorder, unspecified type Status: Acute (5) Type 2 diabetes mellitus with peripheral neuropathy: Code(s): E11.42 - Type 2 diabetes mellitus with diabetic polyneuropathy Status: Acute (6) Kidney calculus: Code(s): N20.0 - Calculus of kidney Status: Acute Plan Patient is participant in physical therapy speech therapy. Nursing staff are aware of the difficulty swallowing. He has history of diabetes mellitus that would be risk factor. However given his age some workup for further evaluation hypercoagulable state is recommended. I would also suggest to add clopidogrel or Plavix 75 mg daily in addition to aspirin 81 mg a day and continue with rosuvastatin 20 mg a day. I shall be glad to follow up. I discussed with his mother and she is aware Of potential need for rehab. Consult date: 05/04/25 HPI: Carlos Cohn is a 40 year old male With history of diabetes mellitus presented to the hospital with the onset of left hemiplegia. The symptoms occurred During the night and last known well was 11:00 p.m. and when he woke up he had weakness in the left side of the body.. CT angiogram head and neck was performed which did not show any abnormalities. Patient has difficulty in walking but predominantly some dramatic in the left upper limb. He also has some difficulty swallowing and speech. Patient's mother was present at the time of the evaluation. Her mother also suffers from seizure disorder and has been seen at our office. 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 He lives his mother. No history of prior stroke any other vascular The patient also has history of seizure disorder and is currently on lamotrigine 150 mg twice a day. He has not had any seizure for very long time. He has history of headaches and this has been a long-term issue. He is on rizatriptan as-needed basis and on nortriptyline 25 mg at bedtime. Currently the patient on rosuvastatin 20 mg a day and aspirin 81 mg a day. Review of Systems 2 Review of Systems: All systems reviewed & are unremarkable except as noted in HPI and below PMFSH Past Medical History Medical History (Updated 05/04/25 @ 17:50 by Jersey Pineda MD) Right middle cerebral artery stroke History of urinary stone (06/2024) Left ureteral stone Anxiety and depression History of arm fracture left distal radius 04/1990 History of chickenpox 04/1990 Diabetes type 2, controlled Migraine headache ADHD Eczema Reflux gastritis HTN (hypertension) Mentally challenged Surgical History Surgical History History of tonsillectomy (2007) Family History Family History Mother Diabetes mellitus Hypertension Pulmonary embolism Seizure Father Diabetes mellitus Heart disease Hypertension Grandparent Diabetes mellitus Heart disease Hypertension Kidney failure Social History Social History Smoking status: Never smoker Second hand tobacco smoke exposure: No Alcohol intake: never Substance use: never Substance use type: does not use Do You Feel Safe in your Home?: Yes Lack of Transportation: No Lack of Food: Never True Current Housing: I Have Housing Concerned About Future Housing: No Difficulty Paying Gas/Electric Bills: No Difficulty Paying for Meds: No Currently Unemployed: No Education: Don't Know Difficulty w/ Childcare or Family Care: No Living arrangements: with family Occupation/Education: other Gender identity (if verbalized by the patient): Male Spiritual care concerns: No Meds Home Medications and Allergies Home Medications ?Medication ?Instructions ?Recorded ?Confirmed ?Type quetiapine 200 mg tablet (Seroquel) 200 mg PO HS 07/27/22 05/03/25 History lamotrigine 150 mg tablet 150 mg PO BID 02/05/23 05/03/25 History blood-glucose meter (Accu-Chek #1 ea 08/16/23 05/03/25 Rx Merary Plus Meter) blood sugar diagnostic (Accu-Chek #100 strips 10/03/23 05/03/25 Rx Guide test strips) lancets (Accu-Chek Softclix #100 ea 10/03/23 05/03/25 Rx Lancets) rosuvastatin 20 mg tablet 20 mg PO DAILY #90 tabs 08/13/24 05/03/25 Rx lisinopril 20 mg tablet 20 mg PO DAILY #90 tabs 09/10/24 05/03/25 Rx ezetimibe 10 mg tablet 10 mg PO DAILY #90 tabs 10/15/24 05/03/25 Rx glimepiride 2 mg tablet 2 mg PO DAILY #90 tabs 10/15/24 05/03/25 Rx pantoprazole 40 mg tablet,delayed See Rx Instructions .Route 10/15/24 05/03/25 Rx release .COMPLEX #180 tabs clonazepam 0.5 mg tablet 0.5 mg PO BID 12/22/24 05/03/25 History metformin 500 mg tablet,extended 1,000 mg (2 x 500 mg) PO BID #360 01/14/25 05/03/25 Rx release 24 hr tabs montelukast 10 mg tablet 10 mg PO DAILY #90 tabs 03/09/25 05/03/25 Rx (Singulair) nortriptyline 25 mg capsule 25 mg PO QHS #90 caps 03/10/25 05/03/25 Rx eletriptan 40 mg tablet See Rx Instructions PO .COMPLEX 05/03/25 05/03/25 History PRN migraine headache propranolol 160 mg capsule,24 160 mg PO HS 05/03/25 05/03/25 History hr,extended release Allergies Allergy/AdvReac Type Severity Reaction Status Date / Time chlorpheniramine Allergy Unknown Other Verified 05/03/25 15:22 naproxen Allergy Unknown Nose Bleed Verified 05/03/25 15:22 phenylephrine Allergy Unknown Other Verified 05/03/25 15:22 scopolamine Allergy Unknown Other Verified 05/03/25 15:22 ANTICHOLINERGICS,OTHER Allergy Unknown Other Uncoded 05/03/25 15:22 Vital Signs Vital Signs - 24 hr 05/03/25 20:00 05/03/25 21:07 05/03/25 22:59 Temperature 97.0 F L Pulse Rate 75 66 66 Respiratory Rate 22 H Blood Pressure 131/85 Pulse Oximetry 98 Oxygen Delivery 05/04/25 00:00 05/04/25 05:11 05/04/25 05:33 Temperature 98.0 F Pulse Rate 67 63 63 Respiratory Rate 16 Blood Pressure 124/87 Pulse Oximetry 98 Oxygen Delivery 05/04/25 08:00 05/04/25 08:00 05/04/25 08:52 Temperature Pulse Rate 78 Respiratory Rate Blood Pressure Pulse Oximetry Oxygen Delivery Room Air Room Air 05/04/25 11:24 05/04/25 15:03 Temperature 97.0 F L Pulse Rate 65 63 Respiratory Rate 16 Blood Pressure 144/94 H Pulse Oximetry 100 Oxygen Delivery Exam 2 Narrative: Patient awake and alert. He is moderate dysarthria. There is a mild left facial weakness and the tongue slightly deviates to the left side. Visual conn by confrontation are normal. Other cranial nerves within normal limits. There is a mild weakness of the left upper limb however more marked loss of rapid alternating movement of the left hand and weakness in medical insurance clerk. He also has some loss of rapid alternating movement of the left foot the right side although the strength in the left lower limb appears better compared to the left upper limb. Deep tendon reflexes did not show any asymmetry. Tone appears symmetric. Sensory exam is also intact. Remainder of the neurologic examination findings were within acceptable normal limits. Results Labs 05/04/25 06:02 05/04/25 06:02 Labs: Short CBC 05/04/25 Range/Units 06:02 WBC 8.4 (4.5-10.0) K/mm3 Hgb 15.0 (14.0-18.0) g/dL Hct 43.6 (42.0-52.0) % Plt Count 167 (150-375) k/mm3 [facility] 05/04/25 06:02 Sodium 136 L Potassium 3.8 Chloride 102 Carbon Dioxide 25 BUN 17 Creatinine 0.79 Glucose 178 H Calcium 8.6 Imaging Attestation: I personally reviewed and interpreted this imaging study as follows: ( MRI of the brain ) My impression: infarct in the right middle cerebral artery distribution extending to the cortex. Radiologist's impression: Same
[2025-05-04 19:51] LABS: Fibrinogen 303 mg/dl (215-510)
[2025-05-04 20:27] LABS: Vitamin D 25 Hydroxy 53.9 ng/mL
[2025-05-04] MEDS: QUEtiapine FUMARATE 100 MG TABLET 200 MG PO (20:28)
[2025-05-04] MEDS: NORTRIPTYLINE HCL 25 MG CAPSULE PO (20:28)
[2025-05-04 20:57] LABS: Folic Acid 12.4 ng/mL (2.76->20)
[2025-05-04 21:08] LABS: Cholesterol 138 mg/dL (0-200); HDL Direct 39 mg/dL; Triglycerides 153 mg/dL (<150)
[2025-05-04 21:19] LABS: LDL Cholesterol Direct 65 mg/dL
[2025-05-04 22:06] LABS: Glucose Point of Care 220 mg/dl (65-105)
[2025-05-05] VITALS (13 sets, daily range): BP systolic 141–150; BP diastolic 86–91; PULSE 59–76; RESP 20; TEMP 36.1–36.7; O2SAT 96–99
[2025-05-05] MEDS: LACTATED RINGERS 1,000 ML 125 ML IV CONT ×3 (02:26→20:41)
[2025-05-05] MEDS: ACETAMINOPHEN 325 MG TABLET 650 MG PO (06:23)
[2025-05-05] MEDS: PROPRANOLOL HCL 40 MG TABLET PO ×4 (06:23→23:11)
[2025-05-05 07:30] LABS: Hematocrit 41.9 % (42.0-52.0); Hemoglobin 14.4 g/dL (14.0-18.0); Mean Corpuscular HGB Conc 34.4 g/dl (32-36); Mean Corpuscular Hemoglobin 30.3 pg (26-34); Mean Corpuscular Volume 88.2 fl (80-100); Mean Platelet Volume 9.5 fl (7.4-10.4); Platelet Count Result 159 k/mm3 (150-375); Red Blood Count 4.75 M/mm3 (4.6-6.20); Red Cell Distribution Width 11.9 % (11.5-14.5); White Blood Count 7.4 K/mm3 (4.5-10.0)
[2025-05-05 07:45] LABS: Alanine Aminotransferase 41 U/L (6-50); Albumin Level 3.8 g/dL (3.5-5.1); Alkaline Phosphatase 109 U/L (38-126); Anion Gap 9 mmol/L (4-12); Aspartate Amino Transferase 28 U/L (17-59); Bilirubin,Total 1.6 mg/dL (0.2-1.3); Blood Urea Nitrogen 14 mg/dL (9-20); Calcium 8.7 mg/dL (8.4-10.2); Carbon Dioxide 25 mmol/L (22-30); Chloride 101 mmol/L (98-107); Estimated CRCL calculation 139 ml/min; Estimated Glomerular Filt Rate > 60; Glucose 205 mg/dL (65-110); Potassium 3.9 mmol/L (3.4-5.0); Sodium 135 mmol/L (137-145); Total Protein 6.1 g/dL (6.3-8.2)
[2025-05-05 08:10] LABS: Glucose Point of Care 222 mg/dl (65-105)
[2025-05-05] MEDS: MONTELUKAST SODIUM 10 MG TABLET PO (09:45)
[2025-05-05] MEDS: EZETIMIBE 10 MG TABLET PO (09:45)
[2025-05-05] MEDS: lamoTRIgine 50 MG TABLET 150 MG PO ×2 (09:45→20:44)
[2025-05-05] MEDS: ROSUVASTATIN 20 MG TABLET PO (09:45)
[2025-05-05] MEDS: CLOPIDOGREL BISULFATE 75 MG TABLET PO (09:45)
[2025-05-05] MEDS: lisinopriL 20 MG TABLET PO (09:45)
[2025-05-05] MEDS: ENOXAPARIN 40 MG/0.4 ML SYRINGE SUB-Q (09:46)
[2025-05-05] MEDS: clonazePAM (*CRX) 0.5 MG TABLET PO ×2 (09:46→17:28)
[2025-05-05] MEDS: INSULIN ASPART (*BKC) 100 UNITS/ML SUB-Q ×3 (09:47→17:28)
[2025-05-05 12:02] LABS: Glucose Point of Care 237 mg/dl (65-105)
--- NOTE | 2025-05-05 12:24 | PCOTNOTE ---
Attempted to see pt for OT treatment this AM. Pt is currently sleeping in bed with pt's mother present. Pt is able to mumble phrases to communicate with therapist however, is not opening up his eyes. Pt's mother reports that pt currently has a very severe headache that nursing is trying to alleviate with different meds and has been up throughout the night. Due to pt's lethargic and decrease activity tolerance, pt is not appropriate at this time. PAVAN Leger was notified of therapy attempt and will pass along to PAVAN lange due to pt's nurse and sports administrator being unavailable.
[2025-05-05] MEDS: SUMAtriptan SUCCINATE 25 MG TABLET PO ×3 (12:39→20:50)
--- NOTE | 2025-05-05 15:44 | PC.NURSE ---
On 05/05/25, the VICE PRESIDENT SALES, [Jennifer COLLINS ], provided care and completed [employer] documentation on this patient. I have reviewed the VICE PRESIDENT SALES's documentation and agree with the findings.
--- NOTE | 2025-05-05 15:49 | PC.NURSE ---
On 05/05/25, the HANDBELL CHOIR DIRECTOR, [Jennifer COLLINS ], provided care and completed [employer] documentation on this patient. I have reviewed the HANDBELL CHOIR DIRECTOR's documentation and agree with the findings.
[2025-05-05 16:33] LABS: Glucose Point of Care 214 mg/dl (65-105)
--- NOTE | 2025-05-05 16:42 | P.PNIM_ITS ---
Progress Note: A&P Assessment and Plan (1) Acute CVA (cerebrovascular accident): Code(s): I63.9 - Cerebral infarction, unspecified Status: Acute Assessment and Plan: Outside of window for tPA Neurology consult MR brain reveals acute stroke Swallow study by speech. Foods and crushed medications PT OT Aspirin, clopidogrel and rosuvastatin MRI brain:Acute cerebral infarction involving the right middle cerebral artery. Marked enlargement of the pituitary gland, as detailed above. (2) Aspiration pneumonia: Code(s): J69.0 - Pneumonitis due to inhalation of food and vomit Status: Acute Assessment and Plan: Atelectasis versus pneumonia on chest x-ray read however it appears to be and right lower lobe were aspiration pneumonia is most likely Patient has failed bedside swallow Pureed Diet crush meds Repeat chest x-ray in a.m. Blood cultures pending Continue Rocephin, azithromycin changed to doxy due to patient being on Seroquel (3) HTN (hypertension): Code(s): I10 - Essential (primary) hypertension Status: Acute Assessment and Plan: Continue lisinopril (4) Diabetes type 2, controlled: Code(s): E11.9 - Type 2 diabetes mellitus without complications Status: Acute Assessment and Plan: Puree Diet A.cAlexsandra HS Accu-Cheks SSI Hold oral metformin (5) Grand mal seizure disorder: Code(s): G40.409 - Other generalized epilepsy and epileptic syndromes, not intractable, without status epilepticus Status: Acute Assessment and Plan: Continue Klonopin and nortriptyline Plan Unable to crush Flomax willing to restart once patient is able swallow whole pills Subjective Date/time seen: 05/05/25 16:42 Interval history: Patient has a progressive dysphagia. Discussed with the mother who wanted G- tube placement. Advised for aggressive speech therapy and physical therapy. Ordered MBS tomorrow. MRI of the brain reveals acute stroke. Patient is currently on aspirin, Plavix and statin. Review of Systems Review of Systems: 12 systems were reviewed and are negativ e except for as per HPI. Exam Narrative: General: well appearing, appears stated age. HEENT: normocephalic, atraumatic. Mucous membranes moist. EOMI, PERRLA, bilateral sclera anicteric, no conjunctival injection. Neck supple without JVD, lymphadenopathy, or bruit. Asymmetrical smile, dysarthria Respiratory: clear to ascultation bilaterally. No rales/rhonic/wheezes. Cardiovascular: Regular rate and rhythm, normal S1-S2 upon ascultation. No murmurs, rubs, or clicks. PMI is nondisplaced, capillary refill less than 3 second. Abdomen: Soft, round, no pulsatile masses, nondistended and nontender. No rebound, no guarding. No CVA tenderness, no hepatosplenomegaly. Bowel sounds present to all four quadrants. No high pitch or tinkling sounds, resonant to percussion. Extremities: No cyanosis, clubbing, or edema present. Pulses are palpable 2/2. Right arm 5/5, left arm 4/5, lower extremities 5/5 Neuro: Alert and orientated x 4. PERRLA. Cranial nerves 2-12 intact without focal deficit. Skin: Warm, dry, and intact, without rash, erythema, or lesion. Psych: pleasant, cooperative, normal speech, normal affect, no hallucinations, no dysarthia Objective Data Vital Signs Vital Signs: Vital Signs - 24 hr 05/04/25 18:13 05/04/25 20:00 05/04/25 20:00 Temperature Pulse Rate 62 62 Respiratory Rate Blood Pressure Pulse Oximetry Oxygen Delivery Room Air 05/04/25 20:49 05/05/25 00:00 05/05/25 04:00 Temperature 97.0 F L Pulse Rate 67 76 66 Respiratory Rate 20 Blood Pressure 141/87 H Pulse Oximetry 99 Oxygen Delivery 05/05/25 06:00 05/05/25 06:23 05/05/25 08:00 Temperature 97.0 F L Pulse Rate 64 68 Respiratory Rate 20 Blood Pressure 141/86 H Pulse Oximetry 99 Oxygen Delivery Room Air 05/05/25 08:00 05/05/25 09:18 05/05/25 12:39 Temperature Pulse Rate 66 63 Respiratory Rate Blood Pressure Pulse Oximetry 98 Oxygen Delivery Room Air 05/05/25 13:40 05/05/25 14:00 Temperature 98.0 F Pulse Rate 59 L Respiratory Rate 20 Blood Pressure 150/91 H Pulse Oximetry 99 96 Oxygen Delivery Intake/Output Intake/Output: Intake & Output 05/02/25 05/03/25 05/04/25 05/05/25 23:59 23:59 23:59 23:59 Intake Total 1420 2147.9 2300 Output Total 200 450 Balance 1220 1697.9 2300 Meds/Results Medications: Active Medications Generic Name Dose Route Start Last Admin Trade Name Freq PRN Reason Stop Dose Admin Acetaminophen 650 mg 05/03/25 22:47 05/05/25 06:23 Acetaminophen 325 Mg Tablet PO 650 mg Q4H PRN Administration Mild Pain (1-3) or Fever Acetaminophen/Butalbital/Caffeine 1 tab 05/05/25 10:55 Acetaminophen/Butalbital/Caffeine 325-50-40 Mg Tablet (Fioricet) PO Q4H PRN Pain Rated 4-6 Aspirin 81 mg 05/06/25 09:00 Aspirin 81 Mg Enteric Tablet PO QAM GILDARDO Clonazepam 0.5 mg 05/03/25 17:00 05/05/25 09:46 Clonazepam (*Crx) 0.5 Mg Tablet PO 0.5 mg BID GILDARDO Administration Clopidogrel Bisulfate 75 mg 05/05/25 09:00 05/05/25 09:45 Clopidogrel Bisulfate 75 Mg Tablet PO 75 mg QAM GILDARDO Administration Dextrose 12.5 gm 05/03/25 13:58 Dextrose 50% 25 Gm/50 Ml Syringe IV PUSH PRN PRN Hypoglycemia Protocol Ezetimibe 10 mg 05/04/25 09:00 05/05/25 09:45 Ezetimibe 10 Mg Tablet PO 10 mg DAILY GILDARDO Administration Enoxaparin Sodium 40 mg 05/04/25 09:00 05/05/25 09:46 Enoxaparin 40 Mg/0.4 Ml Syringe SUB-Q 40 mg DAILY GILDARDO Administration Glucagon 1 mg 05/03/25 13:58 Glucagon For Inj 1 Mg Vial IM PRN PRN Hypoglycemia Protocol Glucose 15 gm 05/03/25 13:58 Glucose Oral Gel 15 Gm Of Glucse In 37.5 Gm Tube PO PRN PRN Hypoglycemia Protocol Ceftriaxone Sodium 1 gm in 50 mls @ 100 mls/hr 05/04/25 12:00 05/05/25 12:40 Rocephin 1 Gm/Ns 50 Ml IVPB 100 mls/hr Q24H GILDARDO Administration Lactated Ringer's 1,000 mls @ 125 mls/hr 05/03/25 12:30 05/05/25 11:00 Lr - Lactated Ringers Iv IV CONT 125 mls/hr .Q8H GILDARDO Administration Dextrose 1,000 mls @ 100 mls/hr 05/03/25 13:58 Dextrose 5% 1,000 Ml IVPB PRN PRN Hypoglycemia Protocol Insulin Aspart 2 - 5 units 05/04/25 08:00 05/05/25 12:40 Insulin Aspart (*Bkc) 100 Units/Ml SUB-Q 2 units TIDWM GILDARDO Administration Protocol Lamotrigine 150 mg 05/03/25 21:00 05/05/25 09:45 Lamotrigine 50 Mg Tablet PO 150 mg Q12HR GILDARDO Administration Lisinopril 20 mg 05/04/25 09:00 05/05/25 09:45 Lisinopril 20 Mg Tablet PO 20 mg DAILY GILDARDO Administration Montelukast Sodium 10 mg 05/04/25 09:00 05/05/25 09:45 Montelukast Sodium 10 Mg Tablet PO 10 mg DAILY GILDARDO Administration Nortriptyline HCl 25 mg 05/03/25 21:00 05/04/25 20:28 Nortriptyline Hcl 25 Mg Capsule PO 25 mg QHS GILDARDO Administration Ondansetron HCl 4 mg 05/04/25 13:43 05/04/25 13:55 Ondansetron Inj 4 Mg/2 Ml Vial IV PUSH 4 mg Q6H PRN Administration Nausea And Vomiting Propranolol HCl 40 mg 05/03/25 18:00 05/05/25 12:39 Propranolol Hcl 40 Mg Tablet PO 40 mg Q6HR GILDARDO Administration Quetiapine Fumarate 200 mg 05/04/25 21:00 05/04/25 20:28 Quetiapine Fumarate 100 Mg Tablet PO 200 mg HS GILDARDO Administration Rosuvastatin Calcium 20 mg 05/04/25 09:00 05/05/25 09:45 Rosuvastatin 20 Mg Tablet PO 20 mg DAILY GILDARDO Administration Sumatriptan Succinate 25 mg 05/05/25 11:22 05/05/25 12:39 Sumatriptan Succinate 25 Mg Tablet PO 25 mg Q2H PRN Administration Migraine Headache Radiology Results: ITS Impressions Head CT 05/03/25 10:45 Impression: No significant abnormality seen. Case discussed with Dr. Hale at 10:45 AM on 05/03/2025. Head/Neck CTA 05/03/25 11:11 IMPRESSION: 1. No evident atherosclerotic plaque with 0% stenosis of the right and left carotid bulbs relative to normal distal artery lumen diameter (NASCET criteria). 2. Unremarkable cerebral CT angiogram with no hemodynamically significant stenosis, thrombosis or aneurysm. Chest X-Ray 05/04/25 08:09 IMPRESSION: 1: NO ACUTE CARDIOPULMONARY DISEASE. Brain MRI 05/04/25 17:11 IMPRESSION: Acute cerebral infarction involving the right middle cerebral artery. Marked enlargement of the pituitary gland, as detailed above. Labs Labs: Laboratory Results - last 24 hr 05/04/25 05/04/25 05/04/25 19:31 19:32 19:59 WBC RBC Hgb Hct MCV MCH MCHC RDW Plt Count MPV Fibrinogen 303 Sodium Potassium Chloride Carbon Dioxide Anion Gap BUN Creatinine Estim Creat Clear Calc Estimated GFR Glucose POC Capillary Glucose 220 H Calcium Total Bilirubin AST ALT Alkaline Phosphatase Total Protein Albumin Triglycerides 153 H Cholesterol 138 LDL Cholesterol Direct 65 HDL Direct 39 Vitamin B12 943.0 H Vitamin D 25-Hydroxy 53.9 Folate 12.4 05/05/25 05/05/25 05/05/25 06:49 08:06 11:57 WBC 7.4 RBC 4.75 Hgb 14.4 Hct 41.9 L MCV 88.2 MCH 30.3 MCHC 34.4 RDW 11.9 Plt Count 159 MPV 9.5 Fibrinogen Sodium 135 L Potassium 3.9 Chloride 101 Carbon Dioxide 25 Anion Gap 9 BUN 14 Creatinine 0.71 Estim Creat Clear Calc 139 Estimated GFR > 60 Glucose 205 H POC Capillary Glucose 222 H 237 H Calcium 8.7 Total Bilirubin 1.6 H AST 28 ALT 41 Alkaline Phosphatase 109 Total Protein 6.1 L Albumin 3.8 Triglycerides Cholesterol LDL Cholesterol Direct HDL Direct Vitamin B12 Vitamin D 25-Hydroxy Folate 05/05/25 16:19 WBC RBC Hgb Hct MCV MCH MCHC RDW Plt Count MPV Fibrinogen Sodium Potassium Chloride Carbon Dioxide Anion Gap BUN Creatinine Estim Creat Clear Calc Estimated GFR Glucose POC Capillary Glucose 214 H Calcium Total Bilirubin AST ALT Alkaline Phosphatase Total Protein Albumin Triglycerides Cholesterol LDL Cholesterol Direct HDL Direct Vitamin B12 Vitamin D 25-Hydroxy Folate Quality VTE Prophylaxis VTE prophylaxis: mechanical ordered and pharmacologic ordered Hospitalist MIPS Advance Care Plan I have confirmed that the patient's Advanced Care Plan is present, code status is documented, or surrogate decision maker is listed in patient medical record.: Yes Medication Reconciliation I have utilized all available resources to obtain, update and review the patients current medications (includes all prescriptions, OTC, herbals, cannabis, and nutritional supplements).: Yes
--- NOTE | 2025-05-05 16:56 | PCSTNOTE ---
Therapist entered room and attempted to see patient however patient was asleep, mother was present and requested therapist not awaken patient. Appr. 3:30-3:45. Mother reported that patient's swallowing had worsened since the day before, unable to move applesauce with crushed meds to the back to swallow in spite of him throwing his head back. He expectorated the pills. Drooling and loss of saliva persists. Able to swallow liquids only when throwing head back in extension. Some coughing is being noted now. Mother requested patient have g-tube placed for consistent nutrition and hydration. Therapist notified hospitalist concerning mother's request for g-tube placement and therapist requested Modified Barium Swallow study tomorrow to further assess risk for aspiration and to determine safest positioning and compensatory strategies to prevent aspiration. Physician voiced agreement with MBS and will speak with mother concerning nutrition/hydration options.
[2025-05-05 20:41] LABS: Glucose Point of Care 169 mg/dl (65-105)
[2025-05-05] MEDS: QUEtiapine FUMARATE 100 MG TABLET 200 MG PO (20:43)
[2025-05-05] MEDS: NORTRIPTYLINE HCL 25 MG CAPSULE PO (20:44)
[2025-05-06] VITALS (11 sets, daily range): BP systolic 134–162; BP diastolic 84–95; PULSE 54–71; RESP 16–24; TEMP 36.3–36.9; O2SAT 96–100
[2025-05-06] MEDS: LACTATED RINGERS 1,000 ML 125 ML IV CONT ×2 (05:06→17:40)
[2025-05-06] MEDS: PROPRANOLOL HCL 40 MG TABLET PO ×4 (06:40→23:05)
[2025-05-06 07:48] LABS: Glucose Point of Care 145 mg/dl (65-105)
[2025-05-06] MEDS: ROSUVASTATIN 20 MG TABLET PO (08:53)
[2025-05-06] MEDS: lamoTRIgine 50 MG TABLET 150 MG PO ×2 (08:53→22:10)
[2025-05-06] MEDS: ASPIRIN 81 MG ENTERIC TABLET PO (08:53)
[2025-05-06] MEDS: EZETIMIBE 10 MG TABLET PO (08:53)
[2025-05-06] MEDS: MONTELUKAST SODIUM 10 MG TABLET PO (08:54)
[2025-05-06] MEDS: clonazePAM (*CRX) 0.5 MG TABLET PO ×2 (08:54→17:37)
[2025-05-06] MEDS: lisinopriL 20 MG TABLET PO (08:54)
[2025-05-06] MEDS: ENOXAPARIN 40 MG/0.4 ML SYRINGE SUB-Q (08:54)
[2025-05-06] MEDS: CLOPIDOGREL BISULFATE 75 MG TABLET PO (08:54)
--- NOTE | 2025-05-06 09:24 | P.PNIM_ITS ---
Progress Note: A&P Assessment and Plan (1) Acute CVA (cerebrovascular accident): Code(s): I63.9 - Cerebral infarction, unspecified Status: Acute Assessment and Plan: Outside of window for tPA Neurology consult MR brain reveals acute stroke Swallow study by speech. Foods and crushed medications PT OT Aspirin, clopidogrel and rosuvastatin MRI brain:Acute cerebral infarction involving the right middle cerebral artery. Marked enlargement of the pituitary gland, as detailed above. (2) Aspiration pneumonia: Code(s): J69.0 - Pneumonitis due to inhalation of food and vomit Status: Acute Assessment and Plan: Atelectasis versus pneumonia on chest x-ray read however it appears to be and right lower lobe were aspiration pneumonia is most likely Patient has failed bedside swallow Pureed Diet crush meds Repeat chest x-ray in a.m. Blood cultures pending Continue Rocephin, azithromycin changed to doxy due to patient being on Seroquel (3) HTN (hypertension): Code(s): I10 - Essential (primary) hypertension Status: Acute Assessment and Plan: Continue lisinopril (4) Diabetes type 2, controlled: Code(s): E11.9 - Type 2 diabetes mellitus without complications Status: Acute Assessment and Plan: Puree Diet A.cAlexsandra HS Accu-Cheks SSI Hold oral metformin (5) Grand mal seizure disorder: Code(s): G40.409 - Other generalized epilepsy and epileptic syndromes, not intractable, without status epilepticus Status: Acute Assessment and Plan: Continue Klonopin and nortriptyline Plan Unable to crush Flomax willing to restart once patient is able swallow whole pills Subjective Date/time seen: 05/06/25 09:24 Interval history: Patient needs physical therapy, OT and speech therapy upon discharge. Hypercoagulable workup is pending. Patient is admitted in the setting of acute CVA. Patient has a past medical history of diabetes, hypertension, hyperlipidemia. Review of Systems Review of Systems: 12 systems were reviewed and are negativ e except for as per HPI. Exam Narrative: General: well appearing, appears stated age. HEENT: normocephalic, atraumatic. Mucous membranes moist. EOMI, PERRLA, bilateral sclera anicteric, no conjunctival injection. Neck supple without JVD, lymphadenopathy, or bruit. Asymmetrical smile, dysarthria Respiratory: clear to ascultation bilaterally. No rales/rhonic/wheezes. Cardiovascular: Regular rate and rhythm, normal S1-S2 upon ascultation. No murmurs, rubs, or clicks. PMI is nondisplaced, capillary refill less than 3 second. Abdomen: Soft, round, no pulsatile masses, nondistended and nontender. No rebound, no guarding. No CVA tenderness, no hepatosplenomegaly. Bowel sounds present to all four quadrants. No high pitch or tinkling sounds, resonant to percussion. Extremities: No cyanosis, clubbing, or edema present. Pulses are palpable 2/2. Right arm 5/5, left arm 4/5, lower extremities 5/5 Neuro: Alert and orientated x 4. PERRLA. Cranial nerves 2-12 intact without focal deficit. Skin: Warm, dry, and intact, without rash, erythema, or lesion. Psych: pleasant, cooperative, normal speech, normal affect, no hallucinations, no dysarthia Objective Data Vital Signs Vital Signs: Vital Signs - 24 hr 05/05/25 12:00 05/05/25 12:39 05/05/25 13:40 Temperature Pulse Rate 66 63 Respiratory Rate Blood Pressure Pulse Oximetry 99 Oxygen Delivery 05/05/25 14:00 05/05/25 16:00 05/05/25 17:28 Temperature 98.0 F Pulse Rate 59 L 63 60 Respiratory Rate 20 Blood Pressure 150/91 H Pulse Oximetry 96 Oxygen Delivery 05/05/25 20:00 05/05/25 20:00 05/06/25 00:00 Temperature 98.4 F Pulse Rate 63 67 Respiratory Rate 16 Blood Pressure 140/93 H Pulse Oximetry 96 100 Oxygen Delivery Room Air 05/06/25 00:00 05/06/25 04:00 05/06/25 05:59 Temperature 97.9 F Pulse Rate 62 62 62 Respiratory Rate 18 Blood Pressure 134/95 H Pulse Oximetry 96 Oxygen Delivery Intake/Output Intake/Output: Intake & Output 05/03/25 05/04/25 05/05/25 05/06/25 23:59 23:59 23:59 23:59 Intake Total 1420 2147.9 3300 1000 Output Total 200 450 Balance 1220 1697.9 3300 1000 Meds/Results Medications: Active Medications Generic Name Dose Route Start Last Admin Trade Name Freq PRN Reason Stop Dose Admin Acetaminophen 650 mg 05/03/25 22:47 05/05/25 06:23 Acetaminophen 325 Mg Tablet PO 650 mg Q4H PRN Administration Mild Pain (1-3) or Fever Acetaminophen/Butalbital/Caffeine 1 tab 05/05/25 10:55 Acetaminophen/Butalbital/Caffeine 325-50-40 Mg Tablet (Fioricet) PO Q4H PRN Pain Rated 4-6 Aspirin 81 mg 05/06/25 09:00 05/06/25 08:53 Aspirin 81 Mg Enteric Tablet PO 81 mg QAM GILDARDO Administration Clonazepam 0.5 mg 05/03/25 17:00 05/06/25 08:54 Clonazepam (*Crx) 0.5 Mg Tablet PO 0.5 mg BID GILDARDO Administration Clopidogrel Bisulfate 75 mg 05/05/25 09:00 05/06/25 08:54 Clopidogrel Bisulfate 75 Mg Tablet PO 75 mg QAM GILDARDO Administration Dextrose 12.5 gm 05/03/25 13:58 Dextrose 50% 25 Gm/50 Ml Syringe IV PUSH PRN PRN Hypoglycemia Protocol Ezetimibe 10 mg 05/04/25 09:00 05/06/25 08:53 Ezetimibe 10 Mg Tablet PO 10 mg DAILY GILDARDO Administration Enoxaparin Sodium 40 mg 05/04/25 09:00 05/06/25 08:54 Enoxaparin 40 Mg/0.4 Ml Syringe SUB-Q 40 mg DAILY GILDARDO Administration Glucagon 1 mg 05/03/25 13:58 Glucagon For Inj 1 Mg Vial IM PRN PRN Hypoglycemia Protocol Glucose 15 gm 05/03/25 13:58 Glucose Oral Gel 15 Gm Of Glucse In 37.5 Gm Tube PO PRN PRN Hypoglycemia Protocol Ceftriaxone Sodium 1 gm in 50 mls @ 100 mls/hr 05/04/25 12:00 05/05/25 12:40 Rocephin 1 Gm/Ns 50 Ml IVPB 100 mls/hr Q24H GILDARDO Administration Lactated Ringer's 1,000 mls @ 125 mls/hr 05/03/25 12:30 05/06/25 05:06 Lr - Lactated Ringers Iv IV CONT 125 mls/hr .Q8H GILDARDO Administration Dextrose 1,000 mls @ 100 mls/hr 05/03/25 13:58 Dextrose 5% 1,000 Ml IVPB PRN PRN Hypoglycemia Protocol Insulin Aspart 2 - 5 units 05/04/25 08:00 05/06/25 08:52 Insulin Aspart (*Bkc) 100 Units/Ml SUB-Q Not Given TIDWM GILDARDO Protocol Lamotrigine 150 mg 05/03/25 21:00 05/06/25 08:53 Lamotrigine 50 Mg Tablet PO 150 mg Q12HR GILDARDO Administration Lisinopril 20 mg 05/04/25 09:00 05/06/25 08:54 Lisinopril 20 Mg Tablet PO 20 mg DAILY GILDARDO Administration Montelukast Sodium 10 mg 05/04/25 09:00 05/06/25 08:54 Montelukast Sodium 10 Mg Tablet PO 10 mg DAILY GILDARDO Administration Nortriptyline HCl 25 mg 05/03/25 21:00 05/05/25 20:44 Nortriptyline Hcl 25 Mg Capsule PO 25 mg QHS GILDARDO Administration Ondansetron HCl 4 mg 05/04/25 13:43 05/04/25 13:55 Ondansetron Inj 4 Mg/2 Ml Vial IV PUSH 4 mg Q6H PRN Administration Nausea And Vomiting Propranolol HCl 40 mg 05/03/25 18:00 05/06/25 06:40 Propranolol Hcl 40 Mg Tablet PO 40 mg Q6HR GILDARDO Administration Quetiapine Fumarate 200 mg 05/04/25 21:00 05/05/25 20:43 Quetiapine Fumarate 100 Mg Tablet PO 200 mg HS GILDARDO Administration Rosuvastatin Calcium 20 mg 05/04/25 09:00 05/06/25 08:53 Rosuvastatin 20 Mg Tablet PO 20 mg DAILY GILDARDO Administration Sumatriptan Succinate 25 mg 05/05/25 11:22 05/05/25 20:50 Sumatriptan Succinate 25 Mg Tablet PO 25 mg Q2H PRN Administration Migraine Headache Radiology Results: ITS Impressions Head CT 05/03/25 10:45 Impression: No significant abnormality seen. Case discussed with Dr. Hale at 10:45 AM on 05/03/2025. Head/Neck CTA 05/03/25 11:11 IMPRESSION: 1. No evident atherosclerotic plaque with 0% stenosis of the right and left carotid bulbs relative to normal distal artery lumen diameter (NASCET criteria). 2. Unremarkable cerebral CT angiogram with no hemodynamically significant stenosis, thrombosis or aneurysm. Chest X-Ray 05/04/25 08:09 IMPRESSION: 1: NO ACUTE CARDIOPULMONARY DISEASE. Brain MRI 05/04/25 17:11 IMPRESSION: Acute cerebral infarction involving the right middle cerebral artery. Marked enlargement of the pituitary gland, as detailed above. Labs Labs: Laboratory Results - last 24 hr 05/05/25 05/05/25 05/05/25 11:57 16:19 20:27 POC Capillary Glucose 237 H 214 H 169 H 05/06/25 07:22 POC Capillary Glucose 145 H Quality VTE Prophylaxis VTE prophylaxis: mechanical ordered and pharmacologic ordered Hospitalist [facility] Advance Care Plan I have confirmed that the patient's Advanced Care Plan is present, code status is documented, or surrogate decision maker is listed in patient medical record.: Yes Medication Reconciliation I have utilized all available resources to obtain, update and review the patients current medications (includes all prescriptions, OTC, herbals, cannabis, and nutritional supplements).: Yes
--- NOTE | 2025-05-06 09:30 | PCOTNOTE ---
Patient out od the room at this time. Patient went down for a swallow study, will check back.
[2025-05-06 10:17] LABS: Hemoglobin 13.5 g/dL (14.0-18.0); Mean Corpuscular HGB Conc 34.6 g/dl (32-36); Mean Corpuscular Hemoglobin 29.9 pg (26-34); Mean Corpuscular Volume 86.5 fl (80-100); Mean Platelet Volume 9.1 fl (7.4-10.4); Platelet Count Result 145 k/mm3 (150-375); Red Blood Count 4.51 M/mm3 (4.6-6.20); White Blood Count 6.8 K/mm3 (4.5-10.0)
[2025-05-06 10:29] LABS: Alanine Aminotransferase 40 U/L (6-50); Albumin Level 3.6 g/dL (3.5-5.1); Alkaline Phosphatase 104 U/L (38-126); Anion Gap 9 mmol/L (4-12); Aspartate Amino Transferase 35 U/L (17-59); Bilirubin,Total 1.5 mg/dL (0.2-1.3); Blood Urea Nitrogen 11 mg/dL (9-20); Calcium 8.6 mg/dL (8.4-10.2); Carbon Dioxide 24 mmol/L (22-30); Chloride 103 mmol/L (98-107); Estimated CRCL calculation 123 ml/min; Estimated Glomerular Filt Rate > 60; Glucose 206 mg/dL (65-110); Potassium 3.7 mmol/L (3.4-5.0); Sodium 136 mmol/L (137-145); Total Protein 5.9 g/dL (6.3-8.2)
[2025-05-06] MEDS: SUMAtriptan SUCCINATE 25 MG TABLET PO (10:42)
--- NOTE | 2025-05-06 11:43 | WPDNEUROPN ---
Progress Note: A&P Assessment and Plan (1) Right middle cerebral artery stroke: Code(s): I63.511 - Cerebral infarction due to unspecified occlusion or stenosis of right middle cerebral artery Status: Acute (2) Migraine headache: Code(s): G43.909 - Migraine, unspecified, not intractable, without status migrainosus Status: Acute (3) Seizure disorder: Code(s): G40.909 - Epilepsy, unspecified, not intractable, without status epilepticus Status: Acute (4) ADHD: Code(s): F90.9 - Attention-deficit hyperactivity disorder, unspecified type Status: Acute (5) HTN (hypertension): Code(s): I10 - Essential (primary) hypertension Status: Acute (6) Diabetes type 2, controlled: Code(s): E11.9 - Type 2 diabetes mellitus without complications Status: Acute Plan The patient is a undergoing physical therapy and I believe that he will require a period of rehab his seizures and headaches are under control. His LDL was 04/05/2025 was 65 and hence we should continue with the Crestor 20 mg a day and dual antiplatelets. Other parameters such as high B12, folic acid level and vitamin-D year within normal range. I reviewed the findings of the MRI and a CT angiogram head and neck and agree with the findings. Subjective Date/time seen: 05/06/25 11:43 Interval history: The patient is 40-year-old with history of diabetes mellitus and new onset of left hemiparesis. His MRI of the brain did show an infarct in the right middle cerebral artery distribution which appears moderately large but no mass effect. She also has mild static encephalopathy. CT angiogram head and neck did not show any significant abnormalities. Patient has been stable for the point to blood pressure. He is currently on clopidogrel 75 mg a day , aspirin 81 mg a day and rosuvastatin 20 mg a day. He denies any additional new symptoms. Review of Systems Review of Systems: All systems reviewed & are unremarkable except as noted in HPI and below Exam Narrative: Fully conscious alert and cooperative. Examination of cranial nerves reveal left facial weakness. No visual field loss. Facial sensation was intact. Other cranial nerves were grossly within normal limits. He would not stick out tongue today. There is a mild weakness of the left upper limb. The weakness in the lower limb is hardly noticeable anymore. No spasticity. No involuntary movements were noted. Objective Data Vital Signs Vital Signs: Vital Signs - 24 hr 05/05/25 12:00 05/05/25 12:39 05/05/25 13:40 Temperature Pulse Rate 66 63 Respiratory Rate Blood Pressure Pulse Oximetry 99 Oxygen Delivery 05/05/25 14:00 05/05/25 16:00 05/05/25 17:28 Temperature 98.0 F Pulse Rate 59 L 63 60 Respiratory Rate 20 Blood Pressure 150/91 H Pulse Oximetry 96 Oxygen Delivery 05/05/25 20:00 05/05/25 20:00 05/06/25 00:00 Temperature 98.4 F Pulse Rate 63 67 Respiratory Rate 16 Blood Pressure 140/93 H Pulse Oximetry 96 100 Oxygen Delivery Room Air 05/06/25 00:00 05/06/25 04:00 05/06/25 05:59 Temperature 97.9 F Pulse Rate 62 62 62 Respiratory Rate 18 Blood Pressure 134/95 H Pulse Oximetry 96 Oxygen Delivery 05/06/25 08:00 Temperature Pulse Rate Respiratory Rate Blood Pressure Pulse Oximetry Oxygen Delivery Room Air Intake/Output Intake/Output: Intake & Output 05/03/25 05/04/25 05/05/25 05/06/25 23:59 23:59 23:59 23:59 Intake Total 1420 2147.9 3300 1000 Output Total 200 450 Balance 1220 1697.9 3300 1000 Meds/Results Medications: Active Medications Generic Name Dose Route Start Last Admin Trade Name Freq PRN Reason Stop Dose Admin Acetaminophen 650 mg 05/03/25 22:47 05/05/25 06:23 Acetaminophen 325 Mg Tablet PO 650 mg Q4H PRN Administration Mild Pain (1-3) or Fever Acetaminophen/Butalbital/Caffeine 1 tab 05/05/25 10:55 Acetaminophen/Butalbital/Caffeine 325-50-40 Mg Tablet (Fioricet) PO Q4H PRN Pain Rated 4-6 Aspirin 81 mg 05/06/25 09:00 05/06/25 08:53 Aspirin 81 Mg Enteric Tablet PO 81 mg QAM GILDARDO Administration Clonazepam 0.5 mg 05/03/25 17:00 05/06/25 08:54 Clonazepam (*Crx) 0.5 Mg Tablet PO 0.5 mg BID GILDARDO Administration Clopidogrel Bisulfate 75 mg 05/05/25 09:00 05/06/25 08:54 Clopidogrel Bisulfate 75 Mg Tablet PO 75 mg QAM GILDARDO Administration Dextrose 12.5 gm 05/03/25 13:58 Dextrose 50% 25 Gm/50 Ml Syringe IV PUSH PRN PRN Hypoglycemia Protocol Ezetimibe 10 mg 05/04/25 09:00 05/06/25 08:53 Ezetimibe 10 Mg Tablet PO 10 mg DAILY GILDARDO Administration Enoxaparin Sodium 40 mg 05/04/25 09:00 05/06/25 08:54 Enoxaparin 40 Mg/0.4 Ml Syringe SUB-Q 40 mg DAILY GILDARDO Administration Glucagon 1 mg 05/03/25 13:58 Glucagon For Inj 1 Mg Vial IM PRN PRN Hypoglycemia Protocol Glucose 15 gm 05/03/25 13:58 Glucose Oral Gel 15 Gm Of Glucse In 37.5 Gm Tube PO PRN PRN Hypoglycemia Protocol Ceftriaxone Sodium 1 gm in 50 mls @ 100 mls/hr 05/04/25 12:00 05/05/25 12:40 Rocephin 1 Gm/Ns 50 Ml IVPB 100 mls/hr Q24H GILDARDO Administration Lactated Ringer's 1,000 mls @ 125 mls/hr 05/03/25 12:30 05/06/25 05:06 Lr - Lactated Ringers Iv IV CONT 125 mls/hr .Q8H GILDARDO Administration Dextrose 1,000 mls @ 100 mls/hr 05/03/25 13:58 Dextrose 5% 1,000 Ml IVPB PRN PRN Hypoglycemia Protocol Insulin Aspart 2 - 5 units 05/04/25 08:00 05/06/25 08:52 Insulin Aspart (*Bkc) 100 Units/Ml SUB-Q Not Given TIDWM GILDARDO Protocol Lamotrigine 150 mg 05/03/25 21:00 05/06/25 08:53 Lamotrigine 50 Mg Tablet PO 150 mg Q12HR GILDARDO Administration Lisinopril 20 mg 05/04/25 09:00 05/06/25 08:54 Lisinopril 20 Mg Tablet PO 20 mg DAILY GILDARDO Administration Montelukast Sodium 10 mg 05/04/25 09:00 05/06/25 08:54 Montelukast Sodium 10 Mg Tablet PO 10 mg DAILY GILDARDO Administration Nortriptyline HCl 25 mg 05/03/25 21:00 05/05/25 20:44 Nortriptyline Hcl 25 Mg Capsule PO 25 mg QHS GILDARDO Administration Ondansetron HCl 4 mg 05/04/25 13:43 05/04/25 13:55 Ondansetron Inj 4 Mg/2 Ml Vial IV PUSH 4 mg Q6H PRN Administration Nausea And Vomiting Propranolol HCl 40 mg 05/03/25 18:00 05/06/25 06:40 Propranolol Hcl 40 Mg Tablet PO 40 mg Q6HR GILDARDO Administration Quetiapine Fumarate 200 mg 05/04/25 21:00 05/05/25 20:43 Quetiapine Fumarate 100 Mg Tablet PO 200 mg HS GILDARDO Administration Rosuvastatin Calcium 20 mg 05/04/25 09:00 05/06/25 08:53 Rosuvastatin 20 Mg Tablet PO 20 mg DAILY GILDARDO Administration Sumatriptan Succinate 25 mg 05/05/25 11:22 05/06/25 10:42 Sumatriptan Succinate 25 Mg Tablet PO 25 mg Q2H PRN Administration Migraine Headache Radiology Results: ITS Impressions Head CT 05/03/25 10:45 Impression: No significant abnormality seen. Case discussed with Dr. Hale at 10:45 AM on 05/03/2025. Head/Neck CTA 05/03/25 11:11 IMPRESSION: 1. No evident atherosclerotic plaque with 0% stenosis of the right and left carotid bulbs relative to normal distal artery lumen diameter (NASCET criteria). 2. Unremarkable cerebral CT angiogram with no hemodynamically significant stenosis, thrombosis or aneurysm. Chest X-Ray 05/04/25 08:09 IMPRESSION: 1: NO ACUTE CARDIOPULMONARY DISEASE. Brain MRI 05/04/25 17:11 IMPRESSION: Acute cerebral infarction involving the right middle cerebral artery. Marked enlargement of the pituitary gland, as detailed above. Modified Barium Swallow 05/06/25 10:02 IMPRESSION: Oropharyngeal dysphagia with laryngeal penetration and aspiration with thin liquids. Please correlate with speech pathologist findings and specific feeding recommendations. Labs Labs: Laboratory Results - last 24 hr 05/05/25 05/05/25 05/05/25 11:57 16:19 20:27 WBC RBC Hgb Hct MCV MCH MCHC RDW Plt Count MPV Sodium Potassium Chloride Carbon Dioxide Anion Gap BUN Creatinine Estim Creat Clear Calc Estimated GFR Glucose POC Capillary Glucose 237 H 214 H 169 H Calcium Total Bilirubin AST ALT Alkaline Phosphatase Total Protein Albumin 05/06/25 05/06/25 07:22 10:13 WBC 6.8 RBC 4.51 L Hgb 13.5 L Hct 39.0 L MCV 86.5 MCH 29.9 MCHC 34.6 RDW 12.0 Plt Count 145 L MPV 9.1 Sodium 136 L Potassium 3.7 Chloride 103 Carbon Dioxide 24 Anion Gap 9 BUN 11 Creatinine 0.81 Estim Creat Clear Calc 123 Estimated GFR > 60 Glucose 206 H POC Capillary Glucose 145 H Calcium 8.6 Total Bilirubin 1.5 H AST 35 ALT 40 Alkaline Phosphatase 104 Total Protein 5.9 L Albumin 3.6 Imaging Attestation: I personally reviewed and interpreted this imaging study as follows: ( MRI of the brain) My impression: moderate size infarct in the right middle cerebral artery distribution Radiologist's impression: same
[2025-05-06 11:58] LABS: Glucose Point of Care 190 mg/dl (65-105)
--- NOTE | 2025-05-06 12:18 | PCSTNOTE ---
Please refer to the Bedside Swallow Evaluation in the EMR. Please note, silent aspiration cannot be ruled out at bedside.
--- NOTE | 2025-05-06 13:15 | PCSTNOTE ---
Please refer to the Modified Barium Swallow Evaluation in the EMR. The patient is a 40 year old male referred for an MBS study following a new onset of a CVA with left side weakness and noted concerns for dysphagia based on results of a bedside swallow evaluation. The patient was viewed in a lateral position and evaluated with trials of 5 cc/tsp thin liquid barium, tsp amounts pudding mixed with barium paste, cracker coated with barium paste, 5cc/tsp mildly thick barium and 5cc/tsp amounts moderately thick barium. Oral Stage symptoms included: loss of bolus control, delayed oral transit, premature spillage of the bolus with (thin, mildly thick, and moderately thick) liquids, and reduced A-P lingual movement. Oral Stage symptoms secondary to reduced lingual control, reduced lingual coordination, reduced lingual ROM, Reduced lip closure and labial seal. Pharyngeal Symptoms include: Mild silent aspiration was viewed during the swallow initiation and went below the vocal fold and was not ejected. The patient was unable to clear when cued to cough post swallow. No vallecular or pyriform residual was viewed to remain following completion of the swallow. Silent aspiration tsp thin liquid secondary to reduced laryngeal elevation and reduced laryngeal closure. Additional trace laryngeal penetration was viewed with tsp/5cc trials mildly and moderately thick barium. Material was viewed to enter the airway and eject with completion of the swallow. Trace laryngeal penetration secondary to reduced laryngeal elevation. Finally, trace vallecular residual was noted with pudding mixed with barium paste and cracker coated with barium paste secondary to reduced lingual pressure. Residual was cleared when cued to complete a repeat dry swallow. Recommend: 1. Puree Diet level 4, Extremely thick liquid level 4, Upright for all meals, food presented to right side, small bite amounts, extra swallow between bites, one on one supervision, check for oral residual. Crushed medication.
[2025-05-06 16:35] LABS: Glucose Point of Care 156 mg/dl (65-105)
[2025-05-06 22:06] LABS: Glucose Point of Care 139 mg/dl (65-105)
[2025-05-06] MEDS: QUEtiapine FUMARATE 100 MG TABLET 200 MG PO (22:12)
[2025-05-06] MEDS: NORTRIPTYLINE HCL 25 MG CAPSULE PO (22:12)
[2025-05-06] MEDS: MELATONIN 5 MG TABLET PO (22:24)
[2025-05-07] VITALS (9 sets, daily range): BP systolic 110–161; BP diastolic 65–96; PULSE 56–75; RESP 12–24; TEMP 35.8–36.9; O2SAT 96–100
[2025-05-07] MEDS: ONDANSETRON INJ 4 MG/2 ML VIAL IV PUSH (03:10)
[2025-05-07 06:35] LABS: Hematocrit 41.4 % (42.0-52.0); Hemoglobin 14.1 g/dL (14.0-18.0); Mean Corpuscular HGB Conc 34.1 g/dl (32-36); Mean Corpuscular Hemoglobin 30.3 pg (26-34); Mean Corpuscular Volume 88.8 fl (80-100); Mean Platelet Volume 9.5 fl (7.4-10.4); Platelet Count Result 154 k/mm3 (150-375); Red Blood Count 4.66 M/mm3 (4.6-6.20); White Blood Count 6.7 K/mm3 (4.5-10.0)
[2025-05-07] MEDS: PROPRANOLOL HCL 40 MG TABLET PO ×3 (06:50→16:46)
[2025-05-07 06:52] LABS: Alanine Aminotransferase 38 U/L (6-50); Alkaline Phosphatase 103 U/L (38-126); Anion Gap 11 mmol/L (4-12); Aspartate Amino Transferase 33 U/L (17-59); Bilirubin,Total 1.7 mg/dL (0.2-1.3); Blood Urea Nitrogen 12 mg/dL (9-20); Calcium 8.9 mg/dL (8.4-10.2); Carbon Dioxide 22 mmol/L (22-30); Chloride 103 mmol/L (98-107); Estimated CRCL calculation 137 ml/min; Estimated Glomerular Filt Rate > 60; Glucose 156 mg/dL (65-110); Potassium 3.7 mmol/L (3.4-5.0); Sodium 136 mmol/L (137-145); Total Protein 6.2 g/dL (6.3-8.2)
[2025-05-07 08:04] LABS: Glucose Point of Care 146 mg/dl (65-105)
[2025-05-07] MEDS: lamoTRIgine 50 MG TABLET 150 MG PO (08:44)
[2025-05-07] MEDS: EZETIMIBE 10 MG TABLET PO (08:44)
[2025-05-07] MEDS: ROSUVASTATIN 20 MG TABLET PO (08:44)
[2025-05-07] MEDS: CLOPIDOGREL BISULFATE 75 MG TABLET PO (08:44)
[2025-05-07] MEDS: lisinopriL 20 MG TABLET PO (08:44)
[2025-05-07] MEDS: clonazePAM (*CRX) 0.5 MG TABLET PO ×2 (08:44→16:45)
[2025-05-07] MEDS: ASPIRIN 81 MG ENTERIC TABLET PO (08:45)
[2025-05-07] MEDS: MONTELUKAST SODIUM 10 MG TABLET PO (08:45)
[2025-05-07] MEDS: ENOXAPARIN 40 MG/0.4 ML SYRINGE SUB-Q (08:45)
[2025-05-07 11:22] LABS: Glucose Point of Care 156 mg/dl (65-105)
[2025-05-07 12:03] LABS: Homocysteine 6.6 umol/L (< or = 13.5)
[2025-05-07] MEDS: SUMAtriptan SUCCINATE 25 MG TABLET PO (12:38)
[2025-05-07] MEDS: LACTATED RINGERS 1,000 ML 125 ML IV CONT (12:42)
--- NOTE | 2025-05-07 14:45 | P.PNIM_ITS ---
Progress Note: A&P Assessment and Plan (1) Acute CVA (cerebrovascular accident): Code(s): I63.9 - Cerebral infarction, unspecified Status: Acute Assessment and Plan: Outside of window for tPA Neurology consult MR brain reveals acute stroke Swallow study by speech. Foods and crushed medications PT OT Aspirin, clopidogrel and rosuvastatin MRI brain:Acute cerebral infarction involving the right middle cerebral artery. Marked enlargement of the pituitary gland, as detailed above. (2) Aspiration pneumonia: Code(s): J69.0 - Pneumonitis due to inhalation of food and vomit Status: Acute Assessment and Plan: Atelectasis versus pneumonia on chest x-ray read however it appears to be and right lower lobe were aspiration pneumonia is most likely Patient has failed bedside swallow Pureed Diet crush meds Repeat chest x-ray in a.m. Blood cultures pending Continue Rocephin, azithromycin changed to doxy due to patient being on Seroquel (3) HTN (hypertension): Code(s): I10 - Essential (primary) hypertension Status: Acute Assessment and Plan: Continue lisinopril (4) Diabetes type 2, controlled: Code(s): E11.9 - Type 2 diabetes mellitus without complications Status: Acute Assessment and Plan: Puree Diet A.cAlexsandra HS Accu-Cheks SSI Hold oral metformin (5) Grand mal seizure disorder: Code(s): G40.409 - Other generalized epilepsy and epileptic syndromes, not intractable, without status epilepticus Status: Acute Assessment and Plan: Continue Klonopin and nortriptyline Plan Unable to crush Flomax willing to restart once patient is able swallow whole pills Subjective Date/time seen: 05/07/25 14:45 Interval history: Patient will be discharged rehab. Ordered KUB to rule out bowel obstruction Review of Systems Review of Systems: 12 systems were reviewed and are negativ e except for as per HPI. Exam Narrative: General: well appearing, appears stated age. HEENT: normocephalic, atraumatic. Mucous membranes moist. EOMI, PERRLA, bilateral sclera anicteric, no conjunctival injection. Neck supple without JVD, lymphadenopathy, or bruit. Asymmetrical smile, dysarthria Respiratory: clear to ascultation bilaterally. No rales/rhonic/wheezes. Cardiovascular: Regular rate and rhythm, normal S1-S2 upon ascultation. No murmurs, rubs, or clicks. PMI is nondisplaced, capillary refill less than 3 second. Abdomen: Soft, round, no pulsatile masses, nondistended and nontender. No rebound, no guarding. No CVA tenderness, no hepatosplenomegaly. Bowel sounds present to all four quadrants. No high pitch or tinkling sounds, resonant to percussion. Extremities: No cyanosis, clubbing, or edema present. Pulses are palpable 2/2. Right arm 5/5, left arm 4/5, lower extremities 5/5 Neuro: Alert and orientated x 4. PERRLA. Cranial nerves 2-12 intact without focal deficit. Skin: Warm, dry, and intact, without rash, erythema, or lesion. Psych: pleasant, cooperative, normal speech, normal affect, no hallucinations, no dysarthia Objective Data Vital Signs Vital Signs: Vital Signs - 24 hr 05/06/25 16:00 05/06/25 17:37 05/06/25 18:00 Temperature 97.6 F Pulse Rate 56 L 66 54 L Respiratory Rate 18 Blood Pressure 160/85 H Pulse Oximetry 99 Oxygen Delivery 05/06/25 20:00 05/06/25 20:00 05/06/25 22:14 Temperature 97.8 F Pulse Rate 57 L 56 L Respiratory Rate 24 H Blood Pressure 140/84 Pulse Oximetry 100 Oxygen Delivery Room Air 05/07/25 00:00 05/07/25 00:00 05/07/25 04:55 Temperature 97.6 F 97.8 F Pulse Rate 60 75 61 Respiratory Rate 12 24 H Blood Pressure 110/65 161/83 H Pulse Oximetry 96 98 Oxygen Delivery 05/07/25 08:00 05/07/25 11:51 05/07/25 12:29 Temperature 98.5 F 97.4 F L Pulse Rate 63 57 L 57 L Respiratory Rate 16 16 Blood Pressure 148/90 H 142/95 H Pulse Oximetry 96 97 Oxygen Delivery Intake/Output Intake/Output: Intake & Output 05/04/25 05/05/25 05/06/25 05/07/25 23:59 23:59 23:59 23:59 Intake Total 2147.9 3350 2180 1000 Output Total 450 300 Balance 1697.9 3350 2180 700 Meds/Results Medications: Active Medications Generic Name Dose Route Start Last Admin Trade Name Freq PRN Reason Stop Dose Admin Acetaminophen 650 mg 05/03/25 22:47 05/05/25 06:23 Acetaminophen 325 Mg Tablet PO 650 mg Q4H PRN Administration Mild Pain (1-3) or Fever Acetaminophen/Butalbital/Caffeine 1 tab 05/05/25 10:55 Acetaminophen/Butalbital/Caffeine 325-50-40 Mg Tablet (Fioricet) PO Q4H PRN Pain Rated 4-6 Aspirin 81 mg 05/06/25 09:00 05/07/25 08:45 Aspirin 81 Mg Enteric Tablet PO 81 mg QAM GILDARDO Administration Clonazepam 0.5 mg 05/03/25 17:00 05/07/25 08:44 Clonazepam (*Crx) 0.5 Mg Tablet PO 0.5 mg BID GILDARDO Administration Clopidogrel Bisulfate 75 mg 05/05/25 09:00 05/07/25 08:44 Clopidogrel Bisulfate 75 Mg Tablet PO 75 mg QAM GILDARDO Administration Dextrose 12.5 gm 05/03/25 13:58 Dextrose 50% 25 Gm/50 Ml Syringe IV PUSH PRN PRN Hypoglycemia Protocol Ezetimibe 10 mg 05/04/25 09:00 05/07/25 08:44 Ezetimibe 10 Mg Tablet PO 10 mg DAILY GILDARDO Administration Enoxaparin Sodium 40 mg 05/04/25 09:00 05/07/25 08:45 Enoxaparin 40 Mg/0.4 Ml Syringe SUB-Q 40 mg DAILY GILDARDO Administration Glucagon 1 mg 05/03/25 13:58 Glucagon For Inj 1 Mg Vial IM PRN PRN Hypoglycemia Protocol Glucose 15 gm 05/03/25 13:58 Glucose Oral Gel 15 Gm Of Glucse In 37.5 Gm Tube PO PRN PRN Hypoglycemia Protocol Lactated Ringer's 1,000 mls @ 125 mls/hr 05/03/25 12:30 05/07/25 12:42 Lr - Lactated Ringers Iv IV CONT 125 mls/hr .Q8H GILDARDO Administration Dextrose 1,000 mls @ 100 mls/hr 05/03/25 13:58 Dextrose 5% 1,000 Ml IVPB PRN PRN Hypoglycemia Protocol Insulin Aspart 2 - 5 units 05/04/25 08:00 05/07/25 12:29 Insulin Aspart (*Bkc) 100 Units/Ml SUB-Q Not Given TIDWM GILDARDO Protocol Lamotrigine 150 mg 05/03/25 21:00 05/07/25 08:44 Lamotrigine 50 Mg Tablet PO 150 mg Q12HR GILDARDO Administration Lisinopril 20 mg 05/04/25 09:00 05/07/25 08:44 Lisinopril 20 Mg Tablet PO 20 mg DAILY GILDARDO Administration Melatonin 5 mg 05/06/25 22:18 05/06/25 22:24 Melatonin 5 Mg Tablet PO 5 mg HS PRN Administration Sleep Montelukast Sodium 10 mg 05/04/25 09:00 05/07/25 08:45 Montelukast Sodium 10 Mg Tablet PO 10 mg DAILY GILDARDO Administration Nortriptyline HCl 25 mg 05/03/25 21:00 05/06/25 22:12 Nortriptyline Hcl 25 Mg Capsule PO 25 mg QHS GILDARDO Administration Ondansetron HCl 4 mg 05/04/25 13:43 05/07/25 03:10 Ondansetron Inj 4 Mg/2 Ml Vial IV PUSH 4 mg Q6H PRN Administration Nausea And Vomiting Propranolol HCl 40 mg 05/03/25 18:00 05/07/25 12:29 Propranolol Hcl 40 Mg Tablet PO 40 mg Q6HR GILDARDO Administration Quetiapine Fumarate 200 mg 05/04/25 21:00 05/06/25 22:12 Quetiapine Fumarate 100 Mg Tablet PO 200 mg HS GILDARDO Administration Rosuvastatin Calcium 20 mg 05/04/25 09:00 05/07/25 08:44 Rosuvastatin 20 Mg Tablet PO 20 mg DAILY GILDARDO Administration Sumatriptan Succinate 25 mg 05/05/25 11:22 05/07/25 12:38 Sumatriptan Succinate 25 Mg Tablet PO 25 mg Q2H PRN Administration Migraine Headache Radiology Results: ITS Impressions Head CT 05/03/25 10:45 Impression: No significant abnormality seen. Case discussed with Dr. Hale at 10:45 AM on 05/03/2025. Head/Neck CTA 05/03/25 11:11 IMPRESSION: 1. No evident atherosclerotic plaque with 0% stenosis of the right and left carotid bulbs relative to normal distal artery lumen diameter (NASCET criteria). 2. Unremarkable cerebral CT angiogram with no hemodynamically significant stenosis, thrombosis or aneurysm. Chest X-Ray 05/04/25 08:09 IMPRESSION: 1: NO ACUTE CARDIOPULMONARY DISEASE. Brain MRI 05/04/25 17:11 IMPRESSION: Acute cerebral infarction involving the right middle cerebral artery. Marked enlargement of the pituitary gland, as detailed above. Modified Barium Swallow 05/06/25 10:02 IMPRESSION: Oropharyngeal dysphagia with laryngeal penetration and aspiration with thin liquids. Please correlate with speech pathologist findings and specific feeding recommendations. Labs Labs: Laboratory Results - last 24 hr 05/04/25 05/06/25 05/06/25 19:31 16:32 19:49 WBC RBC Hgb Hct MCV MCH MCHC RDW Plt Count MPV Sodium Potassium Chloride Carbon Dioxide Anion Gap BUN Creatinine Estim Creat Clear Calc Estimated GFR Glucose POC Capillary Glucose 156 H 139 H Calcium Total Bilirubin AST ALT Alkaline Phosphatase Total Protein Albumin Homocysteine 6.6 05/07/25 05/07/25 05/07/25 06:08 07:35 10:58 WBC 6.7 RBC 4.66 Hgb 14.1 Hct 41.4 L MCV 88.8 MCH 30.3 MCHC 34.1 RDW 12.0 Plt Count 154 MPV 9.5 Sodium 136 L Potassium 3.7 Chloride 103 Carbon Dioxide 22 Anion Gap 11 BUN 12 Creatinine 0.72 Estim Creat Clear Calc 137 Estimated GFR > 60 Glucose 156 H POC Capillary Glucose 146 H 156 H Calcium 8.9 Total Bilirubin 1.7 H AST 33 ALT 38 Alkaline Phosphatase 103 Total Protein 6.2 L Albumin 4.0 Homocysteine Quality VTE Prophylaxis VTE prophylaxis: mechanical ordered and pharmacologic ordered Hospitalist MIPS Advance Care Plan I have confirmed that the patient's Advanced Care Plan is present, code status is documented, or surrogate decision maker is listed in patient medical record.: Yes Medication Reconciliation I have utilized all available resources to obtain, update and review the patients current medications (includes all prescriptions, OTC, herbals, cannabis, and nutritional supplements).: Yes
--- NOTE | 2025-05-07 15:30 | P.DS_ITS ---
DS: Admitting Diagnosis Discharge Date 0 05/07/2025 Admitting Diagnosis Suspected CVA DS: Discharge Diagnosis Discharge Diagnosis (1) Acute CVA (cerebrovascular accident): Code(s): I63.9 - Cerebral infarction, unspecified Status: Acute Assessment and Plan: Please refer to hospital course for brief summary Outside of window for tPA Neurology consult MR brain reveals acute stroke Swallow study by speech. Foods and crushed medications PT OT Aspirin, clopidogrel and rosuvastatin MRI brain:Acute cerebral infarction involving the right middle cerebral artery. Marked enlargement of the pituitary gland, as detailed above. (2) Aspiration pneumonia: Code(s): J69.0 - Pneumonitis due to inhalation of food and vomit Status: Acute Assessment and Plan: Atelectasis versus pneumonia on chest x-ray read however it appears to be and right lower lobe were aspiration pneumonia is most likely Patient has failed bedside swallow Pureed Diet crush meds Repeat chest x-ray in a.m. Blood cultures pending Continue Rocephin, azithromycin changed to doxy due to patient being on Seroquel Completed antibiotic course (3) HTN (hypertension): Code(s): I10 - Essential (primary) hypertension Status: Acute Assessment and Plan: Continue lisinopril (4) Diabetes type 2, controlled: Code(s): E11.9 - Type 2 diabetes mellitus without complications Status: Acute Assessment and Plan: Puree Diet A.c. HS Accu-Cheks SSI Hold oral metformin Upon discharge will continue metformin (5) Grand mal seizure disorder: Code(s): G40.409 - Other generalized epilepsy and epileptic syndromes, not intractable, without status epilepticus Status: Acute Assessment and Plan: Continue Klonopin and nortriptyline DS: Summary Hospital Course Hospital Course: 40-year-old male past medical history of diabetes type 2, ADHD, hypertension and mentally challenged presents the hospital with left-sided facial droop and left arm weakness. Last seen wall was 11:00 p.m. last night. Patient woke up this morning and family knows of left facial droop and left arm weakness and brought him to the hospital. Patient states that he was in an able to drink this morning or take his pills. He states that normally has no issues with swallowing or his left arm mobility. Denies fever chills Lab work shows sodium of 133, glucose 324, TSH pending. CT have no acute find ings, CTA no acute findings,No evident atherosclerotic plaque with 0% stenosis of the right and left carotid bulbs relative to normal distal artery lumen diameter (NASCET criteria). EKG shows sinus rhythm with borderline T-wave abnormalities rate of 67. Chest x-ray shows infiltrates possibly atelectasis versus pneumonia. Patient underwent MRI which showed Acute cerebral infarction involving the right middle cerebral artery. Marked enlargement of the pituitary gland Neurology was consulted. Patient has major risk factor for CVA including diabetes, hypertension and hyperlipidemia. Patient hypercoagulable state workup is pending. Patient needs to closely follow-up with Neurology. Patient needs to have physical therapy, occupational therapy and speech therapy. On the day of discharge, the patient was seen and examined. Vital signs were stable. Physical exam were stable and labs were reviewed at length. Discharge instructions, medications, and follow-up appointments were discussed with the patient at length and all day questions were answered. ER warnings were given. Status at Discharge Cognitive/behavioral status at discharge: stable Time Spent with Patient Time attestation: Total time spent providing and/or coordinating discharge services: 45 minute Exam Narrative: General: well appearing, appears stated age. HEENT: normocephalic, atraumatic. Mucous membranes moist. EOMI, PERRLA, bilateral sclera anicteric, no conjunctival injection. Neck supple without JVD, lymphadenopathy, or bruit. Asymmetrical smile, dysarthria Respiratory: clear to ascultation bilaterally. No rales/rhonic/wheezes. Cardiovascular: Regular rate and rhythm, normal S1-S2 upon ascultation. No murmurs, rubs, or clicks. PMI is nondisplaced, capillary refill less than 3 second. Abdomen: Soft, round, no pulsatile masses, nondistended and nontender. No rebound, no guarding. No CVA tenderness, no hepatosplenomegaly. Bowel sounds present to all four quadrants. No high pitch or tinkling sounds, resonant to percussion. Extremities: No cyanosis, clubbing, or edema present. Pulses are palpable 2/2. Right arm 5/5, left arm 4/5, lower extremities 5/5 Neuro: Alert and orientated x 4. PERRLA. Cranial nerves 2-12 intact without focal deficit. Skin: Warm, dry, and intact, without rash, erythema, or lesion. Psych: pleasant, cooperative, normal speech, normal affect, no hallucinations, no dysarthia DS: Data Data Completed and Pending Labs on day of discharge: Labs from last 24 hours 05/07/25 05/07/25 05/07/25 10:58 07:35 06:08 WBC 6.7 RBC 4.66 Hgb 14.1 Hct 41.4 L MCV 88.8 MCH 30.3 MCHC 34.1 RDW 12.0 Plt Count 154 MPV 9.5 Sodium 136 L Potassium 3.7 Chloride 103 Carbon Dioxide 22 Anion Gap 11 BUN 12 Creatinine 0.72 Estim Creat Clear Calc 137 Estimated GFR > 60 Glucose 156 H POC Capillary Glucose 156 H 146 H Calcium 8.9 Total Bilirubin 1.7 H AST 33 ALT 38 Alkaline Phosphatase 103 Total Protein 6.2 L Albumin 4.0 Homocysteine 05/06/25 05/06/25 05/04/25 19:49 16:32 19:31 WBC RBC Hgb Hct MCV MCH MCHC RDW Plt Count MPV Sodium Potassium Chloride Carbon Dioxide Anion Gap BUN Creatinine Estim Creat Clear Calc Estimated GFR Glucose POC Capillary Glucose 139 H 156 H Calcium Total Bilirubin AST ALT Alkaline Phosphatase Total Protein Albumin Homocysteine 6.6 Preliminary micro results at discharge 05/03/25 12:40 Blood Culture - Preliminary Blood 05/03/25 12:39 Blood Culture - Preliminary Blood Imaging Radiologist's impression: ITS Impressions Head CT 05/03/25 10:45 Impression: No significant abnormality seen. Case discussed with Dr. Hale at 10:45 AM on 05/03/2025. Head/Neck CTA 05/03/25 11:11 IMPRESSION: 1. No evident atherosclerotic plaque with 0% stenosis of the right and left carotid bulbs relative to normal distal artery lumen diameter (NASCET criteria). 2. Unremarkable cerebral CT angiogram with no hemodynamically significant stenosis, thrombosis or aneurysm. Chest X-Ray 05/03/25 11:12 Impression: 1: Bibasilar infiltrates may represent atelectasis or less likely pneumonia. Chest X-Ray 05/04/25 08:09 IMPRESSION: 1: NO ACUTE CARDIOPULMONARY DISEASE. Brain MRI 05/04/25 17:11 IMPRESSION: Acute cerebral infarction involving the right middle cerebral artery. Marked enlargement of the pituitary gland, as detailed above. Modified Barium Swallow 05/06/25 10:02 IMPRESSION: Oropharyngeal dysphagia with laryngeal penetration and aspiration with thin liquids. Please correlate with speech pathologist findings and specific feeding recommendations. Abdomen X-Ray 05/07/25 14:49 IMPRESSION: NO ACUTE ABDOMINAL FINDINGS. Fecal material seen in the right side of the colon which may indicate constipation. Discharge Plan Discharge Attending physician on discharge: Schuyler Lynn Consulting providers: Jersey Pineda Discharging Clinician: Schuyler Lynn Anticipated Discharge Date/Time: 05/07/25 15:52 Patient Disposition: [facility] Activity: as tolerated Diet: heart healthy and diabetic Discharge Instructions: Needs physical therapy, occupation therapy and speech therapy Check blood pressure 1 to 2 times a day. Record and bring into your doctor for review. Call your doctor if your blood pressure is greater than 180/110 or less than 90/45. Walk with cane or other assist device. Take precautions to avoid falls. Rise slowly from a lying or sitting position. Pause before standing or walking. Contact your doctor or call 911 and come to the Emergency Room if you have any type of trauma, lightheadedness with standing or other worrisome symptoms. Avoid NSAIDs (ibuprofen, naproxen, Aleve). Tylenol is safe to take. Follow-up with your primary care provider in 1-2 weeks. Please call for appointment. Follow-up with neurology in 2-4 weeks. Please call for an appointment. Thank you for using [facility] for your health care needs. Patient Instructions: Antibiotic Form Patient Language: Mohawk Stand Alone Forms: General Discharge Information Follow-up/Referrals: Jersey Pineda MD [Physician] - Earnest Santos MD [Primary Care Provider] - Discharge Medications: New aspirin 81 mg Tablet,Delayed Release (Dr/Ec) 81 mg PO QAM Qty: 30 0RF clopidogrel 75 mg Tablet 75 mg PO QAM Qty: 30 0RF Continued quetiapine [Seroquel] 200 mg tablet 200 mg PO HS clonazepam 0.5 mg tablet 0.5 mg PO BID lamotrigine 150 mg tablet 150 mg PO BID (DME) blood-glucose meter [Accu-Chek Merary Plus Meter] Misc See Rx Instructions .Route Qty: 1 0RF Rx Instructions: two times daily propranolol 160 mg capsule,extended release 24 hr 160 mg PO HS eletriptan 40 mg tablet See Rx Instructions PO .COMPLEX PRN (Reason: migraine headache) Rx Instructions: take 1 tab at onset of headache; if no relief, may repeat 1 tab after at least 2 hrs; max = 2 tabs/24 hrs orally PRN; (DME) Accu-Chek Guide test strips Strip See Rx Instructions .ROUTE .COMPLEX Qty: 100 0RF Dose Instruction: USE TO TEST BLOOD SUGAR TWICE DAILY Rx Instructions: USE TO TEST BLOOD SUGAR TWICE DAILY (DME) lancets [Accu-Chek Softclix Lancets] Misc See Rx Instructions .ROUTE .COMPLEX Qty: 100 12RF Dose Instruction: USE TO TEST BLOOD SUGAR TWICE DAILY Rx Instructions: USE TO TEST BLOOD SUGAR TWICE DAILY rosuvastatin 20 mg tablet 20 mg PO DAILY Qty: 90 2RF lisinopril 20 mg tablet 20 mg PO DAILY Qty: 90 2RF ezetimibe 10 mg tablet 10 mg PO DAILY Qty: 90 2RF glimepiride 2 mg tablet 2 mg PO DAILY Qty: 90 2RF pantoprazole 40 mg tablet,delayed release (DR/EC) See Rx Instructions .ROUTE .COMPLEX Qty: 180 2RF Dose Instruction: TAKE 1 TABLET BY MOUTH TWICE DAILY Rx Instructions: TAKE 1 TABLET BY MOUTH TWICE DAILY metformin 500 mg tablet extended release 24 hr 1,000 mg PO BID Qty: 360 1RF montelukast [Singulair] 10 mg tablet 10 mg PO DAILY Qty: 90 3RF nortriptyline 25 mg capsule 25 mg PO QHS Qty: 90 0RF Date of admission: 05/04/25 10:33 Primary Care Provider: Earnest Santos Admitting Provider: Fabien Jameson Attending physician on admission: Fabien Jameson Condition: Stable
[2025-05-07 16:57] LABS: Glucose Point of Care 132 mg/dl (65-105)
[2025-05-07 19:59] LABS: Lupus dRVVT Screen 36 sec (< OR = 45); PTT-LA Screen 36 sec (< OR = 40)
[2025-05-07 21:34] LABS: Immunofixation, Serum Normal pattern.
[2025-05-08 04:38] LABS: APC Ratio 5.3 ratio (>=2.1)
[2025-05-08 06:13] LABS: Anti Cardio Antibody IgM <2.0 MPL-U/mL; Anti Cardiolipin Antibody IgA <2.0 APL-U/mL; Anti Cardiolipin Antibody IgG <2.0 GPL-U/mL
[2025-05-08 14:18] LABS: Lipoprotein A 46 nmol/L
[2025-05-08 23:18] LABS: Antithrombin III Activity 146 % normal (80-135)
== END 2025-05-07 18:15 | DRG 64 ==
LOC: ANHED 12:13 → ANH3MEDSUR 13:19
PROVIDERS: Nurse Practitioner Gerontology; Psychiatry & Neurology Neurology; Admitting Provider Internal Medicine; Emergency Provider Emergency Medicine; PCP Family Medicine Adolescent Medicine; Visit Provider General Practice
DX: I63.511 Cerebral infarction due to unspecified occlusion or stenosis of right middle cerebral artery (principal); J69.0 Pneumonitis due to inhalation of food and vomit; G81.94 Hemiplegia, unspecified affecting left nondominant side; I10 Essential (primary) hypertension; E11.9 Type 2 diabetes mellitus without complications; K21.9 Gastro-esophageal reflux disease without esophagitis; R29.709 NIHSS score 9; G40.409 Other generalized epilepsy and epileptic syndromes, not intractable, without status epilepticus; F41.9 Anxiety disorder, unspecified; F32.A Depression, unspecified; F90.9 Attention-deficit hyperactivity disorder, unspecified type; F79 Unspecified intellectual disabilities; G43.909 Migraine, unspecified, not intractable, without status migrainosus
CPT/HCPCS: 36415; 70450; 70496; 70498; 70551; 71045; 71046; 74018; 80048; 80053; 80061; 81240; 81241; 82306; 82607; 82746; 82948; 83090; 83695; 83735; 84443; 84484; 85025; 85027; 85300; 85303; 85306; 85307; 85384; 85610; 85613; 85730; 86147; 86334; 87040; 92526; 92610; 92611; 93005; 96365; 96368; 96372; 96375; 97110; 97116; 97161; 97166; 97530; 97535; 99285; A9270; G0378; J0456; J0696; J1650; J1815; J2405; J7120; Q9967

== ENCOUNTER 2025-07-29 15:17 | Inpatient (IN) | payer MEDICARE, MEDICAID, SELFPAY ==
[2025-07-29] VITALS (16 sets, daily range): BP systolic 120–130; BP diastolic 86–102; PULSE 75–87; RESP 14–30; TEMP 36.4–37; O2SAT 95–99; BMI 28.8
--- NOTE | ~2025-07-29 | MR_ITS ---
EXAMINATION: MR brain/brain stem wo/w con DATE: 07/30/2025 12:02 INDICATION: Stroke TECHNIQUE: Magnetic resonance imaging (MRI) of the brain and brainstem was performed without and with 15 mL Multihance intravenous contrast. Sequences included sagittal and axial T1-weighted SE, axial diffusion-weighted FS SE, axial 3D SWAN, axial T2-weighted FLAIR, and axial T2-weighted FSE. Postcontrast axial and coronal T1-weighted SE was obtained. Apparent diffusion coefficient (ADC) maps were created. COMPARISON: Brain MR dated 05/03/[address] dated 07/29/2025 FINDINGS: There is a moderate-sized region of encephalomalacia with volume the insula and right frontal lobe at the site of a previously acute infarct. There is some curvilinear enhancement within the region of infarct consistent with evolving secondary cortical laminar necrosis. There are no areas of restricted diffusion to suggest acute infarction. No intracranial hemorrhage or abnormal intracranial mass lesion. There are no intraparenchymal signal abnormalities seen on the other pulse sequences. The ventricles are symmetric and normal in size. There are no abnormal extra-axial fluid collections. Flow voids are seen in the cerebral arteries on the T2-weighted sequences consistent with their expected patency. Visualized orbits and soft tissues are unremarkable. There are no other areas of abnormal enhancement on the post contrast images. IMPRESSION: 1. 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 2. Otherwise normal brain with no acute intracranial process or other abnormally enhancing brain lesions. Reviewed, dictated and finalized at location A. IMPRESSION: 1. Evolving early chronic infarct with encephalomalacia and curvilinear enhanci ng cortical laminar necrosis involving the right insula and portions of the pos terior right frontal lobe. 2. Otherwise normal brain with no acute intracranial process or other abnormall y enhancing brain lesions.
--- NOTE | ~2025-07-29 | CT_ITS ---
EXAMINATION: CTA brain carotid DATE: 07/29/2025 17:50 CDT INDICATION: CVA TECHNIQUE: Computed tomographic angiography (CTA) of the head was performed without and with 100 mL Omnipaque-350 intravenous contrast. CTA of the neck was performed with intravenous contrast. The dose-length product was 1806.24 mGy-cm. Maximum intensity projection and volume rendered 3D-reconstructions were created by the technologist on a separate workstation. COMPARISON: MRI brain dated 05/03/2025 and CTA brain/carotid dated 05/03/2025. FINDINGS: HEAD CTA: There is a chronic right parietal infarction no ventriculomegaly or midline shift. No acute infarction, hemorrhage, mass or mass effect. Normal riojas-white differentiation. Paranasal sinuses and mastoids are pneumatized. No depressed skull fractures. There are codominant vertebral arteries. There is no evidence of significant stenosis, thrombosis or aneurysm of the intracranial arteries. NECK CTA: The aortic arch is grossly unremarkable. The origins of the carotid and vertebral arteries are widely patent. No evidence for significant stenosis or dissection within the carotid arteries. There is 0% stenosis of the proximal right internal carotid artery relative to normal distal artery lumen diameter (NASCET criteria). There is 0% stenosis of the proximal left internal carotid artery relative to normal distal artery lumen diameter. IMPRESSION: 1: Chronic right parietal infarction. 2: Unremarkable CT angiogram of the head and neck. Reviewed, dictated and finalized at location O.
--- NOTE | 2025-07-29 15:58 | ECG_ITS ---
Test Date: 2025-07-29 16:34:06 Measurements Intervals [place] Rate: 83 P: 27 MI: 194 QRS: 0 QRSD: 129 T: 21 QT: 390 QTc: 459 Interpretive Statements SINUS RHYTHM MODERATE INTRAVENTRICULAR CONDUCTION DELAY [110+ ms QRS DURATION] BORDERLINE ECG Compared to ECG 05/03/2025 22:54:17 No significant changes Electronically Signed On 07-31-2025 15:21:43 CDT by Ranjit Cardenas M.D.
[2025-07-29 16:17] LABS: Hematocrit 41.8 % (42.0-52.0); Hemoglobin 14.2 g/dL (14.0-18.0); Immature Granulocyte Percent A 0.4 % (0-0.5); Lymphocytes Absolute Auto 1.69 K/mm3 (0.9-3.2); Mean Corpuscular HGB Conc 34.0 g/dl (32-36); Mean Corpuscular Hemoglobin 30.4 pg (26-34); Mean Corpuscular Volume 89.5 fl (80-100); Nucleated Red Blood Cells Absolute Auto 0.000 K/mm3 (0.0-0.012); Nucleated Red Blood Cells Perc 0.0 % (0.0-0.2); Platelet Count Result 153 k/mm3 (150-375); Red Blood Count 4.67 M/mm3 (4.6-6.20); White Blood Count 5.2 K/mm3 (4.5-10.0)
[2025-07-29 16:29] LABS: INR 1.0; Partial Thromboplastin Time 29.4 Seconds (22.3-36.8); Prothrombin Time 13.4 Seconds (11.1-14.7)
[2025-07-29 16:42] LABS: Alanine Aminotransferase 27 U/L (6-50); Albumin Level 4.1 g/dL (3.5-5.1); Alkaline Phosphatase 75 U/L (38-126); Anion Gap 7 mmol/L (4-12); Aspartate Amino Transferase 25 U/L (17-59); Bilirubin,Total 1.6 mg/dL (0.2-1.3); Blood Urea Nitrogen 13 mg/dL (9-20); Calcium 8.8 mg/dL (8.4-10.2); Carbon Dioxide 27 mmol/L (22-30); Chloride 106 mmol/L (98-107); Estimated CRCL calculation 110 ml/min; Estimated Glomerular Filt Rate > 60; Glucose 136 mg/dL (65-110); Potassium 4.2 mmol/L (3.4-5.0); Sodium 140 mmol/L (137-145); Total Protein 6.2 g/dL (6.3-8.2)
--- NOTE | 2025-07-29 17:19 | ED.GENADULT ---
HPI - General Adult General Chief complaint: Neuro Symptoms/Deficit Stated complaint: left arm deficit, LKN last night Time Seen by Provider: 07/29/25 15:58 History of Present Illness HPI narrative: 40-year-old male present to the emergency department for evaluation for worsening left-sided deficit. Patient does have a prior history of CVA and did have some residual deficit on the left side including some left facial droop left arm and left leg weakness. Patient states he woke up this morning and was unable to move his left hand. Patient states he had these persistent symptoms until he arrived to [facility]. Mother states that the left-sided facial droop is worse than normal. Patient follows up with Dr. Pineda Related Data Home Medications ?Medication ?Instructions ?Recorded ?Confirmed ?Last Taken ?Type quetiapine 200 mg tablet (Seroquel) 200 mg PO HS 07/27/22 07/18/25 Unknown History clonazepam 0.5 mg tablet 0.5 mg PO HS 12/22/24 07/18/25 05/02/25 History Allergies Allergy/AdvReac Type Severity Reaction Status Date / Time chlorpheniramine Allergy Unknown Other Verified 07/18/25 10:08 naproxen Allergy Unknown Nose Bleed Verified 07/18/25 10:08 phenylephrine Allergy Unknown Other Verified 07/18/25 10:08 scopolamine Allergy Unknown Other Verified 07/18/25 10:08 ANTICHOLINERGICS,OTHER Allergy Unknown Other Uncoded 07/18/25 10:08 Review of Systems Review of Systems: All systems reviewed & are unremarkable except as noted in HPI and below PMFSH Past Medical History Medical History BMI 30.0-30.9,adult Seizure disorder Right middle cerebral artery stroke History of urinary stone (06/2024) Left ureteral stone Anxiety and depression History of arm fracture left distal radius 04/1990 History of chickenpox 04/1990 Diabetes type 2, controlled Migraine headache ADHD Eczema Reflux gastritis HTN (hypertension) Mentally challenged Surgical History Surgical History History of tonsillectomy (2007) Family History Family History Mother Diabetes mellitus Hypertension Pulmonary embolism Seizure Father Diabetes mellitus Heart disease Hypertension Grandparent Diabetes mellitus Heart disease Hypertension Kidney failure Social History Social History Smoking status: Never smoker Second hand tobacco smoke exposure: No Alcohol intake: never Substance use: never Substance use type: does not use and prescription drug Do You Feel Safe in your Home?: Yes Lack of Transportation: No Lack of Food: Never True Current Housing: I Have Housing Concerned About Future Housing: No Difficulty Paying Gas/Electric Bills: No Difficulty Paying for Meds: No Currently Unemployed: No Education: High School Diploma/GED Difficulty w/ Childcare or Family Care: No Living arrangements: with family Occupation/Education: unemployed Gender identity (if verbalized by the patient): Male Spiritual care concerns: No Exam Narrative: APPEARANCE: Well appearing, no pain, no distress, well-nourished. HEAD: normocephalic, atraumatic. EYES: PERRLA/EOMI, conjunctivae clear. NOSE: Normal no drainage EARS:TMS clear with good light reflex. THROAT: Pharynx clear, no exudate. NECK: Supple. No adenopathy, no masses. RESPIRATORY: Airway patent, respirations nonlabored. Clear to auscultation bilaterally, no rales, rhonchi, wheezing. CARDIOVASCULAR: Regular rate and rhythm without murmurs rubs or gallops. ABDOMINAL: Soft, nontender, nondistended, normal bowel sounds MUSCULOSKELETAL: Moves all extremities. Strength/ROM intact, No edema, No calf tenderness. NEURO: Left-sided facial droop worse than normal per family Course Vital Signs Vital signs: Vital Signs Temperature 98.0 F 07/29/25 15:22 Pulse Rate 86 07/29/25 15:22 Respiratory Rate 16 07/29/25 15:22 Blood Pressure 122/86 07/29/25 15:22 Pulse Oximetry 99 07/29/25 15:22 Oxygen Delivery Room Air 07/29/25 15:22 Temperature 97.6 F 07/29/25 15:46 Pulse Rate 83 07/29/25 17:01 Respiratory Rate 27 H 07/29/25 17:01 Blood Pressure 128/86 07/29/25 17:01 Pulse Oximetry 95 07/29/25 17:01 Oxygen Delivery Room Air 07/29/25 15:46 Medical Decision Making MDM Narrative Medical decision making narrative: 40-year-old male presents emergency department for evaluation for left-sided hand weakness that has since resolved, mother still feels the patient has worsened left-sided facial droop. CTA was negative for acute abnormality. Patient is afebrile with no leukocytosis hemoglobin of 14.2. INR is 1.0. No acute abnormalities on the patient's CMP case was discussed with Neurology and they are comfortable the plan for admission for further neuro imaging. Case was discussed with hospitalist patient was advised for admission. Patient family updated the results of the workup plan for admission. Differential Diagnosis Differential Diagnosis: nancy's paralysis, seizure, CVA Vital Signs Vital Signs: Vital Signs Temperature 98.0 F 07/29/25 15:22 Pulse Rate 86 07/29/25 15:22 Respiratory Rate 16 07/29/25 15:22 Blood Pressure 122/86 07/29/25 15:22 Pulse Oximetry 99 07/29/25 15:22 Oxygen Delivery Room Air 07/29/25 15:22 Temperature 97.6 F 07/29/25 15:46 Pulse Rate 83 07/29/25 17:01 Respiratory Rate 27 H 07/29/25 17:01 Blood Pressure 128/86 07/29/25 17:01 Pulse Oximetry 95 07/29/25 17:01 Oxygen Delivery Room Air 07/29/25 15:46 Lab Data Lab results reviewed: Yes I reviewed the patient's lab results. 07/29/25 16:07 07/29/25 16:07 Labs: Lab Results 07/29/25 Range/Units 16:07 WBC 5.2 (4.5-10.0) K/mm3 RBC 4.67 (4.6-6.20) M/mm3 Hgb 14.2 (14.0-18.0) g/dL Hct 41.8 L (42.0-52.0) % MCV 89.5 (80-100) fl MCH 30.4 (26-34) pg MCHC 34.0 (32-36) g/dl RDW 12.4 (11.5-14.5) % Plt Count 153 (150-375) k/mm3 MPV 9.4 (7.4-10.4) fl Immature Gran % (Auto) 0.4 (0-0.5) % Neut % (Auto) 57.8 (45.5-73.1) % Lymph % (Auto) 32.7 (18.3-44.2) % [place] % (Auto) 6.8 (2.6-8.5) % Eos % (Auto) 1.5 (0-4.4) % Baso % (Auto) 0.8 (0.2-1.2) % Lymph # (Auto) 1.69 (0.9-3.2) K/mm3 [place] # (Auto) 0.4 (0.1-0.6) K/mm3 Eos # (Auto) 0.1 (0-0.3) K/mm3 Baso # (Auto) 0.0 (0.0-0.1) K/mm3 Abs Immat Gran (auto) 0.02 (0.00-0.031) K/mm3 Absolute Neuts (auto) 3.0 (1.3-6.7) K/mm3 Absolute Nucleated RBC 0.000 (0.0-0.012) K/mm3 Nucleated RBC % 0.0 (0.0-0.2) % PT 13.4 (11.1-14.7) Seconds INR 1.0 APTT 29.4 (22.3-36.8) Seconds Sodium 140 (137-145) mmol/L Potassium 4.2 (3.4-5.0) mmol/L Chloride 106 (98-107) mmol/L Carbon Dioxide 27 (22-30) mmol/L Anion Gap 7 (4-12) mmol/L BUN 13 (9-20) mg/dL Creatinine 0.91 (0.7-1.3) mg/dL Estim Creat Clear Calc 110 ml/min Estimated GFR > 60 (59 - ) Glucose 136 H (65-110) mg/dL Calcium 8.8 (8.4-10.2) mg/dL Total Bilirubin 1.6 H (0.2-1.3) mg/dL AST 25 (17-59) U/L ALT 27 (6-50) U/L Alkaline Phosphatase 75 (38-126) U/L Total Protein 6.2 L (6.3-8.2) g/dL Albumin 4.1 (3.5-5.1) g/dL Imaging Data Radiologist's impression: Impressions Head/Neck CTA 07/29/25 17:50 IMPRESSION: 1: Chronic right parietal infarction. 2: Unremarkable CT angiogram of the head and neck. Discharge Plan Discharge Clinical Impression: Acute CVA (cerebrovascular accident), Left hand weakness, Facial droop Patient Disposition: Still a Patient Condition: Stable
--- NOTE | 2025-07-29 19:38 | ADMGEN ---
This patient, Carlos Cohn, was admitted to Medical Room 346-01. Patient/family oriented to hospital policies and general routines including ID bracelet, bed and alarms, visiting hours, pain management, procedures, bathroom and other care routines, personal items, smoking policy, room service/diet, and visiting hours. Information on how to activate the Rapid Response Team has been discussed. Patient/Family are encouraged to report perceived risks to care and to ask questions if they do not understand what they are told or what they should do.
[2025-07-29 20:15] LABS: Cholesterol 90 mg/dL (0-200); HDL Direct 39 mg/dL; Magnesium 2.1 mg/dL (1.6-2.3); Triglycerides 69 mg/dL (<150)
[2025-07-29 20:30] LABS: Hemoglobin A1C 6.5 % (<5.7)
[2025-07-29] MEDS: lamoTRIgine 50 MG TABLET 150 MG PO (22:52)
[2025-07-29] MEDS: PROPRANOLOL HCL 60 MG CAPSULE CR 120 MG PO (22:57)
[2025-07-29] MEDS: clonazePAM (*CRX) 0.5 MG TABLET 1 MG PO (22:57)
[2025-07-29] MEDS: NORTRIPTYLINE HCL 25 MG CAPSULE 50 MG PO (22:57)
[2025-07-29] MEDS: PANTOPRAZOLE 40 MG TABLET PO (22:57)
--- NOTE | 2025-07-29 23:22 | PM.IMHP ---
H&P: HPI History of Present Illness Date/Time: 07/29/25 23:22 Chief Complaint: Left upper extremity weakness and facial droop with history of prior CVA Narrative: This is a 40-year-old male patient with a past history of seizure as well as a prior right MCA stroke with left sided residual deficits who was admitted to the hospital today for additional stroke rule out. Patient had worsening left-sided facial droop worsening left upper extremity weakness that seemed to have resolved throughout the day after arrival to ER. Possibly TIA verses additional CVA. Neurology was consulted in the emergency department and requested patient be admitted and MRI obtained. Patient has a history of seizures, prior stroke, type 2 diabetes, hypertension, hyperlipidemia, anxiety and depression, ADHD and developmental delay. Workup in the emergency department with relatively normal labs. CTA head neck obtained with findings of chronic right parietal infarct no acute vessel blockage or other significant findings. Urinalysis will be checked. Patient has a history of seizures and it is possible he had an unwitnessed seizure causing an exacerbation his underlying deficits. Patient admitted for observation to obtain MRI. Also ordered echocardiogram as there is not one on file in this system. Review of Systems Review of Systems: All systems reviewed & are unremarkable except as noted in HPI and below PMFSH Past Medical History Medical History BMI 30.0-30.9,adult Seizure disorder Right middle cerebral artery stroke History of urinary stone (06/2024) Left ureteral stone Anxiety and depression History of arm fracture left distal radius 04/1990 History of chickenpox 04/1990 Diabetes type 2, controlled Migraine headache ADHD Eczema Reflux gastritis HTN (hypertension) Mentally challenged Surgical History Surgical History History of tonsillectomy (2007) Family History Family History Mother Diabetes mellitus Hypertension Pulmonary embolism Seizure Father Diabetes mellitus Heart disease Hypertension Grandparent Diabetes mellitus Heart disease Hypertension Kidney failure Social History Social History Smoking status: Never smoker Second hand tobacco smoke exposure: No Alcohol intake: never Substance use: never Substance use type: does not use and prescription drug Do You Feel Safe in your Home?: Yes Lack of Transportation: No Lack of Food: Never True Current Housing: I Have Housing Concerned About Future Housing: No Difficulty Paying Gas/Electric Bills: No Difficulty Paying for Meds: No Currently Unemployed: No Education: High School Diploma/GED Difficulty w/ Childcare or Family Care: No Living arrangements: with family Occupation/Education: unemployed Gender identity (if verbalized by the patient): Male Spiritual care concerns: No Meds Home Medications and Allergies Home Medications ?Medication ?Instructions ?Recorded ?Confirmed ?Type quetiapine 200 mg tablet (Seroquel) 100 mg PO HS 07/27/22 07/29/25 History clonazepam 0.5 mg tablet 1 mg PO BID 12/22/24 07/29/25 History aspirin 81 mg tablet,delayed 81 mg PO QAM #30 tabs 05/07/25 07/29/25 Rx release acetaminophen 325 mg tablet 650 mg (2 x 325 mg) PO Q6H PRN 05/16/25 07/29/25 Rx Mild Pain (1-3) Or Fever #240 tabs ezetimibe 10 mg tablet 10 mg PO DAILY #30 tabs 05/16/25 07/29/25 Rx glimepiride 2 mg tablet 2 mg PO DAILY #30 tabs 05/16/25 07/29/25 Rx lamotrigine 150 mg tablet 150 mg PO BID #60 tabs 05/16/25 07/29/25 Rx lisinopril 20 mg tablet 20 mg PO DAILY #30 tabs 05/16/25 07/29/25 Rx metformin 500 mg tablet,extended 1,000 mg (2 x 500 mg) PO BID #120 05/16/25 07/29/25 Rx release 24 hr tabs montelukast 10 mg tablet 10 mg PO DAILY #30 tabs 05/16/25 07/29/25 Rx (Singulair) propranolol 60 mg capsule,24 120 mg (2 x 60 mg) PO HS #60 caps 05/16/25 07/29/25 Rx hr,extended release (Inderal LA) sennosides 8.6 mg-docusate sodium 1 tab PO BID #60 tabs 05/16/25 07/29/25 Rx 50 mg tablet (Senokot-S) Held on 07/29/25. Instructions: soft stools nortriptyline 50 mg capsule 50 mg PO QHS #90 caps 06/19/25 07/29/25 Rx rosuvastatin 20 mg tablet 20 mg PO DAILY #90 tabs 07/15/25 07/29/25 Rx pantoprazole 40 mg tablet,delayed See Rx Instructions .Route 07/16/25 07/29/25 Rx release .COMPLEX #180 tabs blood sugar diagnostic (Accu-Chek #100 ea 07/18/25 07/29/25 Rx Guide test strips) blood-glucose meter (Accu-Chek #1 ea 07/18/25 07/29/25 Rx Guide Me Glucose Meter) lancets 28 gauge (Advanced Travel #100 ea 07/18/25 07/29/25 Rx Lancets) rimegepant 75 mg disintegrating 75 mg PO ONCE PRN migraine 07/18/25 07/29/25 Rx tablet (Nurtec ODT) headache #16 tabs trazodone 50 mg tablet 50 mg PO HS 07/29/25 07/29/25 History Allergies Allergy/AdvReac Type Severity Reaction Status Date / Time chlorpheniramine Allergy Unknown Other Verified 07/18/25 10:08 naproxen Allergy Unknown Nose Bleed Verified 07/18/25 10:08 phenylephrine Allergy Unknown Other Verified 07/18/25 10:08 scopolamine Allergy Unknown Other Verified 07/18/25 10:08 ANTICHOLINERGICS,OTHER Allergy Unknown Other Uncoded 07/18/25 10:08 Vital Signs Vital Signs - 24 hr 07/29/25 15:22 07/29/25 15:22 07/29/25 15:46 Temperature 36.7 C 36.4 C Pulse Rate 86 85 85 Respiratory Rate 16 18 17 Blood Pressure 122/86 130/94 H 130/94 H Pulse Oximetry 99 98 97 Oxygen Delivery Room Air Room Air Fraction of Inspired Oxygen 07/29/25 15:52 07/29/25 15:54 07/29/25 16:00 Temperature Pulse Rate 87 87 87 Respiratory Rate 18 14 20 Blood Pressure 130/94 H Pulse Oximetry 97 98 97 Oxygen Delivery Fraction of Inspired Oxygen 07/29/25 16:01 07/29/25 16:20 07/29/25 16:30 Temperature Pulse Rate 86 85 86 Respiratory Rate 16 29 H 30 H Blood Pressure 120/102 H Pulse Oximetry 97 96 97 Oxygen Delivery Fraction of Inspired Oxygen 07/29/25 16:31 07/29/25 16:45 07/29/25 16:46 Temperature Pulse Rate 80 85 87 Respiratory Rate 24 H 27 H 27 H Blood Pressure 127/86 128/86 Pulse Oximetry 97 95 95 Oxygen Delivery Fraction of Inspired Oxygen 07/29/25 17:00 07/29/25 17:01 07/29/25 19:49 Temperature Pulse Rate 82 83 Respiratory Rate 26 H 27 H Blood Pressure 128/86 Pulse Oximetry 95 95 Oxygen Delivery Room Air Fraction of Inspired Oxygen 07/29/25 20:00 07/29/25 20:18 07/29/25 22:00 Temperature 37.0 C Pulse Rate 79 75 77 Respiratory Rate 20 18 Blood Pressure 121/92 H Pulse Oximetry 97 98 Oxygen Delivery Room Air Fraction of Inspired Oxygen 21 Exam Narrative: APPEARANCE: Well appearing, no pain, no distress, well-nourished. HEAD: normocephalic, atraumatic. EYES: PERRLA/EOMI, conjunctivae clear. NOSE: Normal no drainage EARS:TMS clear with good light reflex. THROAT: Pharynx clear, no exudate. NECK: Supple. No adenopathy, no masses. RESPIRATORY: Airway patent, respirations nonlabored. Clear to auscultation bilaterally, no rales, rhonchi, wheezing. CARDIOVASCULAR: Regular rate and rhythm ABDOMINAL: Soft, nontender, nondistended, normal bowel sounds MUSCULOSKELETAL: Moves all extremities. Strength/ROM intact, No edema, No calf tenderness. NEURO: Left-sided facial droop worse than normal per family, left arm weakness worse than usual H&P: Results Labs Labs: Short CBC 07/29/25 Range/Units 16:07 WBC 5.2 (4.5-10.0) K/mm3 Hgb 14.2 (14.0-18.0) g/dL Hct 41.8 L (42.0-52.0) % Plt Count 153 (150-375) k/mm3 BMP 07/29/25 16:07 Sodium 140 Potassium 4.2 Chloride 106 Carbon Dioxide 27 BUN 13 Creatinine 0.91 Glucose 136 H Calcium 8.8 Liver Function 07/29/25 Range/Units 16:07 Total Bilirubin 1.6 H (0.2-1.3) mg/dL AST 25 (17-59) U/L ALT 27 (6-50) U/L Alkaline Phosphatase 75 (38-126) U/L Albumin 4.1 (3.5-5.1) g/dL Pulse Oximetry SpO2 results: 95-98% on room air Attestation: I personally reviewed and interpreted this pulse oximetry as follows: Interpretation: No need for supplemental oxygenation at this time ECG Attestation: I personally reviewed and interpreted this ECG as follows: ECG completion date: 07/29/25 ECG completion time: 16:34 Prior ECG tracings: available for review Interpretation: Sinus rhythm rate of 83 UT interval 194 QRS duration 129 QTC 459 QRS axis 0? moderate intraventricular conduction delay, no STEMI or acute ischemic changes noted Imaging CT scan - head: Radiologist's impression: EXAMINATION: CTA brain carotid DATE: 07/29/2025 17:50 CDT INDICATION: CVA TECHNIQUE: Computed tomographic angiography (CTA) of the head was performed without and with 100 mL Omnipaque-350 intravenous contrast. CTA of the neck was performed with intravenous contrast. The dose-length product was 1806.24 mGy-cm. Maximum intensity projection and volume rendered 3D-reconstructions were created by the technologist on a separate workstation. COMPARISON: MRI brain dated 05/03/2025 and CTA brain/carotid dated 05/03/2025. FINDINGS: HEAD CTA: There is a chronic right parietal infarction no ventriculomegaly or midline shift. No acute infarction, hemorrhage, mass or mass effect. Normal riojas-white differentiation. Paranasal sinuses and mastoids are pneumatized. No depressed skull fractures. There are codominant vertebral arteries. There is no evidence of significant stenosis, thrombosis or aneurysm of the intracranial arteries. NECK CTA: The aortic arch is grossly unremarkable. The origins of the carotid and vertebral arteries are widely patent. No evidence for significant stenosis or dissection within the carotid arteries. There is 0% stenosis of the proximal right internal carotid artery relative to normal distal artery lumen diameter (NASCET criteria). There is 0% stenosis of the proximal left internal carotid artery relative to normal distal artery lumen diameter. IMPRESSION: 1: Chronic right parietal infarction. 2: Unremarkable CT angiogram of the head and neck. Reviewed, dictated and finalized at location O. Assessment and Plan Assessment and plan (1) CVA (cerebral vascular accident): Code(s): I63.9 - Cerebral infarction, unspecified Status: Acute Assessment and Plan: -Prior history of significant stroke with left sided residual deficits -Today patient with worse weakness of LUE and worse facial droop -Symptoms improving on arrival to ER -Neurology consulted and patient admitted for MRI to assess for additional or new area of Stroke (2) Left hemiparesis: Code(s): G81.94 - Hemiplegia, unspecified affecting left nondominant side Status: Acute Assessment and Plan: -See above (3) Seizure disorder: Code(s): G40.909 - Epilepsy, unspecified, not intractable, without status epilepticus Status: Chronic Assessment and Plan: -Left sided weakness earlier today could be related to a seizure though there was none witnessed -Continue home medications (4) Type 2 diabetes mellitus with peripheral neuropathy: Code(s): E11.42 - Type 2 diabetes mellitus with diabetic polyneuropathy Status: Chronic Assessment and Plan: -Hemoglobin A1c 6.5 -Diabetic diet with ACHS fingerstick glucose and low dose SSI -Continue glimepiride but hold metformin (5) HTN (hypertension): Code(s): I10 - Essential (primary) hypertension Status: Chronic Assessment and Plan: -Blood pressure reviewed and no significant intervention required -Continue home medications (6) HLD (hyperlipidemia): Code(s): E78.5 - Hyperlipidemia, unspecified Status: Chronic Assessment and Plan: -Lipid panel shows great control with rosuvastatin and Zetia -Continue home medications Quality VTE Prophylaxis VTE prophylaxis: mechanical ordered Hospitalist MIPS Advance Care Plan I have confirmed that the patient's Advanced Care Plan is present, code status is documented, or surrogate decision maker is listed in patient medical record.: Yes Medication Reconciliation I have utilized all available resources to obtain, update and review the patients current medications (includes all prescriptions, OTC, herbals, cannabis, and nutritional supplements).: Yes
[2025-07-30] VITALS (10 sets, daily range): BP systolic 116–131; BP diastolic 84–96; PULSE 66–80; RESP 18; TEMP 36.5–36.7; O2SAT 97–98
--- NOTE | 2025-07-30 | ECHO_ITS ---
Patient Info Name: Carlos Cohn Age: 40 years : 1985 Gender: Male Ht: 74 in Wt: 223 lbs BSA: 2.32 m2 BP: 116 / 84 mmHg Technical Quality: Fair Exam Date: 07/30/2025 3:13 PM Patient Status: O Admit Date: 07/29/2025 Exam Type: CA echo dop bubble study w con Complete two-dimentional, color flow and Doppler transthoracic echocardiogram is performed with agitated saline and with contrast to opacify the left ventricle and to improve the delineation of the left ventricle endocardial borders. Staff Referring Physician: Ruddy Hale Lab Associate: Adela Hooks Attending Provider: Reyna Hughes Contrast/Agitated Saline Contrast/Ag. Saline: Definity Amount: 2.00 ml Existing IV Access: Yes IV Access Condition: patent with no signs of infiltration Contrast/Ag. Saline: Agitated Saline Amount: 18.00 ml Existing IV Access: Yes IV Access Condition: patent with no signs of infiltration Summary 1. Definity E/e' contrast administered improved wall motion interpretation. 2. Left ventricular chamber dimension is mildly enlarged. 3. Left ventricular systolic function is moderately globally reduced, estimated at 40-45. 4. The left ventricular diastolic function is normal. 5. E/e' 6 s not elevated. 6. Right ventricular chamber dimension is mildly enlarged. 7. Left atrial chamber dimension is mildly enlarged. 8. Agitated saline injection with and without valsalva maneuver opacified right side cardiac chambers with shunt to left side cardiac chambers suggestive of patent foramen ovale. 9. There is mild to moderate mitral valve regurgitation. 10. There is trace tricuspid valve regurgitation. 11. No pulmonary hypertension, estimated pulmonary arterial systolic pressure is 19 mmHg. 12. The aortic root size at the sinus of Valsalva is borderline dilated at 4.1 cm. Left Ventricle Definity E/e' contrast administered improved wall motion interpretation. Left ventricular chamber dimension is mildly enlarged. Left ventricular systolic function is moderately globally reduced, estimated at 40-45. The left ventricular diastolic function is normal. E/e' 6 s not elevated. Right Ventricle Right ventricular chamber dimension is mildly enlarged. Right ventricular systolic function is normal. Left Atria Left atrial chamber dimension is mildly enlarged. Right Atria Right atrial chamber dimension is normal. Atrial Septum Suspected patent foramen ovale visualized by 2D and agitated saline imaging. Agitated saline injection with and without valsalva maneuver opacified right side cardiac chambers with shunt to left side cardiac chambers suggestive of patent foramen ovale. Aortic Valve The aortic valve is trileaflet. There is no aortic valve stenosis. There is no aortic valve regurgitation. Pulmonic Valve There is no pulmonic regurgitation. Mitral Valve There is no mitral valve stenosis. There is mild to moderate mitral valve regurgitation. Tricuspid Valve There is trace tricuspid valve regurgitation. No pulmonary hypertension, estimated pulmonary arterial systolic pressure is 19 mmHg. Pericardium/Pleural There is no pericardial effusion. Inferior Vena Cava Normal inferior vena cava with >50% collapse upon inspiration consistent with normal right atrial pressure, 5 mmHg. Aorta The aortic root size at the sinus of Valsalva is borderline dilated at 4.1 cm. Left Ventricular Outflow Tract Name Value Normal LVOT 2D LVOT Diameter 2.8 cm LVOT Doppler LVOT Peak Velocity 71 cm/s LVOT Peak Gradient 2 mmHg LVOT Mean Gradient 1 mmHg LVOT VTI 14 cm LVOT VTI/AV VTI Ratio 0.7 LVOT Stroke Volume 85 ml LVOT CO 19.4 l/min LVOT CI 8.4 l/min/m2 Pulmonic Valve Name Value Normal PV Doppler PV Peak Velocity 78 cm/s PV Peak Gradient 2 mmHg Mitral Valve Name Value Normal MV Diastolic Function MV E Peak Velocity 60 cm/s MV A Peak Velocity 49 cm/s MV E/A 1.2 MV Decel Time (PW) 244 ms MV Annular TDI MV E/e' (Septal) 7.4 MV E/e' (Lateral) 5.3 MV E/e' (Average) 6.4 Tricuspid Valve Name Value Normal TV Regurgitation Doppler TR Peak Velocity 185 cm/s TR Peak Gradient 13 mmHg Estimated PAP/RSVP RA Pressure 5 mmHg <=5 PA Systolic Pressure 19 mmHg <36 RV Systolic Pressure 19 mmHg <36 TV Annular TDI TV Lateral [place] s' Velocity 9.6 cm/s >=9.5 Aorta Name Value Normal Ascending Aorta Ao Root Diameter (MM) 4.2 cm Ao Root Diam Index (MM) 1.8 cm/m2 Aortic Valve Name Value Normal AV Doppler AV Peak Velocity 91 cm/s AV Peak Gradient 3 mmHg AV Mean Gradient 2 mmHg AV VTI 20 cm AV Area (Cont Eq VTI) 4.3 cm2 >=3.0 AV Area (Cont Eq Alek) 4.7 cm2 AV DI (Alek) 0.78 AV Regurgitation 2D LVOT Area 6.0 cm2 Ventricles Name Value Normal LV Dimensions 2D/MM IVS Diastolic Thickness (2D) 1.0 cm 0.6-1.0 LVID Diastole (2D) 5.2 cm 4.2-5.8 LVIW Diastolic Thickness (2D) 1.1 cm 0.6-1.0 LVID Systole (2D) 4.2 cm 2.5-4.0 LVOT Diameter 2.8 cm LV Mass (2D Cubed) 206.46 g 88.00-224.00 LV Mass Index (2D Cubed) 89 g/m2 49-115 Relative Wall Thickness (2D) 0.43 <=0.42 LV Fractional Shortening/Ejection Fraction 2D/MM LV Fractional Shortening (2D) 19 % 25-43 LV EF (2D Teichholz) 40 % LV Diastolic Volume (4C MOD) 146 ml LV EF (4C MOD) 41 % LV Diastolic Volume (2C MOD) 107 ml LV EF (2C MOD) 48 % LV Diastolic Volume (BP MOD) 126 ml 62-150 LV Diastolic Volume Index (BP MOD) 55 ml/m2 34-74 LV Systolic Volume (BP MOD) 69 ml 21-61 LV Systolic Volume Index (BP MOD) 30 ml/m2 11-31 LV EF (BP MOD) 45 % 52-72 LV Diastolic Length (4C) 9.1 cm LV Systolic Length (4C) 7.7 cm LV Stroke Volume (4C MOD) 60 ml RV Dimensions 2D/MM RVID Diastole (2D) 4.3 cm 2.1-3.5 Atria Name Value Normal LA Dimensions LA Dimension (MM) 0.0 cm 3.0-4.0 LA Volume (4C A-L) 49 ml LA Volume (BP A-L) 63 ml RA Dimensions RA Systolic Major [place] Length (4C) 4.5 cm 2.1-2.7 RA Area (4C) 13.2 cm2 <=18.0 Report Signatures
[2025-07-30 05:35] LABS: Add Urine Microscopic? NO; Appearance Urine Clear (Clear); Glucose Urine UA Negative (Negative); Leukocyte Esterase Ur Negative LEU/UL (Negative); Nitrate Urine Negative (Negative); Specific Grav Ur > 1.045 (1.001-1.035)
[2025-07-30 05:35] LABS: Hematocrit 41.7 % (42.0-52.0); Hemoglobin 13.8 g/dL (14.0-18.0); Immature Granulocyte Percent A 0.3 % (0-0.5); Lymphocytes Absolute Auto 1.91 K/mm3 (0.9-3.2); Mean Corpuscular HGB Conc 33.1 g/dl (32-36); Mean Corpuscular Hemoglobin 30.3 pg (26-34); Mean Corpuscular Volume 91.6 fl (80-100); Nucleated Red Blood Cells Absolute Auto 0.020 K/mm3 (0.0-0.012); Nucleated Red Blood Cells Perc 0.3 % (0.0-0.2); Platelet Count Result 173 k/mm3 (150-375); Red Blood Count 4.55 M/mm3 (4.6-6.20); White Blood Count 6.2 K/mm3 (4.5-10.0)
[2025-07-30 05:57] LABS: Alanine Aminotransferase 25 U/L (6-50); Albumin Level 4.0 g/dL (3.5-5.1); Alkaline Phosphatase 70 U/L (38-126); Anion Gap 8 mmol/L (4-12); Aspartate Amino Transferase 25 U/L (17-59); Bilirubin,Total 1.6 mg/dL (0.2-1.3); Blood Urea Nitrogen 13 mg/dL (9-20); Calcium 8.8 mg/dL (8.4-10.2); Carbon Dioxide 25 mmol/L (22-30); Chloride 106 mmol/L (98-107); Estimated CRCL calculation 105 ml/min; Estimated Glomerular Filt Rate > 60; Glucose 118 mg/dL (65-110); Magnesium 2.1 mg/dL (1.6-2.3); Potassium 4.1 mmol/L (3.4-5.0); Sodium 139 mmol/L (137-145); Total Protein 6.1 g/dL (6.3-8.2)
--- NOTE | 2025-07-30 08:09 | P.PNIM_ITS ---
Progress Note: A&P Assessment and Plan (1) CVA (cerebral vascular accident): Code(s): I63.9 - Cerebral infarction, unspecified Status: Acute Assessment and Plan: -Prior history of significant stroke with left sided residual deficits -Today patient with worse weakness of LUE and worse facial droop - Lipid panel shows great control with rosuvastatin and Zetia - Head/neck CTA: Chronic right parietal infarction with unremarkable CTA - MRI: Evolving early chronic infarct with encephalomalacia and curvilinear enhancing cortical laminar necrosis involving the right insula and portions of the posterior right frontal lobe. Otherwise normal brain with no acute intracranial process or other abnormally enhancing brain lesions. - Echo ordered - Continue high-intensity statin and ASA - Initiate stroke protocol, NIH Stroke Scale, neuro's q.4 hours - Monitor CBC, CMP, magnesium, troponin, and lipid profile - Monitor blood pressure, allow for permissive hypertension. - Telemetry monitoring - Monitor blood glucose - PT/OT eval and treat - Denies any difficulty with eating/drinking - Neurology consulted, appreciate assistance and recommendations (2) Left hemiparesis: Code(s): G81.94 - Hemiplegia, unspecified affecting left nondominant side Status: Acute Assessment and Plan: -See above (3) Seizure disorder: Code(s): G40.909 - Epilepsy, unspecified, not intractable, without status epilepticus Status: Chronic Assessment and Plan: - Patient states symptoms felt similar to prior seizures although no seizure seen. He denies missing any of his Lamictal. Per his mother patient was confused following the event but the patient denies any biting of his tongue or cheek and no loss of bowel/bladder. - EEG ordered - Continue home medications, lamotrigine 150 mg BID (4) Type 2 diabetes mellitus with peripheral neuropathy: Code(s): E11.42 - Type 2 diabetes mellitus with diabetic polyneuropathy Status: Chronic Assessment and Plan: - hypoglycemia protocol - POC blood glucose ACHS - home medication - glimepiride 2 mg daily and metformin 1000 mg BID - correct regimen ordered - glimepiride 2 mg daily and low dose TIDWM - A1C 6.5 (5) HTN (hypertension): Code(s): I10 - Essential (primary) hypertension Status: Chronic Assessment and Plan: Chronic, continue home medications - lisinopril 20 mg daily - propranolol 120 mg daily - blood pressures well controlled, continue to monitor (6) HLD (hyperlipidemia): Code(s): E78.5 - Hyperlipidemia, unspecified Status: Chronic Assessment and Plan: -Lipid panel shows great control with rosuvastatin and Zetia -Continue home medications Time Spent With Patient Time with patient: 25 - 35 minutes Subjective Date/time seen: 07/30/25 08:09 Interval history: 40-year-old male patient with a past medical history of diabetes, htn, seizure as well as a prior right MCA stroke with left sided residual deficits who was admitted to the hospital for worsening left sided weakness and facial droop. Patient pleasant sitting up comfortably in bed eating lunch with family at bedside. He states that he feels that his left-sided weakness and left facial droop have returned to baseline. His mother was at bedside confirms. Patient states that his symptoms felt more similar to prior seizure activity and an acute stroke. He denies missing any of his Lamictal. Per his mother patient was confused following the event but the patient denies any biting of his tongue or cheek and no loss of bowel/bladder. Patient has no other complaints denying chest pain, shortness a breath, palpitations, nausea/vomiting, abdominal pain. Review of Systems Review of Systems: All systems reviewed & are unremarkable except as noted in HPI and below Exam Narrative: AF HR66 RR 18 SpO2 98 BP 116/84 General: male in no acute respiratory distress who is nontoxic appearing, sitting up in bed eating lunch HEENT: Normocephalic. Atraumatic. Pupils equal round reactive to light. Extraoc ular movement intact. Sclera clear and anicteric. Chronic left facial droop (per mother back to normal). Neck: Neck was supple. No dominant adenopathy, thyromegaly or masses. 2+ carotid upstrokes without bruits. Chest: Lungs are clear to auscultation bilaterally. No wheezes or crackles. CV: Heart was regular rate and rhythm. S1/S2. No murmurs, gallops, or rubs. Abd: Abdomen was soft. Nontender. Nondistended. Positive bowel sounds. Ext: No clubbing, cyanosis, or edema. DP pulses bilaterally. Neuro: Patient is alert and oriented x4. Strength decreased to the left upper extremity with environmental services associate and pushes/pulls compared to the right. BLE strength is symmetrical. Cranial nerves 2-12 are intact. Speech is clear. Objective Data Vital Signs Vital Signs: Vital Signs - 24 hr 07/29/25 15:22 07/29/25 15:22 07/29/25 15:46 Temperature 98.0 F 97.6 F Pulse Rate 86 85 85 Respiratory Rate 16 18 17 Blood Pressure 122/86 130/94 H 130/94 H Pulse Oximetry 99 98 97 Oxygen Delivery Room Air Room Air Fraction of Inspired Oxygen 07/29/25 15:52 07/29/25 15:54 07/29/25 16:00 Temperature Pulse Rate 87 87 87 Respiratory Rate 18 14 20 Blood Pressure 130/94 H Pulse Oximetry 97 98 97 Oxygen Delivery Fraction of Inspired Oxygen 07/29/25 16:01 07/29/25 16:20 07/29/25 16:30 Temperature Pulse Rate 86 85 86 Respiratory Rate 16 29 H 30 H Blood Pressure 120/102 H Pulse Oximetry 97 96 97 Oxygen Delivery Fraction of Inspired Oxygen 07/29/25 16:31 07/29/25 16:45 07/29/25 16:46 Temperature Pulse Rate 80 85 87 Respiratory Rate 24 H 27 H 27 H Blood Pressure 127/86 128/86 Pulse Oximetry 97 95 95 Oxygen Delivery Fraction of Inspired Oxygen 07/29/25 17:00 07/29/25 17:01 07/29/25 19:49 Temperature Pulse Rate 82 83 Respiratory Rate 26 H 27 H Blood Pressure 128/86 Pulse Oximetry 95 95 Oxygen Delivery Room Air Fraction of Inspired Oxygen 07/29/25 20:00 07/29/25 20:18 07/29/25 22:00 Temperature 98.6 F Pulse Rate 79 75 77 Respiratory Rate 20 18 Blood Pressure 121/92 H Pulse Oximetry 97 98 Oxygen Delivery Room Air Fraction of Inspired Oxygen 21 07/30/25 00:00 07/30/25 04:00 07/30/25 05:53 Temperature 97.7 F Pulse Rate 80 66 66 Respiratory Rate 18 Blood Pressure 116/84 Pulse Oximetry 98 Oxygen Delivery Fraction of Inspired Oxygen Intake/Output Intake/Output: Intake & Output 07/27/25 07/28/25 07/29/25 07/30/25 23:59 23:59 23:59 23:59 Intake Total 400 Output Total 500 Balance -100 Meds/Results Medications: Active Medications Generic Name Dose Route Start Last Admin Trade Name Freq PRN Reason Stop Dose Admin Acetaminophen 650 mg 07/29/25 21:55 Acetaminophen 325 Mg Tablet PO Q6H PRN Mild Pain (1-3) or Fever Aspirin 81 mg 07/30/25 09:00 Aspirin 81 Mg Enteric Tablet PO QAM GILDARDO Clonazepam 1 mg 07/29/25 21:55 07/29/25 22:57 Clonazepam (*Crx) 0.5 Mg Tablet PO 1 mg Q12HR GILDARDO Administration Dextrose 12.5 gm 07/29/25 21:57 Dextrose 50% 25 Gm/50 Ml Syringe IV PUSH PRN PRN Hypoglycemia Protocol Ezetimibe 10 mg 07/30/25 09:00 Ezetimibe 10 Mg Tablet PO DAILY GILDARDO Glimepiride 2 mg 07/30/25 08:00 Glimepiride 2 Mg Tablet PO DAILY@0800 GILDARDO Glucagon 1 mg 07/29/25 21:57 Glucagon For Inj 1 Mg Vial IM PRN PRN Hypoglycemia Protocol Glucose 15 gm 07/29/25 21:57 Glucose Oral Gel 15 Gm Of Glucse In 37.5 Gm Tube PO PRN PRN Hypoglycemia Protocol Dextrose 1,000 mls @ 100 mls/hr 07/29/25 21:57 Dextrose 5% 1,000 Ml IVPB PRN PRN Hypoglycemia Protocol Insulin Aspart 2 - 5 units 07/30/25 08:00 Insulin Aspart (*Bkc) 100 Units/Ml SUB-Q [facility] Protocol Lamotrigine 150 mg 07/29/25 22:05 07/29/25 22:52 Lamotrigine 50 Mg Tablet PO 150 mg Q12HR GILDARDO Administration Lisinopril 20 mg 07/30/25 09:00 Lisinopril 20 Mg Tablet PO DAILY [facility] Montelukast Sodium 10 mg 07/30/25 09:00 Montelukast Sodium 10 Mg Tablet PO DAILY GILDARDO Nortriptyline HCl 50 mg 07/29/25 22:00 07/29/25 22:57 Nortriptyline Hcl 25 Mg Capsule PO 50 mg QHS GILDARDO Administration Pantoprazole Sodium 40 mg 07/29/25 22:00 07/29/25 22:57 Pantoprazole 40 Mg Tablet PO 40 mg Q12HR GILDARDO Administration Perflutren Lipid Microsphere 0 ml 07/29/25 19:26 Perflutren Lipid Microspheres 1.5 Ml Vial Diluted To 10 Ml Total Volume IV PUSH 08/01/25 19:26 ONCE PRN adequate visualization Protocol Propranolol HCl 120 mg 07/29/25 22:00 07/29/25 22:57 Propranolol Hcl 60 Mg Capsule Cr PO 120 mg HS GILDARDO Administration Quetiapine Fumarate 100 mg 07/29/25 22:00 07/29/25 22:52 Quetiapine Fumarate 100 Mg Tablet PO 100 mg HS GILDARDO Administration Rosuvastatin Calcium 20 mg 07/30/25 09:00 Rosuvastatin 20 Mg Tablet PO DAILY GILDARDO Trazodone HCl 50 mg 07/29/25 22:00 07/29/25 22:57 Trazodone Hcl 50 Mg Tablet PO 50 mg HS GILDARDO Administration Radiology Results: ITS Impressions Head/Neck CTA 07/29/25 17:50 IMPRESSION: 1: Chronic right parietal infarction. 2: Unremarkable CT angiogram of the head and neck. Labs Labs: Laboratory Results - last 24 hr 07/29/25 07/30/25 07/30/25 16:07 05:04 05:23 WBC 5.2 6.2 RBC 4.67 4.55 L Hgb 14.2 13.8 L Hct 41.8 L 41.7 L MCV 89.5 91.6 MCH 30.4 30.3 MCHC 34.0 33.1 RDW 12.4 12.5 Plt Count 153 173 MPV 9.4 9.8 Immature Gran % (Auto) 0.4 0.3 Neut % (Auto) 57.8 59.9 Lymph % (Auto) 32.7 30.7 [place] % (Auto) 6.8 7.4 Eos % (Auto) 1.5 1.1 Baso % (Auto) 0.8 0.6 Lymph # (Auto) 1.69 1.91 [place] # (Auto) 0.4 0.5 Eos # (Auto) 0.1 0.1 Baso # (Auto) 0.0 0.0 Abs Immat Gran (auto) 0.02 0.02 Absolute Neuts (auto) 3.0 3.7 Absolute Nucleated RBC 0.000 0.020 H Nucleated RBC % 0.0 0.3 H PT 13.4 INR 1.0 APTT 29.4 Sodium 140 139 Potassium 4.2 4.1 Chloride 106 106 Carbon Dioxide 27 25 Anion Gap 7 8 BUN 13 13 Creatinine 0.91 0.96 Estim Creat Clear Calc 110 105 Estimated GFR > 60 > 60 Glucose 136 H 118 H Hemoglobin A1c 6.5 H Calcium 8.8 8.8 Magnesium 2.1 2.1 Total Bilirubin 1.6 H 1.6 H AST 25 25 ALT 27 25 Alkaline Phosphatase 75 70 Total Protein 6.2 L 6.1 L Albumin 4.1 4.0 Triglycerides 69 Cholesterol 90 LDL Cholesterol Direct 34 HDL Direct 39 Urine Color Yellow Urine Appearance Clear Urine pH 6.0 Ur Specific [place] > 1.045 H Urine Protein Negative Urine Glucose (UA) Negative Urine Ketones Negative Ur Blood (Man) Negative Urine Nitrate Negative Urine Bilirubin Negative Urine Urobilinogen 1.0 Leukocyte Esterase Rfl Negative Quality VTE Prophylaxis VTE prophylaxis: mechanical ordered
[2025-07-30] MEDS: MONTELUKAST SODIUM 10 MG TABLET PO (08:17)
[2025-07-30] MEDS: ROSUVASTATIN 20 MG TABLET PO (08:17)
[2025-07-30] MEDS: PANTOPRAZOLE 40 MG TABLET PO ×2 (08:17→20:33)
[2025-07-30] MEDS: ASPIRIN 81 MG ENTERIC TABLET PO (08:17)
[2025-07-30] MEDS: clonazePAM (*CRX) 0.5 MG TABLET 1 MG PO ×2 (08:17→20:33)
[2025-07-30] MEDS: EZETIMIBE 10 MG TABLET PO (08:17)
[2025-07-30] MEDS: GLIMEPIRIDE 2 MG TABLET PO (08:17)
[2025-07-30] MEDS: lamoTRIgine 50 MG TABLET 150 MG PO ×2 (09:05→20:33)
--- NOTE | 2025-07-30 09:32 | WPDNEURCNPN ---
Assessment and Plan Assessment and plan (1) Focal seizure: Code(s): R56.9 - Unspecified convulsions Status: Acute Plan 1. 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 Without evidence of any hemorrhage. CTA of the head and neck documented no acute obstruction in the blood flow and compared to study done on May 03, 2025 no significant change. Echocardiogram has not been done and needs to be done as I am unable to in previous report as well in the meantime patient can be continued aspirin 81mg daily, mother had a question about Plavix because the Plavix has not been started during this hospitalization and she was questioning whether that needs to be continued, will wait for the echocardiogram results. Also he will benefit from the eeg to rule out the possibility of any focal electrical seizure from the previous stroke. Consult date: 07/30/25 HPI: Carlos Cohn is a 40 year old male Admitted to the hospital with the complaints of increasing weakness on the left side of his body in addition to the history of previous stroke with residual left-sided facial asymmetry and left lower extremity weakness, this particular morning patient was unable to move the left hand up until he arrived in the emergency room. Patient's medications include Seroquel 200mg at night, clonazepam 0.5mg at night. He reportedly allergic to multiple medications as outlined. He has ongoing history of 1. Anxiety with depression 2. Controlled type 2 diabetes mellitus 3. Migraine headache 4. ADHD 5. Being mentally challenged. He has no h/o alcohol intake, he does not smoke, and on initial evaluation in the emergency room his vital signs were normal, except at 1 time respiratory rate was 27, his neurological examination was documented as ability to move all extremities with left-sided facial droop which was normal for him. CTA of the head documented chronic right parietal infarction otherwise unremarkable CTA of the head and neck. He had an MRI of the brain on May 04, 2025 which has documented acute cerebral infarction involving the right middle cerebral artery. At present he is taking multiple medications which particularly Review of Systems Review of Systems: All systems reviewed & are unremarkable except as noted in HPI and below PMFSH Past Medical History Medical History BMI 30.0-30.9,adult Seizure disorder Right middle cerebral artery stroke History of urinary stone (06/2024) Left ureteral stone Anxiety and depression History of arm fracture left distal radius 04/1990 History of chickenpox 04/1990 Diabetes type 2, controlled Migraine headache ADHD Eczema Reflux gastritis HTN (hypertension) Mentally challenged Surgical History Surgical History History of tonsillectomy (2007) Family History Family History Mother Diabetes mellitus Hypertension Pulmonary embolism Seizure Father Diabetes mellitus Heart disease Hypertension Grandparent Diabetes mellitus Heart disease Hypertension Kidney failure Social History Social History Smoking status: Never smoker Second hand tobacco smoke exposure: No Alcohol intake: never Substance use: never Substance use type: does not use and prescription drug Do You Feel Safe in your Home?: Yes Lack of Transportation: No Lack of Food: Never True Current Housing: I Have Housing Concerned About Future Housing: No Difficulty Paying Gas/Electric Bills: No Difficulty Paying for Meds: No Currently Unemployed: No Education: High School Diploma/GED Difficulty w/ Childcare or Family Care: No Living arrangements: with family Occupation/Education: unemployed Gender identity (if verbalized by the patient): Male Spiritual care concerns: No Meds Home Medications and Allergies Home Medications ?Medication ?Instructions ?Recorded ?Confirmed ?Type quetiapine 200 mg tablet (Seroquel) 100 mg PO HS 07/27/22 07/29/25 History clonazepam 0.5 mg tablet 1 mg PO BID 12/22/24 07/29/25 History aspirin 81 mg tablet,delayed 81 mg PO QAM #30 tabs 05/07/25 07/29/25 Rx release acetaminophen 325 mg tablet 650 mg (2 x 325 mg) PO Q6H PRN 05/16/25 07/29/25 Rx Mild Pain (1-3) Or Fever #240 tabs ezetimibe 10 mg tablet 10 mg PO DAILY #30 tabs 05/16/25 07/29/25 Rx glimepiride 2 mg tablet 2 mg PO DAILY #30 tabs 05/16/25 07/29/25 Rx lamotrigine 150 mg tablet 150 mg PO BID #60 tabs 05/16/25 07/29/25 Rx lisinopril 20 mg tablet 20 mg PO DAILY #30 tabs 05/16/25 07/29/25 Rx metformin 500 mg tablet,extended 1,000 mg (2 x 500 mg) PO BID #120 05/16/25 07/29/25 Rx release 24 hr tabs montelukast 10 mg tablet 10 mg PO DAILY #30 tabs 05/16/25 07/29/25 Rx (Singulair) propranolol 60 mg capsule,24 120 mg (2 x 60 mg) PO HS #60 caps 05/16/25 07/29/25 Rx hr,extended release (Inderal LA) sennosides 8.6 mg-docusate sodium 1 tab PO BID #60 tabs 05/16/25 07/29/25 Rx 50 mg tablet (Senokot-S) Held on 07/29/25. Instructions: soft stools nortriptyline 50 mg capsule 50 mg PO QHS #90 caps 06/19/25 07/29/25 Rx rosuvastatin 20 mg tablet 20 mg PO DAILY #90 tabs 07/15/25 07/29/25 Rx pantoprazole 40 mg tablet,delayed See Rx Instructions .Route 07/16/25 07/29/25 Rx release .COMPLEX #180 tabs blood sugar diagnostic (Accu-Chek #100 ea 07/18/25 07/29/25 Rx Guide test strips) blood-glucose meter (Accu-Chek #1 ea 07/18/25 07/29/25 Rx Guide Me Glucose Meter) lancets 28 gauge (Advanced Travel #100 ea 07/18/25 07/29/25 Rx Lancets) rimegepant 75 mg disintegrating 75 mg PO ONCE PRN migraine 07/18/25 07/29/25 Rx tablet (Nurtec ODT) headache #16 tabs trazodone 50 mg tablet 50 mg PO HS 07/29/25 07/29/25 History Allergies Allergy/AdvReac Type Severity Reaction Status Date / Time chlorpheniramine Allergy Unknown Other Verified 07/18/25 10:08 naproxen Allergy Unknown Nose Bleed Verified 07/18/25 10:08 phenylephrine Allergy Unknown Other Verified 07/18/25 10:08 scopolamine Allergy Unknown Other Verified 07/18/25 10:08 ANTICHOLINERGICS,OTHER Allergy Unknown Other Uncoded 07/18/25 10:08 Vital Signs Vital Signs - 24 hr 07/29/25 15:22 07/29/25 15:22 07/29/25 15:46 Temperature 36.7 C 36.4 C Pulse Rate 86 85 85 Respiratory Rate 16 18 17 Blood Pressure 122/86 130/94 H 130/94 H Pulse Oximetry 99 98 97 Oxygen Delivery Room Air Room Air Fraction of Inspired Oxygen 07/29/25 15:52 07/29/25 15:54 07/29/25 16:00 Temperature Pulse Rate 87 87 87 Respiratory Rate 18 14 20 Blood Pressure 130/94 H Pulse Oximetry 97 98 97 Oxygen Delivery Fraction of Inspired Oxygen 07/29/25 16:01 07/29/25 16:20 07/29/25 16:30 Temperature Pulse Rate 86 85 86 Respiratory Rate 16 29 H 30 H Blood Pressure 120/102 H Pulse Oximetry 97 96 97 Oxygen Delivery Fraction of Inspired Oxygen 07/29/25 16:31 07/29/25 16:45 07/29/25 16:46 Temperature Pulse Rate 80 85 87 Respiratory Rate 24 H 27 H 27 H Blood Pressure 127/86 128/86 Pulse Oximetry 97 95 95 Oxygen Delivery Fraction of Inspired Oxygen 07/29/25 17:00 07/29/25 17:01 07/29/25 19:49 Temperature Pulse Rate 82 83 Respiratory Rate 26 H 27 H Blood Pressure 128/86 Pulse Oximetry 95 95 Oxygen Delivery Room Air Fraction of Inspired Oxygen 07/29/25 20:00 07/29/25 20:18 07/29/25 22:00 Temperature 37.0 C Pulse Rate 79 75 77 Respiratory Rate 20 18 Blood Pressure 121/92 H Pulse Oximetry 97 98 Oxygen Delivery Room Air Fraction of Inspired Oxygen 21 07/30/25 00:00 07/30/25 04:00 07/30/25 05:53 Temperature 36.5 C Pulse Rate 80 66 66 Respiratory Rate 18 Blood Pressure 116/84 Pulse Oximetry 98 Oxygen Delivery Fraction of Inspired Oxygen Exam Narrative: Exam revealed him to be awake alert cooperative in no obvious acute distress, head normocephalic with no cranial bruits, neck supple with no cervical bruit no thyromegaly no lymphadenopathy, heart regular with no murmur, lungs clear with no rhonchi or crepitations, abdomen is soft nontender with normal bowel sounds, neurological examination revealed him to be awake alert being aware of being in the hospital, oriented in right and left, his speech not dysphasic not dysarthric though somewhat slow and hesitant, pupils round regular, as the vision with questionable left-sided neglect, face mildly asymmetrical, tongue in the oral cavity with no fasciculation, uvula in the midline, and motor examination revealed him to have left hemiparesis with hyperreflexia and upgoing left plantar response. There was no gross cerebellar deficit on the right side 0 he had some difficulties performing [id number]-finger and heel to knee to kuo on the left Results Labs 07/30/25 05:04 07/30/25 05:04 Labs: Short CBC 07/29/25 07/30/25 Range/Units 16:07 05:04 WBC 5.2 6.2 (4.5-10.0) K/mm3 Hgb 14.2 13.8 L (14.0-18.0) g/dL Hct 41.8 L 41.7 L (42.0-52.0) % Plt Count 153 173 (150-375) k/mm3 BMP 07/29/25 07/30/25 16:07 05:04 Sodium 140 139 Potassium 4.2 4.1 Chloride 106 106 Carbon Dioxide 27 25 BUN 13 13 Creatinine 0.91 0.96 Glucose 136 H 118 H Calcium 8.8 8.8 Liver Function 07/29/25 07/30/25 Range/Units 16:07 05:04 Total Bilirubin 1.6 H 1.6 H (0.2-1.3) mg/dL AST 25 25 (17-59) U/L ALT 27 25 (6-50) U/L Alkaline Phosphatase 75 70 (38-126) U/L Albumin 4.1 4.0 (3.5-5.1) g/dL Urine 07/30/25 Range/Units 05:23 Urine Color Yellow (Yellow) Urine Appearance Clear (Clear) Urine pH 6.0 (5.0-9.0) Ur Specific [place] > 1.045 H (1.001-1.035) Urine Protein Negative (Negative) mg/dL Urine Glucose (UA) Negative (Negative) mg/dL
[2025-07-30] MEDS: PERFLUTREN LIPID MICROSPHERES 1.5 ML VIAL DILUTED TO 10 ML TOTAL VOLUME IV PUSH (15:40)
--- NOTE | 2025-07-30 15:52 | IVDEFINITY ---
Prior to administration of IV Definity the patient was educated on the risks and benefits of the imaging enhancing agent including potential adverse side effects. The patient verbalized understanding. Allergies were verified. No exclusion criteria were identified and at least one of the following inclusion criteria were met: 1) physician request, 2) patient technically difficult to image (per the [place] [employer] guidelines of two or more segments not discernable within the apical view), or 3) questionable left ventricular function. ?
[2025-07-30] MEDS: ACETAMINOPHEN 325 MG TABLET 650 MG PO (18:27)
[2025-07-30] MEDS: NORTRIPTYLINE HCL 25 MG CAPSULE 50 MG PO (20:32)
[2025-07-30] MEDS: PROPRANOLOL HCL 60 MG CAPSULE CR 120 MG PO (20:33)
[2025-07-31] VITALS: PULSE 69
[2025-07-31 04:00] VITALS: PULSE 62
[2025-07-31 05:48] VITALS: BP 108/88; PULSE 63; RESP 18; TEMP 36.5; O2SAT 96
[2025-07-31 05:48] LABS: Hematocrit 41.3 % (42.0-52.0); Hemoglobin 14.0 g/dL (14.0-18.0); Immature Granulocyte Percent A 0.3 % (0-0.5); Lymphocytes Absolute Auto 2.67 K/mm3 (0.9-3.2); Mean Corpuscular HGB Conc 33.9 g/dl (32-36); Mean Corpuscular Hemoglobin 29.9 pg (26-34); Mean Corpuscular Volume 88.2 fl (80-100); Nucleated Red Blood Cells Absolute Auto 0.000 K/mm3 (0.0-0.012); Nucleated Red Blood Cells Perc 0.0 % (0.0-0.2); Platelet Count Result 157 k/mm3 (150-375); Red Blood Count 4.68 M/mm3 (4.6-6.20); White Blood Count 6.2 K/mm3 (4.5-10.0)
[2025-07-31 06:28] LABS: Alanine Aminotransferase 24 U/L (6-50); Albumin Level 3.9 g/dL (3.5-5.1); Alkaline Phosphatase 73 U/L (38-126); Anion Gap 8 mmol/L (4-12); Aspartate Amino Transferase 24 U/L (17-59); Bilirubin,Total 1.6 mg/dL (0.2-1.3); Blood Urea Nitrogen 17 mg/dL (9-20); Calcium 8.8 mg/dL (8.4-10.2); Carbon Dioxide 24 mmol/L (22-30); Chloride 104 mmol/L (98-107); Estimated CRCL calculation 111 ml/min; Estimated Glomerular Filt Rate > 60; Glucose 104 mg/dL (65-110); Magnesium 2.0 mg/dL (1.6-2.3); Potassium 3.9 mmol/L (3.4-5.0); Sodium 136 mmol/L (137-145); Total Protein 5.9 g/dL (6.3-8.2)
[2025-07-31 08:05] VITALS: PULSE 61
[2025-07-31] MEDS: lamoTRIgine 50 MG TABLET 150 MG PO (08:40)
[2025-07-31] MEDS: ROSUVASTATIN 20 MG TABLET PO (08:41)
[2025-07-31] MEDS: GLIMEPIRIDE 2 MG TABLET PO (08:41)
[2025-07-31] MEDS: EZETIMIBE 10 MG TABLET PO (08:41)
[2025-07-31] MEDS: ASPIRIN 81 MG ENTERIC TABLET PO (08:41)
[2025-07-31] MEDS: MONTELUKAST SODIUM 10 MG TABLET PO (08:41)
[2025-07-31] MEDS: PANTOPRAZOLE 40 MG TABLET PO (08:41)
[2025-07-31] MEDS: clonazePAM (*CRX) 0.5 MG TABLET 1 MG PO (08:41)
--- NOTE | 2025-07-31 10:15 | WPDNEUROPN ---
Subjective Date/time seen: 07/31/25 10:15 Interval history: his status post right hemispheric stroke in the distribution of the right middle cerebral artery documented by the previous MRI as well, admitted for the complaints of increasing left-sided weakness, brain MRI is reported evolving early chronic infarct with encephalomalacia and cortical laminar necrosis involving the right insula and part of posterior right frontal lobe but without any acute process. EEG is being awaited, continues on aspirin 81mg daily in addition to other medications but particularly rosuvastatin 20mg daily. Will wait for the EEG. Objective Data Vital Signs Vital Signs: Vital Signs - 24 hr 07/30/25 12:37 07/30/25 14:55 07/30/25 15:03 Temperature 36.7 C Pulse Rate 73 69 Respiratory Rate 18 Blood Pressure 116/84 Pulse Oximetry 97 Oxygen Delivery Room Air Fraction of Inspired Oxygen 07/30/25 16:05 07/30/25 19:56 07/30/25 20:00 Temperature Pulse Rate 67 67 68 Respiratory Rate 18 Blood Pressure Pulse Oximetry 97 Oxygen Delivery Room Air Fraction of Inspired Oxygen 21 07/30/25 21:03 07/31/25 00:00 07/31/25 04:00 Temperature 36.6 C Pulse Rate 70 69 62 Respiratory Rate 18 Blood Pressure 131/96 H Pulse Oximetry 98 Oxygen Delivery Fraction of Inspired Oxygen 07/31/25 05:48 07/31/25 08:40 Temperature 36.5 C Pulse Rate 63 Respiratory Rate 18 Blood Pressure 108/88 Pulse Oximetry 96 Oxygen Delivery Room Air Fraction of Inspired Oxygen Intake/Output Intake/Output: Intake & Output 07/28/25 07/29/25 07/30/25 07/31/25 23:59 23:59 23:59 23:59 Intake Total 1480 200 Output Total 500 Balance 980 200 Meds/Results Medications: Active Medications Generic Name Dose Route Start Last Admin Trade Name Freq PRN Reason Stop Dose Admin Acetaminophen 650 mg 07/29/25 21:55 07/30/25 18:27 Acetaminophen 325 Mg Tablet PO 650 mg Q6H PRN Administration Mild Pain (1-3) or Fever Aspirin 81 mg 07/30/25 09:00 07/31/25 08:41 Aspirin 81 Mg Enteric Tablet PO 81 mg QAM GILDARDO Administration Clonazepam 1 mg 07/29/25 21:55 07/31/25 08:41 Clonazepam (*Crx) 0.5 Mg Tablet PO 1 mg Q12HR GILDARDO Administration Dextrose 12.5 gm 07/29/25 21:57 Dextrose 50% 25 Gm/50 Ml Syringe IV PUSH PRN PRN Hypoglycemia Protocol Ezetimibe 10 mg 07/30/25 09:00 07/31/25 08:41 Ezetimibe 10 Mg Tablet PO 10 mg DAILY GILDARDO Administration Glimepiride 2 mg 07/30/25 08:00 07/31/25 08:41 Glimepiride 2 Mg Tablet PO 2 mg DAILY@0800 GILDARDO Administration Glucagon 1 mg 07/29/25 21:57 Glucagon For Inj 1 Mg Vial IM PRN PRN Hypoglycemia Protocol Glucose 15 gm 07/29/25 21:57 Glucose Oral Gel 15 Gm Of Glucse In 37.5 Gm Tube PO PRN PRN Hypoglycemia Protocol Dextrose 1,000 mls @ 100 mls/hr 07/29/25 21:57 Dextrose 5% 1,000 Ml IVPB PRN PRN Hypoglycemia Protocol Insulin Aspart 2 - 5 units 07/30/25 08:00 07/31/25 08:46 Insulin Aspart (*Bk) 100 Units/Ml SUB-Q Not Given TIDWM GILDARDO Protocol Lamotrigine 150 mg 07/29/25 22:05 07/31/25 08:40 Lamotrigine 50 Mg Tablet PO 150 mg Q12HR GILDARDO Administration Lisinopril 20 mg 07/30/25 09:00 07/31/25 08:40 Lisinopril 20 Mg Tablet PO 20 mg DAILY GILDARDO Administration Montelukast Sodium 10 mg 07/30/25 09:00 07/31/25 08:41 Montelukast Sodium 10 Mg Tablet PO 10 mg DAILY GILDARDO Administration Nortriptyline HCl 50 mg 07/29/25 22:00 07/30/25 20:32 Nortriptyline Hcl 25 Mg Capsule PO 50 mg QHS GILDARDO Administration Pantoprazole Sodium 40 mg 07/29/25 22:00 07/31/25 08:41 Pantoprazole 40 Mg Tablet PO 40 mg Q12HR GILDARDO Administration Propranolol HCl 120 mg 07/29/25 22:00 07/30/25 20:33 Propranolol Hcl 60 Mg Capsule Cr PO 120 mg HS GILDARDO Administration Quetiapine Fumarate 100 mg 07/29/25 22:00 07/30/25 20:33 Quetiapine Fumarate 100 Mg Tablet PO 100 mg HS GILDARDO Administration Rosuvastatin Calcium 20 mg 07/30/25 09:00 07/31/25 08:41 Rosuvastatin 20 Mg Tablet PO 20 mg DAILY GILDARDO Administration Trazodone HCl 50 mg 07/29/25 22:00 07/30/25 20:33 Trazodone Hcl 50 Mg Tablet PO 50 mg HS GILDARDO Administration Radiology Results: ITS Impressions Head/Neck CTA 07/29/25 17:50 IMPRESSION: 1: Chronic right parietal infarction. 2: Unremarkable CT angiogram of the head and neck. Brain MRI 07/30/25 12:28 IMPRESSION: 1. 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 2. Otherwise normal brain with no acute intracranial process or other abnormally enhancing brain lesions. Labs Labs: Laboratory Results - last 24 hr 07/30/25 07/30/25 07/30/25 11:29 16:48 21:09 WBC RBC Hgb Hct MCV MCH MCHC RDW Plt Count MPV Immature Gran % (Auto) Neut % (Auto) Lymph % (Auto) [place] % (Auto) Eos % (Auto) Baso % (Auto) Lymph # (Auto) [place] # (Auto) Eos # (Auto) Baso # (Auto) Abs Immat Gran (auto) Absolute Neuts (auto) Absolute Nucleated RBC Nucleated RBC % Sodium Potassium Chloride Carbon Dioxide Anion Gap BUN Creatinine Estim Creat Clear Calc Estimated GFR Glucose POC Capillary Glucose 135 H 121 H 155 H Calcium Magnesium Total Bilirubin AST ALT Alkaline Phosphatase Total Protein Albumin 07/31/25 07/31/25 05:33 08:08 WBC 6.2 RBC 4.68 Hgb 14.0 Hct 41.3 L MCV 88.2 MCH 29.9 MCHC 33.9 RDW 12.3 Plt Count 157 MPV 9.3 Immature Gran % (Auto) 0.3 Neut % (Auto) 46.7 Lymph % (Auto) 43.3 [place]bert % (Auto) 7.3 Eos % (Auto) 1.8 Baso % (Auto) 0.6 Lymph # (Auto) 2.67 [place]bert # (Auto) 0.5 Eos # (Auto) 0.1 Baso # (Auto) 0.0 Abs Immat Gran (auto) 0.02 Absolute Neuts (auto) 2.9 Absolute Nucleated RBC 0.000 Nucleated RBC % 0.0 Sodium 136 L Potassium 3.9 Chloride 104 Carbon Dioxide 24 Anion Gap 8 BUN 17 Creatinine 0.90 Estim Creat Clear Calc 111 Estimated GFR > 60 Glucose 104 POC Capillary Glucose 108 H Calcium 8.8 Magnesium 2.0 Total Bilirubin 1.6 H AST 24 ALT 24 Alkaline Phosphatase 73 Total Protein 5.9 L Albumin 3.9
[2025-07-31 12:06] VITALS: PULSE 65
--- NOTE | 2025-07-31 12:09 | WPDNEUROLOGY ---
Neurology EEG Report General Information Date of Study: 07/31/25 TEST EEG DIAGNOSIS Is status post stroke with the possibility of seizure. CONDITION OF RECORDING Awake drowsy and asleep. EEG NUMBER [id number] CLINICAL HISTORY Patient reports he came into hospital due to not being able to talk for couple of hours has history of stroke that affected his left face and the left arm. EEG DESCRIPTION Basic resting occipital frequency consists of fairly well-organized low to medium voltage 9 to 11 hertz per 2nd alpha admixed with low-voltage 15 to 18 hertz per 2nd beta. Low-voltage beta activity seen diffusely admixed with waxing and waning posterior alpha rhythm during drowsiness admixed with intermittent 6 to 7 hertz per 2nd theta activity. Photic stimulation not done. Hyperventilation not done. Mild asymmetry of the amplitude is noted with somewhat decreased over the right hemispheric linkages compared to the left. IMPRESSION No significant abnormalities noted particular there is no evidence of any paroxysmal phenomena though subtle asymmetry of amplitude is noted general. This particular EEG is most suggestive of an focal seizure. Clinical correlation recommended.
--- NOTE | 2025-07-31 13:01 | P.DS_ITS ---
DS: Admitting Diagnosis Discharge Date 07/31 Admitting Diagnosis left upper extremity weakness DS: Discharge Diagnosis Discharge Diagnosis (1) CVA (cerebral vascular accident): Code(s): I63.9 - Cerebral infarction, unspecified Status: Acute (2) Left hemiparesis: Code(s): G81.94 - Hemiplegia, unspecified affecting left nondominant side Status: Acute (3) Seizure disorder: Code(s): G40.909 - Epilepsy, unspecified, not intractable, without status epilepticus Status: Chronic (4) Type 2 diabetes mellitus with peripheral neuropathy: Code(s): E11.42 - Type 2 diabetes mellitus with diabetic polyneuropathy Status: Chronic (5) HTN (hypertension): Code(s): I10 - Essential (primary) hypertension Status: Chronic (6) HLD (hyperlipidemia): Code(s): E78.5 - Hyperlipidemia, unspecified Status: Chronic DS: Summary Hospital Course Hospital Course: 40-year-old male patient with a past medical history of diabetes, htn, seizure as well as a prior right MCA stroke with left sided residual deficits who was admitted to the hospital for worsening left sided weakness and facial droop. Neurology was consulted: s/p right hemispheric stroke in the distribution of the right middle cerebral artery documented by the previous MRI as well, adm itted for the complaints of increasing left-sided weakness, brain MRI is reported evolving early chronic infarct with encephalomalacia and cortical laminar necrosis involving the right insula and part of posterior right frontal lobe but without any acute process. EEG is being awaited, continues on aspirin 81mg daily in addition to other medications but particularly rosuvastatin 20mg daily. EEG reveals only minimal asymmetry of the amplitude but no evidence of any paroxysmal activity so patient does not have any focal seizure. Discussed with the patient and he can be discharged ECHO: Summary 1. Definity E/e' contrast administered improved wall motion interpretation. 2. Left ventricular chamber dimension is mildly enlarged. 3. Left ventricular systolic function is moderately globally reduced, estimated at 40-45. 4. The left ventricular diastolic function is normal. 5. E/e' 6 s not elevated. 6. Right ventricular chamber dimension is mildly enlarged. 7. Left atrial chamber dimension is mildly enlarged. 8. Agitated saline injection with and without valsalva maneuver opacified right side cardiac chambers with shunt to left side cardiac chambers suggestive of patent foramen ovale. 9. There is mild to moderate mitral valve regurgitation. 10. There is trace tricuspid valve regurgitation. 11. No pulmonary hypertension, estimated pulmonary arterial systolic pressure is 19 mmHg. 12. The aortic root size at the sinus of Valsalva is borderline dilated at 4.1 cm. Discussed with pt's mother- will f/u with PCP/Card for further work up. Pt was stable, no acute events. Cleared for discharge with neurology with a close f/u. Status at Discharge Functional status at discharge: independent ambulation Overall status at discharge: patient is progressing back to baseline Time Spent with Patient Time attestation: Total time spent providing and/or coordinating discharge services: Time spent: Greater than 30 minutes Exam Narrative: General: male in no acute respiratory distress who is nontoxic appearing, sitting up in bed eating lunch HEENT: Normocephalic. Atraumatic. Pupils equal round reactive to light. Extraocular movement intact. Sclera clear and anicteric. Chronic left facial droop (per mother back to normal). Neck: Neck was supple. No dominant adenopathy, thyromegaly or masses. 2+ carotid upstrokes without bruits. Chest: Lungs are clear to auscultation bilaterally. No wheezes or crackles. CV: Heart was regular rate and rhythm. S1/S2. No murmurs, gallops, or rubs. Abd: Abdomen was soft. Nontender. Nondistended. Positive bowel sounds. Ext: No clubbing, cyanosis, or edema. DP pulses bilaterally. Neuro: Patient is alert and oriented x4. Strength decreased to the left upper extremity with entry level recruiter and pushes/pulls compared to the right. BLE strength is symmetrical. Cranial nerves 2-12 are intact. Speech is clear. Const: General: comfortable Resp: Effort & Inspection: normal respiratory effort Cardio: Rate: regular rate Rhythm: regular rhythm GI: GI Palp: Yes Soft to palpation Auscultation: normal bowel sounds Psych: Affect: normal affect DS: Data Data Completed and Pending Labs on day of discharge: Labs from last 24 hours 07/31/25 07/31/25 07/31/25 11:49 08:08 05:33 WBC 6.2 RBC 4.68 Hgb 14.0 Hct 41.3 L MCV 88.2 MCH 29.9 MCHC 33.9 RDW 12.3 Plt Count 157 MPV 9.3 Immature Gran % (Auto) 0.3 Neut % (Auto) 46.7 Lymph % (Auto) 43.3 [place] % (Auto) 7.3 Eos % (Auto) 1.8 Baso % (Auto) 0.6 Lymph # (Auto) 2.67 [place] # (Auto) 0.5 Eos # (Auto) 0.1 Baso # (Auto) 0.0 Abs Immat Gran (auto) 0.02 Absolute Neuts (auto) 2.9 Absolute Nucleated RBC 0.000 Nucleated RBC % 0.0 Sodium 136 L Potassium 3.9 Chloride 104 Carbon Dioxide 24 Anion Gap 8 BUN 17 Creatinine 0.90 Estim Creat Clear Calc 111 Estimated GFR > 60 Glucose 104 POC Capillary Glucose 120 H 108 H Calcium 8.8 Magnesium 2.0 Total Bilirubin 1.6 H AST 24 ALT 24 Alkaline Phosphatase 73 Total Protein 5.9 L Albumin 3.9 07/30/25 07/30/25 21:09 16:48 WBC RBC Hgb Hct MCV MCH MCHC RDW Plt Count MPV Immature Gran % (Auto) Neut % (Auto) Lymph % (Auto) [place] % (Auto) Eos % (Auto) Baso % (Auto) Lymph # (Auto) [place] # (Auto) Eos # (Auto) Baso # (Auto) Abs Immat Gran (auto) Absolute Neuts (auto) Absolute Nucleated RBC Nucleated RBC % Sodium Potassium Chloride Carbon Dioxide Anion Gap BUN Creatinine Estim Creat Clear Calc Estimated GFR Glucose POC Capillary Glucose 155 H 121 H Calcium Magnesium Total Bilirubin AST ALT Alkaline Phosphatase Total Protein Albumin Discharge Plan Discharge Attending physician on discharge: Elva Chamberlain Consulting providers: Jersey Pineda; Ileana Dennis Discharging Clinician: Jessica Trujillo Patient Disposition: Home Activity: march shower Diet: regular Discharge Instructions: MRI and EEG were unremarkable. ECHO showed reduced EF 40-45% and mild mitral valve regurgitation and trace tricuspid valve regurgitation. Please f/u with PCP and/or cardiology for further workup. Patient Instructions: Antibiotic Form Patient Language: Venezuelan Stand Alone Forms: General Discharge Information Follow-up/Referrals: Jennifer White APRN [Primary Care Provider, [facility]] - 2 Weeks Discharge Medications: Continued quetiapine [Seroquel] 200 mg tablet 100 mg PO HS clonazepam 0.5 mg tablet 1 mg PO BID nortriptyline 50 mg capsule 50 mg PO QHS Qty: 90 0RF Nurtec ODT 75 mg tablet,disintegrating 75 mg PO ONCE PRN (Reason: migraine headache) Qty: 16 1RF Rx Instructions: as a single dose (DME) blood-glucose meter [Accu-Chek Guide Me Glucose Mtr] [facility] [place] See Rx Instructions .Route Qty: 1 0RF Rx Instructions: daily (DME) Accu-Chek Guide test strips Strip See Rx Instructions .Route Qty: 100 3RF Rx Instructions: daily (DME) lancets [Advanced Travel Lancets] 28 gauge misc See Rx Instructions .Route Qty: 100 3RF Rx Instructions: daily aspirin 81 mg Tablet,Delayed Release (Dr/Ec) 81 mg PO QAM Qty: 30 0RF trazodone 50 mg tablet 50 mg PO HS rosuvastatin 20 mg tablet 20 mg PO DAILY Qty: 90 2RF pantoprazole 40 mg tablet,delayed release (DR/EC) See Rx Instructions .ROUTE .COMPLEX Qty: 180 2RF Dose Instruction: TAKE 1 TABLET BY MOUTH TWICE DAILY Rx Instructions: TAKE 1 TABLET BY MOUTH TWICE DAILY acetaminophen 325 mg Tablet 650 mg PO Q6H PRN (Reason: Mild Pain (1-3) Or Fever) Qty: 240 0RF sennosides-docusate sodium [Senokot-S] 8.6-50 mg Tablet 1 tab PO BID Qty: 60 0RF propranolol [Inderal LA] 60 mg Capsule,Extended Release 24 Hr 120 mg PO HS Qty: 60 0RF lamotrigine 150 mg tablet 150 mg PO BID Qty: 60 0RF lisinopril 20 mg tablet 20 mg PO DAILY Qty: 30 0RF glimepiride 2 mg tablet 2 mg PO DAILY Qty: 30 0RF montelukast [Singulair] 10 mg tablet 10 mg PO DAILY Qty: 30 0RF metformin 500 mg tablet extended release 24 hr 1,000 mg PO BID Qty: 120 0RF ezetimibe 10 mg tablet 10 mg PO DAILY Qty: 30 0RF Date of admission: 07/30/25 17:45 Primary Care Provider: Jennifer White Admitting Provider: Reyna Hughes Attending physician on admission: Reyna Hughes Condition: Stable Quality VTE Prophylaxis VTE prophylaxis: mechanical ordered
[2025-07-31 14:00] VITALS: BP 124/85; PULSE 67; RESP 18; TEMP 36.8; O2SAT 98
== END 2025-07-31 15:15 | disposition home or self-care (01) | DRG 57 ==
LOC: ANHED 16:48 → ANH3MED 18:50
PROVIDERS: Nurse Practitioner; Student in an Organized Health Care Education/Training Program; Admitting Provider Internal Medicine; Emergency Provider Emergency Medicine; PCP Nurse Practitioner Family; Visit Provider Nurse Practitioner
DX: I69.354 Hemiplegia and hemiparesis following cerebral infarction affecting left non-dominant side (principal); I69.392 Facial weakness following cerebral infarction; I10 Essential (primary) hypertension; E11.42 Type 2 diabetes mellitus with diabetic polyneuropathy; G40.909 Epilepsy, unspecified, not intractable, without status epilepticus; F41.9 Anxiety disorder, unspecified; F32.A Depression, unspecified; F90.9 Attention-deficit hyperactivity disorder, unspecified type; F79 Unspecified intellectual disabilities; Z87.442 Personal history of urinary calculi; Z79.82 Long term (current) use of aspirin
CPT/HCPCS: 36415; 70496; 70498; 70553; 80053; 80061; 81003; 82948; 83036; 83735; 85025; 85610; 85730; 93005; 95816; 96374; 96375; 97161; 99285; A9270; A9577; C8929; G0378; Q9957; Q9967

== ENCOUNTER 2025-08-05 19:16 | Emergency (ER) | payer MEDICARE, MEDICAID, SELFPAY ==
[2025-08-05 19:27] VITALS: BP 105/86; PULSE 110; RESP 18; TEMP 36.1; O2SAT 100
[2025-08-05 19:41] LABS: EDUAAPPEAR Clear; EDUABILI 1+ (Negative); EDUABLOOD Negative (Negative); EDUACOLOR1 Amber; EDUAGLUCOSE Negative (Negative); EDUAKETONE 2+ (Negative); EDUALEUKO Negative (Negative); EDUANITRATE Negative (Negative); EDUAPH 5.5; EDUAPROTEIN 1+ (Negative); EDUASPGRAVITY 1.030; EDUAUROBILI 2.0
--- NOTE | 2025-08-05 19:53 | ED_ITS ---
HPI - Male Genitourinary General Chief complaint: Urogenital-Male Stated complaint: Penis Pain Time Seen by Provider: 08/05/25 19:40 Source: patient and RN notes reviewed Mode of arrival: ambulatory Limitations: no limitations History of Present Illness HPI Narrative: 40-year-old male presents Express Care complaining of rash pain to his scrotum and groin area last 5 days. Patient reports redness, swelling, pain, drainage to his groin area. Patient denies any incontinence. Patient was recently in the hospital discharge on the after being evaluated for CVA. Patient denies any testicular pain, scrotal swelling, scrotal pain, penile pain, penile discharge, dysuria, or any other symptoms. Patient tried eurcerin cream without relief. Related Data Home Medications ?Medication ?Instructions ?Recorded ?Confirmed ?Last Taken ?Type quetiapine 200 mg tablet (Seroquel) 100 mg PO HS 07/2707/29/25 Unknown History clonazepam 0.5 mg tablet 1 mg PO BID 12/22/24 5 05/02/25 History trazodone 50 mg tablet 50 mg PO HS 07/29/25 5 Unknown History clonazepam 1 mg tablet mg 08/05/25 Unknown History propranolol 160 mg capsule,24 mg PO 08/05/25 Unknown History hr,extended release Allergies Allergy/AdvReac Type Severity Reaction Status Date / Time chlorpheniramine Allergy Unknown Other Verified 07/18/25 10:08 naproxen Allergy Unknown Nose Bleed Verified 07/18/25 10:08 phenylephrine Allergy Unknown Other Verified 07/18/25 10:08 scopolamine Allergy Unknown Other Verified 07/18/25 10:08 ANTICHOLINERGICS,OTHER Allergy Unknown Other Uncoded 07/18/25 10:08 Review of Systems Review of Systems: CONSTITUTIONAL: Denies fever, chills, or sweats. EYES: Denies visual changes, redness, or discharge. ENT: Denies rhinorrhea, congestion, sore throat, or otalgia. CARDIOVASCULAR: Denies chest pain, palpitations, or edema. RESPIRATORY: Denies cough or dyspnea. GASTROINTESTINAL: Denies abdominal pain, nausea, vomiting, or diarrhea. GENITOURINARY: Denies dysuria testicular pain, scrotal swelling, or hematuria. Positive for scrotal pain. SKIN: Positive for rash and itching. MUSCULOSKELETAL: Denies back pain, joint pain, or myalgia. NEUROLOGIC: Denies headache, numbness, or weakness. PSYCHIATRIC: Denies anxiety or depression. All other systems reviewed are negative, except as documented in HPI. FOR[facility] Past Medical History Medical History BMI 30.0-30.9,adult Seizure disorder Right middle cerebral artery stroke History of urinary stone (06/2024) Left ureteral stone Anxiety and depression History of arm fracture left distal radius 04/1990 History of chickenpox 04/1990 Diabetes type 2, controlled Migraine headache ADHD Eczema Reflux gastritis HTN (hypertension) Mentally challenged Surgical History Surgical History History of tonsillectomy (2007) Family History Family History Mother Diabetes mellitus Hypertension Pulmonary embolism Seizure Father Diabetes mellitus Heart disease Hypertension Grandparent Diabetes mellitus Heart disease Hypertension Kidney failure Social History Social History Smoking status: Never smoker Second hand tobacco smoke exposure: No Alcohol intake: never Substance use: never Substance use type: does not use and prescription drug Do You Feel Safe in your Home?: Yes Lack of Transportation: No Lack of Food: Never True Current Housing: I Have Housing Concerned About Future Housing: No Difficulty Paying Gas/Electric Bills: No Difficulty Paying for Meds: No Currently Unemployed: No Education: High School Diploma/GED Difficulty w/ Childcare or Family Care: No Living arrangements: with family Occupation/Education: unemployed Gender identity (if verbalized by the patient): Male Spiritual care concerns: No Comments At the time of my signature, I reviewed and agree with the nursing past medical, surgical, social, and family history. There is no relevant family history pertinent to the patient complaint. Exam Narrative: GENERAL: This is a well-nourished, well-developed adult, in no apparent distress. They are non ill-appearing, nontoxic appearing. HEAD: normocephalic, atraumatic. EYES: Sclera clear/white. Conjunctiva normal. Vision is grossly intact. Extraocular movements intact EARS: External ears normal, Hearing grossly intact. NOSE: External nose normal THROAT: Mucous membranes moist, NECK: Neck supple, CARDIOVASCULAR: Regular rate and rhythm RESPIRATORY: Respiratory rate normal, respiratory effort nonlabored, no respiratory distress GENITOURINARY: Testes are normal. No scrotal swelling. Scrotum is erythematous. Inguinal region erythematous with well-defined borders and satellite lesions. There is exudate present. Penis is normal. No area of fluctuance, no induration. SKIN: warm, Dry, intact with no suspicious lesions or rash, good texture and turgor. NEURO: awake, alert, and oriented to person, place and time. There were no obvious focal neurologic abnormalities. EXTREMITIES: No joint tenderness, effusion, or edema noted. Course Course Emergency Course: Portions of this record may have been created with voice recognition software Level of Care: Express Care Visit Vital Signs Vital signs: Vital Signs Temperature 97 F L 08/05/25 19:27 Pulse Rate 110 H 08/05/25 19:27 Respiratory Rate 18 08/05/25 19:27 Blood Pressure 105/86 08/05/25 19:27 Pulse Oximetry 100 08/05/25 19:27 Temperature 97 F L 08/05/25 19:27 Pulse Rate 110 H 08/05/25 19:27 Respiratory Rate 18 08/05/25 19:27 Blood Pressure 105/86 08/05/25 19:27 Pulse Oximetry 100 08/05/25 19:27 Reviewed MDM - Male Genitourinary MDM Narrative Medical decision making narrative: Urine dipstick negative for any evidence of infection. Appears patient likely has tinea cruris will prescribe chlamydia result cream. Michelle BROWNE was present in room as photoengraving sketch maker during genital exam. Advised patient to use a anti friction/moisture powder spray to help with keeping the area dry. Discussed physical exam findings. Advised supportive measures and signs/symptoms to go to the ER. Pt is appropriate for outpt treatment and f/u. Differential Diagnosis Differential diagnosis: Likely other (Jock itch, cellulitis, folliculitis, STI) Lab Data Attestation: I reviewed the patient's lab results. Labs: Lab Results 08/05/25 Range/Units 19:39 POC Urine Color [place] POC Urine Clarity Clear POC Urine pH 5.5 POC Ur Specif [place] 1.030 POC Urine Protein 1+ (Negative) POC Ur Glucose (UA) Negative (Negative) POC Urine Ketones 2+ (Negative) POC Urine Blood Negative (Negative) POC Urine Nitrite Negative (Negative) POC Urine Bilirubin 1+ (Negative) POC Urine Urobilinogen 2.0 POC U Leukocyte Esteras Negative (Negative) Critical Care Time Critical Care Time Critical Care Time: No Discharge Plan Discharge Clinical Impression: Tinea cruris Patient Disposition: Home Condition: Stable Instructions: Skin Yeast Infection (ED) Additional Instructions: Urine is negative for any evidence of infection. Use the clotrimazole cream as directed. You will need to applied is cream for at least 3 weeks. Continue to use the cream 1 week after symptoms resolved. Please keep the area dry, you may use gold Beckett powder or spray to help with friction and moisture. Nystatin powder will be ineffective to treating the yeast infection. Wash the area with mild soap and water and pat dry. Follow-up with PCP in 3-5 days. If you developed worsening redness, swelling, pain, fevers, testicle pain, scrotal swelling, or any serious concerns please go to the ER immediately. Patient Language: Sammarinese Prescriptions: New clotrimazole 1 % cream 1 applic topical BID 28 Days Qty: 90 0RF No Action quetiapine [Seroquel] 200 mg tablet 100 mg PO HS clonazepam 0.5 mg tablet 1 mg PO BID propranolol 160 mg capsule,extended release 24 hr PO clonazepam 1 mg tablet nortriptyline 50 mg capsule 50 mg PO QHS Qty: 90 0RF Nurtec ODT 75 mg tablet,disintegrating 75 mg PO ONCE PRN (Reason: migraine headache) Qty: 16 1RF Rx Instructions: as a single dose (DME) blood-glucose meter [Accu-Chek Guide Me Glucose Mtr] [facility] [place] See Rx Instructions .Route Qty: 1 0RF Rx Instructions: daily (DME) Accu-Chek Guide test strips Strip See Rx Instructions .Route Qty: 100 3RF Rx Instructions: daily (DME) lancets [Advanced Travel Lancets] 28 gauge misc See Rx Instructions .Route Qty: 100 3RF Rx Instructions: daily aspirin 81 mg Tablet,Delayed Release (Dr/Ec) 81 mg PO QAM Qty: 30 0RF trazodone 50 mg tablet 50 mg PO HS rosuvastatin 20 mg tablet 20 mg PO DAILY Qty: 90 2RF pantoprazole 40 mg tablet,delayed release (DR/EC) See Rx Instructions .ROUTE .COMPLEX Qty: 180 2RF Dose Instruction: TAKE 1 TABLET BY MOUTH TWICE DAILY Rx Instructions: TAKE 1 TABLET BY MOUTH TWICE DAILY acetaminophen 325 mg Tablet 650 mg PO Q6H PRN (Reason: Mild Pain (1-3) Or Fever) Qty: 240 0RF sennosides-docusate sodium [Senokot-S] 8.6-50 mg Tablet 1 tab PO BID Qty: 60 0RF propranolol [Inderal LA] 60 mg Capsule,Extended Release 24 Hr 120 mg PO HS Qty: 60 0RF lamotrigine 150 mg tablet 150 mg PO BID Qty: 60 0RF lisinopril 20 mg tablet 20 mg PO DAILY Qty: 30 0RF glimepiride 2 mg tablet 2 mg PO DAILY Qty: 30 0RF montelukast [Singulair] 10 mg tablet 10 mg PO DAILY Qty: 30 0RF metformin 500 mg tablet extended release 24 hr 1,000 mg PO BID Qty: 120 0RF ezetimibe 10 mg tablet 10 mg PO DAILY Qty: 30 0RF Follow-up/Referrals: Earnest Santos MD [Primary Care Provider, Family Practice] Time of Disposition: 19:51
== END 2025-08-05 19:54 | disposition home or self-care (01) ==
PROVIDERS: PCP Family Medicine Adolescent Medicine
DX: B35.6 Tinea cruris (principal); E11.9 Type 2 diabetes mellitus without complications; Z79.84 Long term (current) use of oral hypoglycemic drugs; I10 Essential (primary) hypertension; F79 Unspecified intellectual disabilities; G40.909 Epilepsy, unspecified, not intractable, without status epilepticus; Z79.82 Long term (current) use of aspirin; Z86.73 Personal history of transient ischemic attack (TIA), and cerebral infarction without residual deficits; F41.9 Anxiety disorder, unspecified; F32.A Depression, unspecified
CPT/HCPCS: 81003; 99213; G0463

== ENCOUNTER 2025-08-19 10:00 | Outpatient (RCR) | payer MEDICARE, MEDICAID, SELFPAY ==
--- NOTE | 2025-05-28 09:43 | OPREHPOC ---
Outpatient Therapy Plan of Care This is a Multidisciplinary Plan of Care that may contain components documented by all disciplines (PT, OT, and ST.) ST Problem 1 ST Problem #[address] Goal 1 Goal / Goal Update The patient will participate in home programming to improve carry over/generalization of skills to the home environment. Target Visit [address] Problem #[address] Goal 1 Goal / Goal Update Dysphagia: 1. The patient will complete lingual/labial ROM exercises with 80% minimal cues 2. The patient will complete tongue base exercises 80% minimal cues 3. The patient will demonstrate use of dysphagia strategies: small bites, slow rate, alternate bites and drinks/or tongue sweep 80% minimla cues Target Visit 10 ST Goal 2 Goal / Goal Update Dysarthria: 1. The patient will produce conversational speech 85% intelligible with use of compensatory speech techniques. 2. The patient will state compensatory speech techniques. Target Visit 10
--- NOTE | 2025-05-28 09:43 | STOPEVAL1 ---
Assessment and note entered by Kirsten Luevano, SEWING MACHINE OPERATOR PLASTIC ZIPPER Evaluation Information Assessment Status Evaluation Diagnosis I69.391 ICD-10 Condition Codes (ST) Dysphagia following other cerebrovascular disease I69.891 Subjective Information The patient is a 40 year old male referred for speech services secondary to the onset of dysphagia following a recent CVA in April 2025. Speech services to addressing remaining dysphagia impairments for oral dysphagia. The patient reports he had a repeat MBS study while at [facility] and was advanced to a regular diet with thin liquid and no straw. He is taking his pills with applesauce and adds gravy or ranch dressing to meats. Reported Pain Level Pain Score 0: Self Report Assessment ST Clinical Summary The patient is a 40 year old male referred for speech services secondary to the onset of dysphagia following a recent CVA in April 2025. Speech services to addressing remaining dysphagia impairments for oral dysphagia. The patient reports he had a repeat MBS study while at [facility] and was advanced to a regular diet with thin liquid and no straw. He is taking his pills with applesauce and adds gravy or ranch dressing to meats. The patient was seen for a swallow evaluation and presented the following consistencies: thin liquid via a cup/no straw, puree/applesauce, and cracker consistency. Oral Motor Movement Exam: Limited lingual ROM for elevating the tongue and lateralization, decreased labial seal on the left side with noted left labial droop. Oral Stage: Delayed oral preparation for solid and cracker consistencies with mild oral residual remaining n the left lateral sulcus. Able to clear with alternating bites and drinks and cues for lingual sweep. Pharyngeal Stage: timely swallow initiation across consistencies no clinical signs of aspiration noted. Recommend ST services 1x a week for 10 visits to address oral dysphagia and reduced lingual/labial ROM impacting speech and swallowing. Plan of Care Interventions Treatment of Speech,Treatment of Swallowing Dysfunction ST Services Indicated Yes Treatment Frequency and 1x week/ 10 visits Duration These treatments will address the objective and functional deficits as defined above. The patient will be advanced safely and appropriately in order for the patient to progress towards his/her prior level of function. Additional exercises will be introduced and as well as a comprehensive home exercise program upon discharge, if needed, ?to ensure carryover of functional gains achieved in the clinic. This treatment plan has been reviewed and agreement upon by the patient.
--- NOTE | 2025-05-28 11:03 | OTOPEVAL1 ---
Assessment and note entered by ARON Leslie/Mohan, KAMALA OT Evaluation Information 05/28/25 Assessment Status Evaluation Diagnosis Left hemiparesis, CVA Subjective Information Patient presented to the ED on 05/03/25 with left sided weakness/facial droop. He was admitted and diagnosed with an acute CVA. He discharged to acute inpatient rehab for about a week and discharged home. Pt lives at home with his grandmother, mom, sister, and his sister's 2 children. Since returning home from rehab he states he has returned to being independent with bathing and dressing. He has not returned to doing his own laundry (laundry is in the basement and he does not feel like his arm could carry a basket up/down the steps). He reports his left arm feels weak and that the other day he tried to get something out of the oven with both arms and he made a mess. He also notes difficulties with fine motor tasks, such as pinching containers/bags to open. He is currently sleeping in the living room due to his bedroom being in the basement. Assessment OT Clinical Summary Patient referred to OT s/p CVA with residual left sided weakness that interferes with his ability to complete fine motor tasks and household tasks. Skilled OT indicated to maximize functional strength, coordination, and independence with ADLs via therapeutic exercises, activities, and HEP instruction/progression. Plan of Care Interventions Therapeutic Exercise,Neuro Re-education, Therapeutic Activities OT Services Indicated Yes Treatment Frequency and 2x/week for 8 visits Duration These treatments will address the objective and functional deficits as defined above. The patient will be advanced safely and appropriately in order for the patient to progress towards his/her prior level of function. Additional exercises will be introduced and as well as a comprehensive home exercise program upon discharge, if needed, ?to ensure carryover of functional gains achieved in the clinic. This treatment plan has been reviewed and agreement upon by the patient.
--- NOTE | 2025-05-28 11:03 | OPREHPOC ---
Outpatient Therapy Plan of Care This is a Multidisciplinary Plan of Care that may contain components documented by all disciplines (PT, OT, and ST.) OT Problem 1 OT Problem #1 Knowledge Deficit OT Goal 1 Goal / Goal Update 1. Pt to be indep. with instructed materials. Target Visit 8 OT Problem 2 OT Problem #2 Impaired Coordination OT Goal 1 Goal / Goal Update 1. Patient to increase left hand fine motor coordination for ADLs as measured by being able to complete the 9-hole peg test with the left hand in 60 sec or less. Target Visit 8 OT Problem 3 OT Problem #3 Impaired Strength OT Goal 1 Goal / Goal Update 1. Patient to increase (L) shoulder flexion strength to 4+/5 to increase strength for ADLs, lifting, and carrying. 2. Patient to increase (L) biceps strength to 5/5 to increase strength for carrying laundry basket. 3. Patient to increase gross (L) wrist strength to 4+/5 to increase strength to lift items out of the oven. 4. Patient to increase (L) wet end operator strength by 10 lbs . to increase wet end operator for ADLs. Target Visit [address] Problem #[address] Goal 1 Goal / Goal Update The patient will participate in home programming to improve carry over/generalization of skills to the home environment. Target Visit [address] Problem #[address] Goal 1 Goal / Goal Update Dysphagia: 1. The patient will complete lingual/labial ROM exercises with 80% minimal cues 2. The patient will complete tongue base exercises 80% minimal cues 3. The patient will demonstrate use of dysphagia strategies: small bites, slow rate, alternate bites and drinks/or tongue sweep 80% minimla cues Target Visit 10 ST Goal 2 Goal / Goal Update Dysarthria: 1. The patient will produce conversational speech 85% intelligible with use of compensatory speech techniques. 2. The patient will state compensatory speech techniques. Target Visit 10
--- NOTE | 2025-06-10 15:28 | PTOPEVDC ---
Assessment and note entered by Greer Liao, PT Thank you for referring Carlos Cohn to [facility].? An evaluation has been completed. No further treatment is needed. Evaluation/ Discharge Report Assessment Status Evaluation ICD-10 Condition Codes (PT) Difficulty Walking R26.2,Abnormalities of gait and mobility R26.9,Weakness R53.1 Other ICD-10 Condition Codes ( CVA L hemiparesis PT) Onset 05-03-25 Subjective Information after hospitalization, went to in pt rehab; since home, have not had any falls; have been walking outside and doing the leg exercises from rehab with 2# velcro weights; able to lift my 6 yr old nephew from the floor and up to my shoulders; mom is not letting him carry the laundry basket into the basement, to be safe; pt has decreased mental functioning and is not able to read prior activity: live with mom, grandma, sister and her 2 young children; activity- mowed yards, independent with mobility and self care; does not drive; his bedroom is in the basement, with 2 hand rails; now: decreased activity: basement-have been down there a few times but not sleeping down there yet , staying on the main level; feels comfortable walking goal: get legs stronger, be able to do the stairs and carry laundry basket Reported Pain Level Pain Score 0: Self Report Assessment PT Clinical Summary Carlos is s/p CVA in April. He is receiving OT and Speech services. Prior to CVA, he lived with family and was independent, with self and home activities. And mowed yards. With the evaluation: all testing was WNL: Thompson balance score 56/56; 2 minute walking test distance of 450'; 5 reps sit/stand time of 15 seconds; good gait pattern; up/down 12 steps without hand railing and alternate step pattern and able to carry a 10# crate on the 12 stairs; Skilled PT services are not indicated. Pt is safe with mobility and he will continue with OT and Speech treatments. Plan of Care PT Services Indicated No
--- NOTE | 2025-06-28 14:02 | OTOPDC ---
Assessment and note entered by Aiden Sher, OTR/L, ALLYSONT OT D/C Summary 06/28/25 Assessment Status Discharge Diagnosis Left hemiparesis, CVA Onset 05/03/25 Subjective Information Patient reports functional progress with ADLs/ IADLs. He states he is now able to carry a laundry basket up and down the stairs. He reports his left arm feels stronger and he feels more confident with being able to take items out of the oven with both UEs. He also reports improvements with fine motor tasks, no difficulties with tying shoes or buttoning buttons. He also notes the sensation is returning in his left finger tips. Pain Score 0: Self Report Assessment OT Clinical Summary Patient referred to OT s/p CVA with residual left sided weakness. He has made excellent progress with therapy. Progress noted with improved MMT of the left UE and is now WFL. Left personnel technician strength improved from 66 to 89 lbs. Left fine motor skills , as measured by the 9-hole peg test, improved from being able to complete the test in 113 seconds to 53 seconds. He has returned to being able to complete ADLs and household tasks. No further skilled OT indicated at this time. D/C OT with goals met and patient independent with HEP. OT Services Indicated No
--- NOTE | 2025-06-28 14:02 | OTOPDC ---
Assessment and note entered by Aiden Sher, ARON/Mohan, CHT Evaluation Information Assessment Status Discharge Diagnosis Left hemiparesis, CVA Onset 05/03/25 Subjective Information Patient reports functional progress with ADLs/ IADLs. He states he is now able to carry a laundry basket up and down the stairs. He reports his left arm feels stronger and he feels more confident with being able to take items out of the oven with both UEs. He also reports improvements with fine motor tasks, no difficulties with tying shoes or buttoning buttons. He also notes the sensation is returning in his left finger tips. Reported Pain Level Pain Score 0: Self Report Assessment OT Clinical Summary Patient referred to OT s/p CVA with residual left sided weakness. He has made excellent progress with therapy. Progress noted with improved MMT of the left UE and is now WFL. Left sales training manager strength improved from 66 to 89 lbs. Left fine motor skills , as measured by the 9-hole peg test, improved from being able to complete the test in 113 seconds to 53 seconds. He has returned to being able to complete ADLs and household tasks. No further skilled OT indicated at this time. D/C OT with goals met and patient independent with HEP. Plan of Care OT Services Indicated No
--- NOTE | 2025-06-28 14:02 | OPREHPOC ---
Outpatient Therapy Plan of Care This is a Multidisciplinary Plan of Care that may contain components documented by all disciplines (PT, OT, and ST.) OT Problem 1 OT Problem #1 Knowledge Deficit OT Goal 1 Goal / Goal Update 1. Pt to be indep. with instructed materials. ---OT D/C 06/28/25--- 1. Met Target Visit 8 OT Problem 2 OT Problem #2 Impaired Coordination OT Goal 1 Goal / Goal Update 1. Patient to increase left hand fine motor coordination for ADLs as measured by being able to complete the 9-hole peg test with the left hand in 60 sec or less. ---OT D/C 06/28/25--- 1. Met Target Visit 8 OT Problem 3 OT Problem #3 Impaired Strength OT Goal 1 Goal / Goal Update 1. Patient to increase (L) shoulder flexion strength to 4+/5 to increase strength for ADLs, lifting, and carrying. 2. Patient to increase (L) biceps strength to 5/5 to increase strength for carrying laundry basket. 3. Patient to increase gross (L) wrist strength to 4+/5 to increase strength to lift items out of the oven. 4. Patient to increase (L) alumni relations coordinator strength by 10 lbs . to increase alumni relations coordinator for ADLs. ---OT D/C 06/28/25--- 1. Met 2. Met 3. Met 4. Met Target Visit [address] Problem #[address] Goal 1 Goal / Goal Update The patient will participate in home programming to improve carry over/generalization of skills to the home environment. Target Visit [address] Problem #[address] Goal 1 Goal / Goal Update Dysphagia: 1. The patient will complete lingual/labial ROM exercises with 80% minimal cues 2. The patient will complete tongue base exercises 80% minimal cues 3. The patient will demonstrate use of dysphagia strategies: small bites, slow rate, alternate bites and drinks/or tongue sweep 80% minimla cues Target Visit 10 ST Goal 2 Goal / Goal Update Dysarthria: 1. The patient will produce conversational speech 85% intelligible with use of compensatory speech techniques. 2. The patient will state compensatory speech techniques. Target Visit 10
--- NOTE | 2025-07-23 11:07 | PCSTNOTE ---
Patient called & cancelled scheduled appointment this date due to sick
--- NOTE | 2025-07-30 13:09 | PCSTNOTE ---
Patient called & cancelled scheduled appointment this date due to in hospital for tests.
--- NOTE | 2025-08-06 12:54 | OPREHPOC ---
Outpatient Therapy Plan of Care This is a Multidisciplinary Plan of Care that may contain components documented by all disciplines (PT, OT, and ST.) OT Problem 1 OT Problem #1 Knowledge Deficit OT Goal 1 Goal / Goal Update 1. Pt to be indep. with instructed materials. ---OT D/C 06/28/25--- 1. Met Target Visit 8 OT Problem 2 OT Problem #2 Impaired Coordination OT Goal 1 Goal / Goal Update 1. Patient to increase left hand fine motor coordination for ADLs as measured by being able to complete the 9-hole peg test with the left hand in 60 sec or less. ---OT D/C 06/28/25--- 1. Met Target Visit 8 OT Problem 3 OT Problem #3 Impaired Strength OT Goal 1 Goal / Goal Update 1. Patient to increase (L) shoulder flexion strength to 4+/5 to increase strength for ADLs, lifting, and carrying. 2. Patient to increase (L) biceps strength to 5/5 to increase strength for carrying laundry basket. 3. Patient to increase gross (L) wrist strength to 4+/5 to increase strength to lift items out of the oven. 4. Patient to increase (L) patient scheduler strength by 10 lbs . to increase patient scheduler for ADLs. ---OT D/C 06/28/25--- 1. Met 2. Met 3. Met 4. Met Target Visit [address] Problem #[address] Goal 1 Goal / Goal Update The patient will participate in home programming to improve carry over/generalization of skills to the home environment. Patient is utilizing his HEP provided. Target Visit [address] Problem 2 ST Problem #[address] Goal 1 Goal / Goal Update Dysphagia: 1. The patient will complete lingual/labial ROM exercises with 80% minimal cues 08/06/25 Update: Completed with 83% accuracy. 2. The patient will complete tongue base exercises 80% minimal cues 08/06/25 Update: Completed with 80% minimal cues 3. The patient will demonstrate use of dysphagia strategies: small bites, slow rate, alternate bites and drinks/or tongue sweep 80% minimal cues 08/06/25 Update: Utilizing swallow strategies with 90% accuracy. Target Visit [address] Goal 2 Goal / Goal Update Dysphagia: 1. The patient will complete lingual/labial ROM exercises with 85% minimal cues. 2. The patient will complete tongue base exercises with 85% minimal cues. Target Visit 10 ST Goal 1 Goal / Goal Update Dysarthria: 1. The patient will produce conversational speech 85% intelligible with use of compensatory speech techniques. 08/06/25 Update: Producing conversation speech with strategies and 80-83% 2. The patient will state compensatory speech techniques. 08/06/25 Update: Using stated strategies 80% of time. Progress Partially Met ST Goal 2 Goal / Goal Update Dysarthria: 1. The patient will produce conversational speech 85% intelligible with use of compensatory speech strategies. 2. The patient will state and demonstrate compensatory techniques minimal cues to independent.
--- NOTE | 2025-08-06 12:54 | STOPEVAL1 ---
Assessment and note entered by Kirsten Luevano [employer] Evaluation Information Assessment Status Re-evaluation Reported Pain Level Pain Score 0: Self Report Assessment ST Clinical Summary Initial Evaluation: The patient is a 40 year old male referred for speech services secondary to the onset of dysphagia following a recent CVA in April 2025. Speech services to addressing remaining dysphagia impairments for oral dysphagia. The patient reports he had a repeat MBS study while at [facility] and was advanced to a regular diet with thin liquid and no straw. He is taking his pills with applesauce and adds gravy or ranch dressing to meats. The patient was seen for a swallow evaluation and presented the following consistencies: thin liquid via a cup/no straw, puree/applesauce, and cracker consistency. Oral Motor Movement Exam: Limited lingual ROM for elevating the tongue and lateralization, decreased labial seal on the left side with noted left labial droop. Oral Stage: Delayed oral preparation for solid and cracker consistencies with mild oral residual remaining n the left lateral sulcus. Able to clear with alternating bites and drinks and cues for lingual sweep. Pharyngeal Stage: timely swallow initiation across consistencies no clinical signs of aspiration noted. Recommend ST services 1x a week for 10 visits to address oral dysphagia and reduced lingual/labial ROM impacting speech and swallowing. Re-evaluation 08/06/25: The patient was scheduled for discharge on this date had been making noted progress with all goals to include lingual and labial ROM and speech intelligibility in simple conversation exchange. However, within the previous week prior to discharge the patient was admitted to the hospital with new onset CVA/ TIA and increased left labial facial droop and reduced lingual ROM with increased dysarthria. Patient and family concerned with changes in speech since hospitalization. Evaluation results today reveal reduced lingual direction accuracy and rate of movement for lateralization, elevation, and circular movement. Reduced labial strength and direction and accuracy with lateralization and increased labial droop. Mild dysarthria with decreased intelligibility at conversation and sentence level due to rate, oral motor movement control for precise articulation. Sentences 85% intelligible Conversation 80% intelligible. Recommend Speech Therapy Services 1x a week x 5 visits. Plan of Care Interventions Treatment of Speech,Treatment of Swallowing Dysfunction ST Services Indicated Yes Treatment Frequency and 1x week/ 10 visits Duration These treatments will address the objective and functional deficits as defined above. The patient will be advanced safely and appropriately in order for the patient to progress towards his/her prior level of function. Additional exercises will be introduced and as well as a comprehensive home exercise program upon discharge, if needed, ?to ensure carryover of functional gains achieved in the clinic. This treatment plan has been reviewed and agreement upon by the patient.
== END 2025-08-26 23:59 | disposition home or self-care (01) ==
LOC: ANHST 10:00
PROVIDERS: PCP Family Medicine Adolescent Medicine; Referring Provider Internal Medicine; Visit Provider Family Medicine Adolescent Medicine
DX: I69.391 Dysphagia following cerebral infarction (principal); G81.94 Hemiplegia, unspecified affecting left nondominant side; R26.9 Unspecified abnormalities of gait and mobility
CPT/HCPCS: 92507; 92523; 92526; 92610; 97110; 97112; 97161; 97530

== ENCOUNTER 2025-09-09 10:00 | Outpatient (RCR) | payer MEDICARE, MEDICAID, SELFPAY ==
--- NOTE | 2025-09-09 10:35 | STOPDC ---
Assessment and note entered by Kirsten Luevano [employer] Evaluation Information Assessment Status Discharge Reported Pain Level Pain Score 0: Self Report Assessment ST Clinical Summary Initial Evaluation: The patient is a 40 year old male referred for speech services secondary to the onset of dysphagia following a recent CVA in April 2025. Speech services to addressing remaining dysphagia impairments for oral dysphagia. The patient reports he had a repeat MBS study while at [facility] and was advanced to a regular diet with thin liquid and no straw. He is taking his pills with applesauce and adds gravy or ranch dressing to meats. The patient was seen for a swallow evaluation and presented the following consistencies: thin liquid via a cup/no straw, puree/applesauce, and cracker consistency. Oral Motor Movement Exam: Limited lingual ROM for elevating the tongue and lateralization, decreased labial seal on the left side with noted left labial droop. Oral Stage: Delayed oral preparation for solid and cracker consistencies with mild oral residual remaining n the left lateral sulcus. Able to clear with alternating bites and drinks and cues for lingual sweep. Pharyngeal Stage: timely swallow initiation across consistencies no clinical signs of aspiration noted. Recommend ST services 1x a week for 10 visits to address oral dysphagia and reduced lingual/labial ROM impacting speech and swallowing. Re-evaluation 08/06/25: The patient was scheduled for discharge on this date had been making noted progress with all goals to include lingual and labial ROM and speech intelligibility in simple conversation exchange. However, within the previous week prior to discharge the patient was admitted to the hospital with new onset CVA/ TIA and increased left labial facial droop and reduced lingual ROM with increased dysarthria. Patient and family concerned with changes in speech since hospitalization. Evaluation results today reveal reduced lingual direction accuracy and rate of movement for lateralization, elevation, and circular movement. Reduced labial strength and direction and accuracy with lateralization and increased labial droop. Mild dysarthria with decreased intelligibility at conversation and sentence level due to rate, oral motor movement control for precise articulation. Sentences 85% intelligible Conversation 80% intelligible. Recommend Speech Therapy Services 1x a week x 5 visits. Discharge 09/09/05: The patient has achieved all goals and is independent with HEP for speech intelligibility and oral motor exercises. Thank you for the consult. Plan of Care ST Services Indicated No
== END 2025-09-09 13:09 | disposition home or self-care (01) ==
LOC: ANHST 10:00
PROVIDERS: PCP Family Medicine Adolescent Medicine; Referring Provider Internal Medicine; Visit Provider Family Medicine Adolescent Medicine
DX: I69.391 Dysphagia following cerebral infarction (principal); G81.94 Hemiplegia, unspecified affecting left nondominant side; R26.9 Unspecified abnormalities of gait and mobility
CPT/HCPCS: 92507

== ENCOUNTER 2025-10-29 11:01 | Emergency (ER) | payer MEDICARE, MEDICAID, SELFPAY ==
[2025-10-29 11:15] VITALS: BP 124/80; PULSE 68; RESP 18; TEMP 36.1; O2SAT 100
--- NOTE | 2025-10-29 11:45 | ED.URI ---
HPI - URI/Sore Throat General Chief Complaint: Upper Respiratory Infection Stated Complaint: SORE THROAT/SINUS Time Seen by Provider: 10/29/25 11:46 Source: patient, RN notes reviewed and old records reviewed Mode of arrival: ambulatory Limitations: no limitations History of Present Illness HPI Narrative: 40-year-old male presents to the [facility] with complaints of a sore throat and sinus drainage for 1 week. Reports nasal green discharge. Has been taking Mucinex as well as Tylenol. Denies fevers. Onset (ago): week(s) (1) Treatments prior to arrival: acetaminophen and cold medicine Related Data Home Medications ?Medication ?Instructions ?Recorded ?Confirmed ?Last Taken ?Type quetiapine 200 mg tablet (Seroquel) 100 mg PO HS 07/27/22 10/01/25 Unknown History clonazepam 0.5 mg tablet 1 mg PO BID 12/22/24 10/01/25 05/02/25 History trazodone 50 mg tablet 50 mg PO HS 07/29/25 10/01/25 Unknown History propranolol 160 mg capsule,24 mg PO 08/05/25 10/01/25 Unknown History hr,extended release Allergies Allergy/AdvReac Type Severity Reaction Status Date / Time chlorpheniramine Allergy Unknown Other Verified 10/29/25 11:26 naproxen Allergy Unknown Nose Bleed Verified 10/29/25 11:26 phenylephrine Allergy Unknown Other Verified 10/29/25 11:26 scopolamine Allergy Unknown Other Verified 10/29/25 11:26 ANTICHOLINERGICS,OTHER Allergy Unknown Other Uncoded 10/01/25 13:15 Review of Systems Review of Systems: All systems reviewed & are unremarkable except as noted in HPI and below Constitutional: Constitutional: Reports no additional constitutional complaints ENT: Reports as per HPI, Reports nasal congestion, Reports nasal discharge and Reports sore throat Cardiovascular: Cardiovascular: Reports no additional cardiovascular complaints, Denies chest pain and Denies dyspnea Respiratory: Respiratory: Reports no additional respiratory complaints, Denies chest congestion, Denies cough and Denies dyspnea Musculoskeletal: Musculoskeletal: Reports no additional musculoskeletal complaints Integumentary/Breasts: Skin/Breast: Reports system reviewed and no additional complaints, except as docu PMFSH Past Medical History Medical History Cerebrovascular accident (CVA) with left hemiparesis BMI 30.0-30.9,adult Seizure disorder Right middle cerebral artery stroke History of urinary stone (06/2024) Left ureteral stone Anxiety and depression History of arm fracture left distal radius 04/1990 History of chickenpox 04/1990 Diabetes type 2, controlled Migraine headache ADHD Eczema Reflux gastritis HTN (hypertension) Mentally challenged Surgical History Surgical History History of tonsillectomy (2007) Family History Family History Mother Diabetes mellitus Hypertension Pulmonary embolism Seizure Father Diabetes mellitus Heart disease Hypertension Grandparent Diabetes mellitus Heart disease Hypertension Kidney failure Social History Social History Smoking status: Never smoker Second hand tobacco smoke exposure: No Alcohol intake: never Substance use: never Substance use type: does not use and prescription drug Lack of Transportation: No Lack of Food: Never True Current Housing: I Have Housing Concerned About Future Housing: No Difficulty Paying Gas/Electric Bills: No Difficulty Paying for Meds: No Currently Unemployed: No Education: High School Diploma/GED Difficulty w/ Childcare or Family Care: No Living arrangements: with family Occupation/Education: unemployed Gender identity (if verbalized by the patient): Male Spiritual care concerns: No Comments At the time of my signature, I reviewed and agree with the nursing past medical, surgical, social, and family history. There is no relevant family history pertinent to the patient complaint. Exam Const: General: cooperative, healthy appearing, comfortable, no acute distress, well developed, alert and well nourished Nutritional Appearance: well nourished Orientation/consciousness: patient oriented x3 Limitations: no limitations HENMT: Head: normal to inspection Ears: hearing grossly normal bilaterally, external ears normal, TM's normal bilaterally, EAC's normal, mastoids normal and no periauricular adenopathy Face and sinus: normal facial exam, sinuses nontender and face symmetric Mouth: Yes Normal oral and palatal mucosa present, Yes lip normal, Yes tongue normal and Yes moist mucous membranes Throat: posterior oropharynx normal, uvula midline, postnasal drainage and no uvular edema Eyes: General: appearance normal, both eyes and all related structures Alignment and Position: alignment normal Neck: Neck: normal visual inspection, full ROM, no lymphadenopathy and no meningeal signs Chest: Chest palpation & inspection: normal inspection of the chest Resp: Effort & Inspection: normal respiratory effort and able to speak in complete sentences Auscultation: clear to auscultation bilaterally, no crackles, no rales, no rhonchi and no wheezes Cardio: Rate: regular rate Skin: General skin exam: normal color and no rashes or lesions noted Neuro: General: patient oriented x3, gait normal, moves all extremities and no meningeal signs Cognition (Neuro): normal cognition Speech: normal speech Gait exam (Neuro): Normal gait present Extrem: General: normal to inspection, full ROM, capillary refill normal and normal gait Psych: Appearance: grossly normal and well kempt Mental Status: mental status grossly normal Speech and movement: Normal speech and movement present and Clear speech present Affect: normal affect Attitude: cooperative Course Course Level of Care: Express Care Visit Vital Signs Vital signs: Vital Signs Temperature 96.9 F L 10/29/25 11:15 Pulse Rate 68 10/29/25 11:15 Respiratory Rate 18 10/29/25 11:15 Blood Pressure 124/80 10/29/25 11:15 Pulse Oximetry 100 10/29/25 11:15 Oxygen Delivery Room Air 10/29/25 11:15 Temperature 96.9 F L 10/29/25 11:15 Pulse Rate 68 10/29/25 11:15 Respiratory Rate 18 10/29/25 11:15 Blood Pressure 124/80 10/29/25 11:15 Pulse Oximetry 100 10/29/25 11:15 Oxygen Delivery Room Air 10/29/25 11:15 reviewed MDM MDM Narrative Medical decision making narrative: Patient sitting in exam room. Patient is nontoxic, vitals stable. Patient presents with 1 week history of sore throat and sinus drainage. Patient strep positive. Patient is appropriate for outpatient treatment with close follow-up Discharge instructions reviewed with patient, as well as provided in writing per nursing staff. The instructions also include specific and strict return/GO TO THE ER as well as f/u information. All questions have been answered, and the patient deny any further questions with discharge and discharge plan. Some parts of this dictation were generated by voice recognition software and may contain typographical and/or grammatical inaccuracies. Differential Diagnosis Differential Diagnosis: Differential diagnostic considerations for upper respiratory infection include upper respiratory infection, croup, otitis media, sinusitis, viral infection, bronchitis, influenza, pharyngitis, strep, uvulitis.? Medical Records I have reviewed the following patient records and this information was taken into consideration when formulating the assessment and plan.: previous ER visits and previous clinic visits Lab Data Labs: Lab Results 10/29/25 Range/Units 11:59 POC Grp A Strep Screen Positive (Negative) reviewed Discharge Plan Discharge Clinical Impression: Strep pharyngitis Patient Disposition: Home Condition: Stable Instructions: Antibiotic Form, Strep Throat (ED) Additional Instructions: After 24-48 hours on antibiotics, Throw the toothbrush away, start using a new one. Please be sure to wash bed linens especially pillow cases. Repeat once you finish the antibiotics. Do not share drinks. Take Motrin alternating with Tylenol for pain and fever alternating every 4 hours. Increase fluids, avoid caffeine. Give plenty of water, juice, Gatorade, Pedialyte, ice pops in Jell-O Follow up with Primary provider if not getting better this week For new or worsening symptoms go directly to the emergency room Patient Language: Yemeni Prescriptions: New amoxicillin 875 mg tablet 875 mg PO Q12H Qty: 20 0RF No Action quetiapine [Seroquel] 200 mg tablet 100 mg PO HS clonazepam 0.5 mg tablet 1 mg PO BID propranolol 160 mg capsule,extended release 24 hr PO Nurtec ODT 75 mg tablet,disintegrating 75 mg PO ONCE PRN (Reason: migraine headache) Qty: 16 1RF Rx Instructions: as a single dose (DME) blood-glucose meter [Accu-Chek Guide Me Glucose Mtr] [facility] [place] See Rx Instructions .Route Qty: 1 0RF Rx Instructions: daily (DME) Accu-Chek Guide test strips Strip See Rx Instructions .Route Qty: 100 3RF Rx Instructions: daily (DME) lancets [Advanced Travel Lancets] 28 gauge [facility] [place] See Rx Instructions .Route Qty: 100 3RF Rx Instructions: daily lamotrigine 200 mg tablet 200 mg PO BID Qty: 60 6RF aspirin 81 mg Tablet,Delayed Release (Dr/Ec) 81 mg PO QAM Qty: 30 0RF trazodone 50 mg tablet 50 mg PO HS rosuvastatin 20 mg tablet 20 mg PO DAILY Qty: 90 2RF pantoprazole 40 mg tablet,delayed release (DR/EC) See Rx Instructions .ROUTE .COMPLEX Qty: 180 2RF Dose Instruction: TAKE 1 TABLET BY MOUTH TWICE DAILY Rx Instructions: TAKE 1 TABLET BY MOUTH TWICE DAILY nortriptyline 50 mg capsule 50 mg PO QHS Qty: 90 2RF glimepiride 2 mg tablet 2 mg PO DAILY Qty: 90 1RF lisinopril 20 mg tablet 20 mg PO DAILY Qty: 90 1RF sennosides-docusate sodium [Senokot-S] 8.6-50 mg Tablet 1 tab PO BID Qty: 60 0RF montelukast [Singulair] 10 mg tablet 10 mg PO DAILY Qty: 30 0RF metformin 500 mg tablet extended release 24 hr 1,000 mg PO BID Qty: 120 0RF ezetimibe 10 mg tablet 10 mg PO DAILY Qty: 30 0RF Follow-up/Referrals: Jennifer White APRN [Primary Care Provider, Family Practice] - 2 Weeks Clinical Impression: Strep pharyngitis Stand Alone Forms: Work/School Release IP Time of Disposition: 11:57
[2025-10-29 12:02] LABS: EDSTREPNEGPOS1 Positive (Negative)
== END 2025-10-29 12:03 | disposition home or self-care (01) ==
PROVIDERS: Emergency Provider Nurse Practitioner; PCP Nurse Practitioner Family
DX: J02.0 Streptococcal pharyngitis (principal); I10 Essential (primary) hypertension; E11.9 Type 2 diabetes mellitus without complications; Z79.84 Long term (current) use of oral hypoglycemic drugs; I69.354 Hemiplegia and hemiparesis following cerebral infarction affecting left non-dominant side; F41.9 Anxiety disorder, unspecified; F79 Unspecified intellectual disabilities
CPT/HCPCS: 87880; 99213; G0463

== ENCOUNTER 2025-11-11 19:05 | Emergency (ER) | payer MEDICARE, MEDICAID, SELFPAY ==
[2025-11-11 19:24] VITALS: BP 118/84; PULSE 73; RESP 16; TEMP 36; O2SAT 97
--- NOTE | 2025-11-11 19:24 | ED_ITS ---
HPI - General Adult General Chief complaint: Skin/Abscess/Foreign Body Stated complaint: hemorrhoids Time Seen by Provider: 11/11/25 19:42 Source: patient and RN notes reviewed Mode of arrival: ambulatory Limitations: dementia History of Present Illness HPI narrative: 40-year-old male presents with concern for rectal pain and concern for hemorrhoids. Reports for about he has had rectal pain for a couple weeks and it has gotten worse. Reports he has not been straining or constipated. He reports he has tried [id number] cream without relief. He denies any skin redness, swelling, warmth, tenderness. Denies general malaise, fever, body aches, chills, sweats. MD complaint: Rectal Pain Related Data Home Medications ?Medication ?Instructions ?Recorded ?Confirmed ?Last Taken ?Type quetiapine 200 mg tablet (Seroquel) 100 mg PO HS 07/2710/01/25 Unknown History clonazepam 0.5 mg tablet 1 mg PO BID 12/22/24 5 05/02/25 History trazodone 50 mg tablet 50 mg PO HS 07/29/25 5 Unknown History Allergies Allergy/AdvReac Type Severity Reaction Status Date / Time chlorpheniramine Allergy Unknown Other Verified 10/29/25 11:26 naproxen Allergy Unknown Nose Bleed Verified 10/29/25 11:26 phenylephrine Allergy Unknown Other Verified 10/29/25 11:26 scopolamine Allergy Unknown Other Verified 10/29/25 11:26 ANTICHOLINERGICS,OTHER Allergy Unknown Other Uncoded 10/01/25 13:15 Review of Systems Review of Systems: CONSTITUTIONAL: Denies malaise, chills, sweats, or fever. GASTROINTESTINAL: Denies abdominal pain, nausea, vomiting, constipation, diarrhea SKIN: Reports rectal pain, hemorrhoid. Denies purulent drainage, vesicles, bullae, numbness, pain beyond proportion MUSCULOSKELETAL: Denies joint pain or myalgia. NEUROLOGIC: Denies headache. All systems reviewed & are unremarkable except as noted in HPI and below PMFSH Past Medical History Medical History Cerebrovascular accident (CVA) with left hemiparesis BMI 30.0-30.9,adult Seizure disorder Right middle cerebral artery stroke History of urinary stone (06/2024) Left ureteral stone Anxiety and depression History of arm fracture left distal radius 04/1990 History of chickenpox 04/1990 Diabetes type 2, controlled Migraine headache ADHD Eczema Reflux gastritis HTN (hypertension) Mentally challenged Surgical History Surgical History History of tonsillectomy (2007) Family History Family History Mother Diabetes mellitus Hypertension Pulmonary embolism Seizure Father Diabetes mellitus Heart disease Hypertension Grandparent Diabetes mellitus Heart disease Hypertension Kidney failure Social History Social History Smoking status: Never smoker Second hand tobacco smoke exposure: No Alcohol intake: never Substance use: never Substance use type: does not use and prescription drug Lack of Transportation: No Lack of Food: Never True Current Housing: I Have Housing Concerned About Future Housing: No Difficulty Paying Gas/Electric Bills: No Difficulty Paying for Meds: No Currently Unemployed: No Education: High School Diploma/GED Difficulty w/ Childcare or Family Care: No Living arrangements: with family Occupation/Education: unemployed Gender identity (if verbalized by the patient): Male Spiritual care concerns: No Comments At time of signature, agree with nursing past medical, surgical, social and family history. There is no relevant family history pertinent to the presenting complaint Exam Narrative: GENERAL: Well-appearing, well-nourished, and in no acute distress. HEAD: Normocephalic, atraumatic. EYES: PERRLA, conjunctivae clear ENT: Mucous membranes moist. NECK: Supple. No lymphadenopathy CHEST: Clear to auscultation. No respiratory distress. HEART: Regular rate and rhythm. SKIN: Warm, dry. NEURO: Alert and oriented x3. PSYCH: Normal mood and affect GI: Rectal Exam: normal sphincter tone and External hemorrhoid(s) present Other: No cellulitis, erythema, warmth, induration or abscesses noted Course Course Emergency Course: Patient is aware of diagnosis, understands and agrees to treatment plan. Anticipatory guidance given. Patient agrees to follow-up as directed and is aware of reasons to seek care at the emergency department. Portions of this record may have been created with voice recognition software Level of Care: Express Care Visit MDM Differential Diagnosis Differential Diagnosis: I evaluated this patient in the [facility] care. History is obtained from patient who is an independent historian and physical exam was performed.? Available medical records were reviewed. ? Exam findings and relevant testing show no acute concerns or changes; patient is non-toxic appearing and is in no distress. ? Stasis dermatitis, hemorrhoid, thrombophlebitis, necrotizing fasciitis, erysipelas, cellulitis, Patient presentation of erythema, tenderness, warmth, induration is consistent with cellulitis. No fluctuation, no drainage, no pain out of proportion. Vital signs normal. Pain manageable with OTC medications. Differential diagnosis and treatment plan were discussed with the patient. Patient agrees with discussion and after shared medical decision making agrees with plan of care. All questions were answered to the patient's satisfaction. Patient is appropriate for outpatient treatment and follow-up. Discharge Plan Discharge Clinical Impression: Hemorrhoid Patient Disposition: Home Condition: Stable Instructions: Hemorrhoids (ED) Additional Instructions: 1) Please follow-up with your primary care doctor in the next 1-2 days, general surgery if needed. 2) If you have any worsening of symptoms or any other urgent concerns please go to the ER. 3) Please take medications as prescribed and continue taking your home medications as usual. 4) Please read and follow information included in discharge instructions. Patient Language: Turkmen Prescriptions: New Hemorrhoidal 0.25-3 % suppository 1 supp RECTAL BID Qty: 12 0RF lidocaine [Hemorrhoid-Fissure Pain] 5 % cream 1 applic topical TID PRN (Reason: pain) Qty: 15 0RF No Action quetiapine [Seroquel] 200 mg tablet 100 mg PO HS clonazepam 0.5 mg tablet 1 mg PO BID amoxicillin 875 mg tablet 875 mg PO Q12H Qty: 20 0RF Nurtec ODT 75 mg tablet,disintegrating 75 mg PO ONCE PRN (Reason: migraine headache) Qty: 16 1RF Rx Instructions: as a single dose (DME) blood-glucose meter [Accu-Chek Guide Me Glucose Mtr] [facility] [place] See Rx Instructions .Route Qty: 1 0RF Rx Instructions: daily (DME) Accu-Chek Guide test strips Strip See Rx Instructions .Route Qty: 100 3RF Rx Instructions: daily (DME) lancets [Advanced Travel Lancets] 28 gauge misc See Rx Instructions .Route Qty: 100 3RF Rx Instructions: daily lamotrigine 200 mg tablet 200 mg PO BID Qty: 60 6RF aspirin 81 mg Tablet,Delayed Release (Dr/Ec) 81 mg PO QAM Qty: 30 0RF trazodone 50 mg tablet 50 mg PO HS rosuvastatin 20 mg tablet 20 mg PO DAILY Qty: 90 2RF pantoprazole 40 mg tablet,delayed release (DR/EC) See Rx Instructions .ROUTE .COMPLEX Qty: 180 2RF Dose Instruction: TAKE 1 TABLET BY MOUTH TWICE DAILY Rx Instructions: TAKE 1 TABLET BY MOUTH TWICE DAILY nortriptyline 50 mg capsule 50 mg PO QHS Qty: 90 2RF glimepiride 2 mg tablet 2 mg PO DAILY Qty: 90 1RF lisinopril 20 mg tablet 20 mg PO DAILY Qty: 90 1RF propranolol 160 mg capsule,extended release 24 hr 160 mg PO DAILY Qty: 90 0RF sennosides-docusate sodium [Senokot-S] 8.6-50 mg Tablet 1 tab PO BID Qty: 60 0RF montelukast [Singulair] 10 mg tablet 10 mg PO DAILY Qty: 30 0RF metformin 500 mg tablet extended release 24 hr 1,000 mg PO BID Qty: 120 0RF ezetimibe 10 mg tablet 10 mg PO DAILY Qty: 30 0RF Follow-up/Referrals: Cora Winkler MD [Physician, General Surgery] Referral Note: Hemorrhoids PHYSICIAN,FAMILY ENGAGEMENT SPECIALIST [Primary Care Provider, Internal Medicine] Time of Disposition: 19:37
== END 2025-11-11 19:45 | disposition home or self-care (01) ==
PROVIDERS: Emergency Provider Nurse Practitioner
DX: K64.9 Unspecified hemorrhoids (principal); E11.9 Type 2 diabetes mellitus without complications; Z79.84 Long term (current) use of oral hypoglycemic drugs; I10 Essential (primary) hypertension; I69.354 Hemiplegia and hemiparesis following cerebral infarction affecting left non-dominant side; G40.909 Epilepsy, unspecified, not intractable, without status epilepticus; F41.9 Anxiety disorder, unspecified; F32.A Depression, unspecified; F79 Unspecified intellectual disabilities; Z79.82 Long term (current) use of aspirin
CPT/HCPCS: 99213; G0463